=== PATIENT | male | born 1955 | race Caucasian/White ===

== ENCOUNTER 2020-04-17 13:13 | Inpatient (IN) | payer BC, OTHER ==
[~2020-04-17 13:13] MED LIST: CLOPIDOGREL 75 MG TABLET ONE; FENTANYL CITR 100 MCG/2 ML ONE; HEPARIN 5000 UNIT/ML 1 ML VIAL ONE; HEPARIN/D5W 25,000 UNIT/500 ML BAG IV ONE; MORPHINE 4 MG/ML SYR ONE; NA CHLORIDE 0.9% 1,000 ML ONE; ONDANSETRON 4 MG/2 ML VIAL ONE; TENECTEPLASE 50 MG/10 ML VIAL IV ONE
[2020-04-17 13:31] LABS: Absolute Lymphocytes (CBC) 1.6 K/uL (0.7-4.9); Lymphocytes % 27.7 % (15.3-44.8); MPV 9.4 fL (7.6-11.3)
[2020-04-17 13:32] LABS: Protime INR 0.97
--- OUTSIDE RECORDS SUMMARY | 2020-04-17 13:38 | XMS REPORT ---
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 Assessment Essential hypertension I10 Activ e Problem Essential hypertension I10 Activ e Problem Grieving F43.21 Active Problem Arthritis M19.90 Active Problem Right wrist pain M25.531 Active Problem 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 Problem ED (erectile dysfunction) N52.9 Ac tive Medications Medication Code Code Instructions Start End Status Dosage System Date Date Meloxicam [facility] [address]-62 15 MG Orally Active as directed Novolin R [facility] 21573695252 100 UNIT/ML Active 4 unit s Injection BID Diclofenac [facility] 85981225898 75 MG Orally Active 1 ta blet Sodium Twice a day with food or milk Lisinopril ND 50207180548 10 MG Orally October Active 1 ta blet Once a day 2019 Novolin N [facility] 39000764009 100 UNIT/ML Active 16 uni ts Subcutaneous BID Results Name Result Date Reference Range Unit Abnormali ty Flag HEMOGLOBIN A1C ----A1C 8.1 [id number] Summary Purpose eClinicalWorks Submission
--- OUTSIDE RECORDS SUMMARY | 2020-04-17 13:39 | XMS REPORT | Continuity of Care Document ---
:1955 Author Organization [facility] t Address [address] [place] [address] Care Team Providers Name Role Phone Unavailable Unavailable Unavailable Problems Condition Condition Condition Status Onset Resolution Last Treating Co mments Source Name Details Category Date Date Treatment Clinician Date ED ED Problem Active [facility]erectile Luke [facility] - dysfunctio dysfunctio Me moria n) n[facility] Diabetic Diabetic Problem [facility]urop polyneurop [facility] - athy athy Memoria associated associated l with type with type Outp ati 1 diabetes 1 diabetes en t mellitus mellitus Clinic s Grieving Grieving Problem [facility] Essential Essential Problem Active [facility] hypertensi hypertensi [facility] - on on [facility] Right Right Problem Active [facility] wrist pain wrist pain [facility] Arthritis Arthritis Problem Active [facility] Allergies, Adverse Reactions, Alerts Allergy Allergy Status Severity Reaction(s) Onset Inactive Treating Comm ents Source Name Type Date Date Clinician codeine Adverse Active rash [facility] Reaction [facility] Medications Ordered Filled Start Stop Current Ordering Indication Dosage Frequency Signature Comments Components Source Medication Medication Date Date Medication? Clinician (SIG) Name Name Lisinopril Lisinopril Yes Catie [address] [facility]17 [place] [facility] Novolin R Novolin R Yes Catie [address] [place] [facility]ics Novolin N Novolin N Yes Catie [address] [facility] [place] [facility] Meloxicam Meloxicam Yes Catie as [facility] [place] [facility] Diclofenac Diclofenac Yes Catie [address] [facility] Sodium Sodium [place] with food [facility] - or milk [facility] ent [facility] Immunizations Ordered Filled Immunization Date Status Comments Sour e Immunization Name Name Flucelvax - single Flucelvax - single 2019-09-[address] [facility] - dose syringe dose syringe 00:00:00 [facility] Flucelvax - Flucelvax - 2018-08-[address] [facility] - multidose vial multidose vial 00:00:00 [facility] Procedures This patient has no known procedures. Encounters Start End Encounter Admission Attending Care Care Encounter Source Date/Time Date/Time Type Type Clinicians Facility Department ID 2020-03-02 2020-03-02 [facility] [id number] [facility] 08[facility]00[facility]00 08:00:00 [facility] 2019-12-06 2019-12-06 Outpatient [facility] [id number] 16:09:00 16:09:00 [facility] 2019-11-25 2019-11-25 [facility] [id number] 09:40:00 09:40:00 [facility] Clinics 2019-10-21 2019-10-21 [facility] [id number] 08:40:00 08:40:00 [facility] 2019-09-02 2019-09-02 [facility] [id number] [address] 09:20:00 09:20:00 [facility] 2019-07-21 2019-07-21 [facility] [id number] 16:40:00 16:40:00 [facility] Clinics 2019-07-18 2019-07-18 [facility] [id number] 15:18:00 15:18:00 [facility] Medicine Outpati ent Clinics 2019-06-17 2019-06-17 [facility] [id number] 12:09[facility]00 12:09:[facility] Outpati ent Clinics 2019-06-08 2019-06-08 [facility] [id number] [address] 10:00[facility]00 10:00:00 [facility] Outpati ent Clinics 2018-09-03 2018-09-03 [facility] [id number] [address] 12:10[facility]00 12:10:00 [facility] Outpati ent Clinics 2018-08-18 2018-08-18 [facility] [id number] 15:30[facility] 15:[facility]00 [facility] Results This patient has no known results.
[2020-04-17 13:45] LABS: ALT/SGPT 31 U/L (12-78); AST/SGOT 28 U/L (15-37); Albumin 4.2 g/dL (3.4-5.0); Alkaline Phosphatase 89 U/L (45-117); BUN Blood Urea Nitrogen 24 mg/dL (7-18); Bicarbonate 29 mmol/L (21-32); Bilirubin Direct 0.2 mg/dL (0-0.2); Bilirubin Total 0.7 mg/dL (0.2-1.0); Glucose Level 104 mg/dL (74-106); Magnesium 2.2 mg/dL (1.8-2.4); NT PRO-BNP 178 pg/mL (<125); Potassium 3.9 mmol/L (3.5-5.1); Protein, Total 7.1 g/dL (6.4-8.2); Sodium Level 136 mmol/L (136-145); Troponin (Emerg Dept Use Only) < 0.02 ng/mL (0.0-0.045)
--- NOTE | 2020-04-17 14:05 | RAD REPORT ---
EXAM DESCRIPTION: CT - Angio Aorta For Dissection - 04/17/2020 1:46 pm CLINICAL HISTORY: CHEST PAIN COMPARISON: None. TECHNIQUE: Dynamically enhanced 3 mm thick images of the chest, abdomen, and upper pelvis were obtai ana during administration of approximately 150mL Isovue 370 IV contrast. Sagittal and coronal reconst ruction images were generated using MIP and reviewed. Exam utilizes a protocol to evaluate entire cou rse of the aorta. All CT scans are performed using dose optimization technique as appropriate and may include automated exposure control or mA/KV adjustment according to patient size. FINDINGS: Aorta is normal in diameter with no dissection or other acute aortic findings. Reconstruct ion images show no significant findings. Patient has minimal aortoiliac atherosclerotic calcification s without luminal narrowing. Great vessel origins from the arch are unremarkable. Left vertebral hilda ry arises from the arch has a normal variant. Normal pulmonary artery enhancement. No emboli. No cardiomegaly, pericardial thickening or pericardia l effusion. No mass or infiltrate in the lung parenchyma. No pleural thickening, pleural effusion or pneumothorax . No abnormal mediastinal or hilar mass or lymphadenopathy seen. No chest wall mass or abnormal axillar y lymphadenopathy. Celiac, SMA and renal arteries show no suspicious findings. The liver, spleen and pancreas show no cuellar spicious findings. No gallbladder or biliary tree abnormality. No hydronephrosis or renal obstructive finding. No pyelonephritis or acute renal parenchymal process seen. A prompt, symmetric renal enhanc ement pattern is seen. Partially filled urinary bladder shows no suspicious finding. No mass or bulky lymphadenopathy in the peritoneal or retroperitoneal spaces. No free air, free fluid or inflammatory stranding. No gastric wall thickening or mass. No small bowel abnormality. Moderate stool volume throughout the colon. There is thickening along the left lateral distal rectal wall. CT evaluation is limited but fo llow-up is warranted to exclude mass. Disc and bony degenerative changes are present throughout the lumbar spine. Patient has borderline sp inal stenosis at L4-5 from disc bulge facet degenerative change and ligamentous thickening. Disc bulg e is evident at multiple lumbar levels. Central canal detail is limited. IMPRESSION: Negative CT scan of the aorta for acute finding. Patient has mild for age aortoiliac ath erosclerotic calcifications. No pulmonary artery abnormality or lung parenchymal abnormality seen. No hydronephrosis, obstructing calculus or acute finding. Questionable thickening along the left lateral rectal wall warranting follow-up. Lumbar degenerative disc disease with borderline spinal stenosis at L4-5.
[2020-04-17] MEDS ORDERED: PROMETHAZINE INJ 25 MG/ML AMP ONE (14:45)
--- NOTE | 2020-04-17 14:45 | RAD REPORT ---
EXAM DESCRIPTION: RAD - Chest Single View - 04/17/2020 2:15 pm CLINICAL HISTORY: CHEST PAIN COMPARISON: None TECHNIQUE: AP portable chest image was obtained 04/17/2020 2:15 pm . FINDINGS: No peripheral mass or consolidation. No significant failure or volume overload seen. Inter stitial markings are prominent suspected to be baseline fibrotic change. Trachea is midline. Heart an d vasculature are normal. No measurable pleural effusion and no pneumothorax. No acute bony abnormali ty seen. No acute aortic findings suspected. IMPRESSION: No peripheral mass or consolidation. Prominent interstitial markings suspected to be baseline fibrotic change.
--- NOTE | 2020-04-17 14:48 | ER ---
Nurse's Notes [facility] Name: Meir Scanlon Jr Age: 64 yrs Sex: Male : 1955 Arrival Date: 04/17/2020 Time: 13:14 Bed 8 Private MD: Diagnosis: ST elevation (STEMI) myocardial infarction of unspecified site Presentation: 04/17 13:14 Chief complaint: Patient states: right flank pain X 2 days, was working in heat, in iw slicker suit, pain increased, EKG was done by EMS reported possible ST elevation in V3 V4 V5, pt has hx of kidney stones, pain feels similar. Coronavirus screen: At this time, the client does not indicate any symptoms associated with coronavirus-19. Ebola Screen: Patient negative for fever greater than or equal to 101.5 degrees Fahrenheit, and additional compatible Ebola Virus Disease symptoms Patient denies exposure to infectious person. Patient denies travel to an Ebola-affected area in the 21 days before illness onset. No symptoms or risks identified at this time. Initial Sepsis Screen: Does the patient meet any 2 criteria? No. Patient's initial sepsis screen is negative. Does the patient have a suspected source of infection? No. Patient's initial sepsis screen is negative. Risk Assessment: Do you want to hurt yourself or someone else? Patient reports no desire to harm self or others. Onset of symptoms was April 15, 2020. 13:14 Method Of Arrival: EMS: [facility] iw 13:14 Acuity: REJI 2 iw 13:18 Care prior to arrival: Medication(s) given: ASA, 81 mg, x 4, Nitroglycerin, x 1, iw fentanyl 50 mcg IVP IV initiated. 20 GA, in the right antecubital area. Historical: - Allergies: 13:23 Codeine; iw - Home Meds: 13:23 lisinopril 10 mg Oral tab 1 tab once daily [Active]; diclofenac sodium 75 mg oral TbEC iw 1 tab 2 times per day [Active]; - PMHx: 13:23 Arthritis; Hypertension; Kidney stones; iw 15:00 Diabetes - IDDM; aa5 - PSHx: 13:23 None; iw - Immunization history:: Adult Immunizations up to date. - Social history:: Smoking status: Patient uses. - Family history:: not pertinent. - Hospitalizations: : No recent hospitalization is reported. Screenin:15 Abuse screen: Denies threats or abuse. Nutritional screening: No deficits noted. aa5 Tuberculosis screening: No symptoms or risk factors identified. Fall Risk None identified. Assessment: 13:15 General: Appears comfortable, Behavior is calm, cooperative. Pain: Complains of pain in aa5 right flank Pain does not radiate. Pain currently is 3 out of 10 on a pain scale. Quality of pain is described as sharp, Pain began 2-3 days ago. Is intermittent. Neuro: Level of Consciousness is awake, alert, obeys commands, Oriented to person, place, time, situation. Cardiovascular: Heart tones S1 S2 present Rhythm is regular. Respiratory: Airway is patent Respiratory effort is even, unlabored, Respiratory pattern is regular, symmetrical, Denies shortness of breath. GI: Abdomen is round non-distended, Bowel sounds present X 4 quads. Abd is soft and non tender X 4 quads. Patient currently denies nausea, vomiting. : No signs and/or symptoms were reported regarding the genitourinary system. EENT: No signs and/or symptoms were reported regarding the EENT system. Derm: Skin is moist, Skin is normal, Skin temperature is cool. Musculoskeletal: Range of motion: intact in all extremities. 13:30 Reassessment: Patient is alert, oriented x 3, equal unlabored respirations, skin aa5 warm/dry/pink. Patient denies pain at this time. Patient states feeling better. 14:00 Reassessment: Patient is alert, oriented x 3, equal unlabored respirations, skin aa5 warm/dry/pink. Patient denies pain at this time. 14:35 Reassessment: Repeat EKG completed. ST elevation noted, MD was notified. Pt c/o right aa5 flank pain, rates pain 10/10 on a pain scale. Pt appears uncomfortable. Reports nausea. . 14:35 Derm: Skin is moist, Skin is normal, Skin temperature is cool. aa5 14:45 Neuro: Level of Consciousness is awake, alert, obeys commands, Oriented to person, aa5 place, time, situation. Respiratory: Airway is patent Respiratory effort is even, unlabored, Respiratory pattern is regular, symmetrical. Derm: Skin is moist, Skin is normal, Skin temperature is cool. 14:45 General: Appears uncomfortable. Pain: Pain currently is 10 out of 10 on a pain scale. aa5 14:50 Reassessment: industrial laborer nurse, Delilah, at bedside . aa5 14:50 Reassessment: Patient is alert, oriented x 3, equal unlabored respirations, skin aa5 warm/dry/pink. Patient states feeling better. Pain: Pain currently is 0 out of 10 on a pain scale. Vital Signs: 13:14 BP 140 / 67; Pulse 80; Resp 18 S; Pulse Ox 100% on R/A; iw 13:24 Temp 97.5(O); iw 14:00 BP 140 / 65; Pulse 82; Resp 18 S; Pulse Ox 98% on R/A; aa5 14:35 Weight 73.03 kg (M); aa5 14:45 BP 123 / 61; Pulse 83; Resp 16 S; Pulse Ox 100% on 2 lpm NC; aa5 15:00 BP 128 / 68; Pulse 86; Resp 16 S; Pulse Ox 100% on 2 lpm NC; aa5 ED Course: 13:00 Inserted Maintain EMS IV. Dressing intact. Good blood return noted. Site clean \T\ dry. iw Gauge \T\ site: 20 RAC. 13:14 Patient arrived in ED. iw 13:16 Triage completed. iw 13:17 Quique Suresh MD is Attending Physician. rn 13:19 Meli Krishnamurthy RN is Primary Nurse. aa5 13:19 Arm band placed on. iw 13:20 Patient has correct armband on for positive identification. Placed in gown. Bed in low aa5 position. Call light in reach. Side rails up X2. front end specialist on. Pulse ox on. NIBP on. 13:47 CT Aorta for Dissection In Process Unspecified. EDMS 14:15 XRAY Chest (1 view) In Process Unspecified. EDMS 14:47 Baljinder Suresh MD is Hospitalizing Provider. rn 14:51 Inserted saline lock: 20 gauge in left antecubital area, using aseptic technique. IV iw inserted by MARILOU Castano. 15:00 No provider procedures requiring assistance completed. Patient admitted, IV remains in aa5 place. Administered Medications: 14:41 CANCELLED (Dr. Palak doran dno plavix): PlaVIX 300 mg PO once rn 14:45 Drug: Phenergan 12.5 mg Route: IVP; Site: right antecubital; aa5 14:45 Drug: Demerol 25 mg Route: IVP; Site: right antecubital; aa5 14:50 Drug: Heparin ([place]-Bolus No thrombolytic) - HEParin 60 units/kg {Co-Signature: aa5 iw (Meli Krishnamurthy RN).} {Note: 4000 units administered per MD.} Route: IVP; Site: right antecubital; 14:51 Drug: Heparin ([place] Drip) 12 units/kg/hr - (HEParin 23063 units, D5W 500 ml) iw {Co-Signature: aa5 (Meli Krishnamurthy RN).} Route: IV; Rate: calculated rate; Site: right antecubital; Outcome: 14:47 Decision to Hospitalize by Provider. rn 15:00 Admitted to [employer] accompanied by nurse, accompanied by tech, via stretcher, with aa5 oxygen, on monitor, with chart. 15:00 Condition: stable 15:00 Instructed on the need for admit, Demonstrated understanding of instructions. 15:09 Patient left the ED. aa5 Signatures: Dispatcher [employer] Shelley Barriga, RN RN iw Quique Suresh MD MD rn Calderon, Audri, RN RN [email or web address] Meli Krishnamurthy RN aa5 Corrections: (The following items were deleted from the chart) 17:05 14:35 Reassessment: Repeat EKG completed. aa5 aa5 17:11 14:35 Reassessment: Repeat EKG completed. ST elevation noted, was notified. Pt c/o aa5 right flank pain, rates pain 10/10 on a pain scale. Pt appears uncomfortable. . aa5
--- NOTE | 2020-04-17 14:48 | EDPHYS ---
Physician Documentation [facility] Name: Meir Scanlon Jr Age: 64 yrs Sex: Male : 1955 Arrival Date: 04/17/2020 Time: 13:14 Bed 8 Private MD: ED Physician Quique Suresh HPI: 04/17 14:32 This 64 yrs old Male presents to ER via EMS with complaints of Flank Pain. rn 14:32 The patient complains of pain in the mid back area. The pain does not radiate. Onset: rn The symptoms/episode began/occurred just prior to arrival. Modifying factors: The symptoms are alleviated by nothing. the symptoms are aggravated by nothing. Severity of pain: At its worst the pain was moderate in the emergency department the pain has improved. The patient has not experienced similar symptoms in the past. Reports at work, + right flank/side pain, non-radiating, was diaphoretic and nauseated at work, EMS called, ECG showed ST elevation V3-V5, given aspirin/nitro/fentanyl with improvement of symptoms, pain nearly resolved by time he got here. No trauma. . Historical: - Allergies: 13:23 Codeine; iw - Home Meds: 13:23 lisinopril 10 mg Oral tab 1 tab once daily [Active]; diclofenac sodium 75 mg oral TbEC iw 1 tab 2 times per day [Active]; - PMHx: 13:23 Arthritis; Hypertension; Kidney stones; iw 15:00 Diabetes - IDDM; aa5 - PSHx: 13:23 None; iw - Immunization history:: Adult Immunizations up to date. - Social history:: Smoking status: Patient uses. - Family history:: not pertinent. - Hospitalizations: : No recent hospitalization is reported. ROS: 14:32 Constitutional: Negative for fever, chills, and weight loss, Eyes: Negative for injury, rn pain, redness, and discharge, Neck: Negative for injury, pain, and swelling, Cardiovascular: Negative for chest pain, palpitations, and edema, Respiratory: Negative for shortness of breath, cough, wheezing, and pleuritic chest pain, Abdomen/GI: + nausea Back: + right flank pain MS/Extremity: Negative for injury and deformity, Skin: Negative for injury, rash, and discoloration, Neuro: Negative for headache, weakness, numbness, tingling, and seizure. Exam: 14:32 Constitutional: This is a well developed, well nourished patient who is awake, alert, rn and in no acute distress. Head/Face: Normocephalic, atraumatic. Neck: Trachea midline, no masses palpated, and no cervical lymphadenopathy. Supple, full range of motion without nuchal rigidity, or vertebral point tenderness. No Meningismus. Cardiovascular: Regular rate and rhythm. No pulse deficits. Respiratory: No increased work of breathing, no retractions or nasal flaring. Abdomen/GI: soft, non-tender MS/ Extremity: Pulses equal, no cyanosis. Neurovascular intact. Full, normal range of motion. Equal circumference. Neuro: Awake and alert, GCS 15, oriented to person, place, time, and situation. Cranial nerves II-XII grossly intact. Motor strength 5/5 in all extremities. Sensory grossly intact. 14:39 ECG was reviewed by the Attending Physician. rn Vital Signs: 13:14 BP 140 / 67; Pulse 80; Resp 18 S; Pulse Ox 100% on R/A; iw 13:24 Temp 97.5(O); iw 14:00 BP 140 / 65; Pulse 82; Resp 18 S; Pulse Ox 98% on R/A; aa5 14:35 Weight 73.03 kg (M); aa5 14:45 BP 123 / 61; Pulse 83; Resp 16 S; Pulse Ox 100% on 2 lpm NC; aa5 15:00 BP 128 / 68; Pulse 86; Resp 16 S; Pulse Ox 100% on 2 lpm NC; aa5 MDM: 13:17 Patient medically screened. rn 14:32 Differential diagnosis: nephrolithiasis, appendicitis, kidney stone, dissection, [place]. rn Data reviewed: vital signs, nurses notes, lab test result(s), EKG, radiologic studies, CT scan, and as a result, I will admit patient. Counseling: I had a detailed discussion with the patient and/or guardian regarding: the historical points, exam findings, and any diagnostic results supporting the discharge/admit diagnosis, lab results, radiology results, the need for further work-up and treatment in the hospital. 14:38 ED course: Pt called nurse, having increased pain again, repeat ECG ordered, and now rn shows ST elevation once again, anterior/lateral leads. Cardiology paged, Initial troponin neg. Given aspirin/nitro by EMS, will add heparin and plavix. . 14:46 ED course: Consulted with Dr. 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 . 04/17 13:16 Order name: Basic Metabolic Panel; Complete Time: 13:53 mt 04/17 13:16 Order name: CBC with Diff; Complete Time: 13:53 mt 04/17 13:16 Order name: LFT's; Complete Time: 13:53 mt 04/17 13:16 Order name: Magnesium; Complete Time: 13:53 mt 04/17 13:16 Order name: NT PRO-BNP; Complete Time: 13:53 mt 04/17 13:16 Order name: PT-INR; Complete Time: 13:53 mt 04/17 13:16 Order name: Troponin (emerg Dept Use Only); Complete Time: 13:53 mt 04/17 13:16 Order name: XRAY Chest (1 view) mt 04/17 13:18 Order name: CT Aorta for Dissection; Complete Time: 14:12 rn 04/17 14:31 Order name: CREATININE WHOLE BLOOD EDAK 04/17 13:16 Order name: EKG; Complete Time: 13:17 mt 04/17 13:16 Order name: Cardiac monitoring; Complete Time: 13:17 mt 04/17 13:16 Order name: EKG - Nurse/Tech; Complete Time: 13:17 mt 04/17 13:16 Order name: IV Saline Lock; Complete Time: 13:17 mt 04/17 13:16 Order name: Labs collected and sent; Complete Time: 13:19 mt 04/17 13:16 Order name: O2 Per Protocol; Complete Time: 13:17 mt 04/17 13:16 Order name: O2 Sat Monitoring; Complete Time: 13:17 mt 04/17 14:13 Order name: EKG; Complete Time: 14:14 rn 04/17 14:13 Order name: EKG - Nurse/Tech; Complete Time: 14:56 rn EC:45 Rate is 67 beats/min. Rhythm is regular. QRS [place] is Normal. WI interval is normal. QRS rn interval is normal. QT interval is normal. No Q waves. T waves are Normal. ST Segment is elevated in leads V3, V4, V5, V6. Clinical impression: Lateral [place] - acute. Interpreted by me. Reviewed by me. Administered Medications: 14:41 CANCELLED (Dr. Palak doran dno plavix): PlaVIX 300 mg PO once rn 14:45 Drug: Phenergan 12.5 mg Route: IVP; Site: right antecubital; aa5 14:45 Drug: Demerol 25 mg Route: IVP; Site: right antecubital; aa5 14:50 Drug: Heparin ([place]-Bolus No thrombolytic) - HEParin 60 units/kg {Co-Signature: aaJuventino iw (Meli Krishnamurthy RN).} {Note: 4000 units administered per MD.} Route: IVP; Site: right antecubital; 14:51 Drug: Heparin ([place] Drip) 12 units/kg/hr - (HEParin 70253 units, D5W 500 ml) iw {Co-Signature: aaJuventino (Meli Krishnamurthy RN).} Route: IV; Rate: calculated rate; Site: right antecubital; Disposition: 04/17/20 14:47 Hospitalization ordered by Baljinder Suresh for Inpatient Admission. Preliminary diagnosis is ST elevation (STEMI) myocardial infarction of unspecified site. - Bed requested for Intensive Care Unit. - Status is Inpatient Admission. aa5 - Condition is Stable. - Problem is new. - Symptoms have improved. Critical care time excluding procedures: 14:46 Critical care time: Bedside Care: 25 minutes, Consultation: 5 minutes. Total time: 30 rn minutes Signatures: Dispatcher [employer] Shelley Barriga RN RN iw Nieto, Roman, MD MD rn Calderon, Audri, RN RN aa5 Becky Moncada il Meli [email or web address] Corrections: (The following items were deleted from the chart) 14:41 14:38 PlaVIX 300 mg PO once ordered. rn rn 14:46 14:39 ECG was reviewed by the Attending Physician. rn rn 15:09 14:47 Hospitalization Ordered by Baljinder Suresh MD for Inpatient Admission. Preliminary aa5 diagnosis is ST elevation (STEMI) myocardial infarction of unspecified site. Bed requested for Intensive Care Unit. Status is Inpatient Admission. Condition is Stable. Problem is new. Symptoms have improved. rn
[2020-04-17] MEDS ORDERED: HEPARIN/D5W 25,000 UNIT/500 ML BAG IV ONE (14:55)
[2020-04-17] MEDS ORDERED: MEPERIDINE HCL 50 MG/ML ONE (14:55)
[2020-04-17] MEDS ORDERED: ATROPINE SULF 1 MG/10 ML SYR IV ONE (15:16)
[2020-04-17] MEDS ORDERED: FENTANYL CITR 100 MCG/2 ML ONE ×2 (15:16→16:10)
[2020-04-17] MEDS ORDERED: MIDAZOLAM HCL 2 MG/2 ML INJ ONE ×2 (15:16→15:48)
[2020-04-17] MEDS ORDERED: NITROGLYCERIN 100 MCG/ML SYR (for cath lab use only) IV ONE (15:16)
[2020-04-17] MEDS ORDERED: LIDOCAINE 1% 20 ML MDV ONE (15:16)
[2020-04-17] MEDS ORDERED: HEPA 1000U/500MLS 1,000 UNIT/500 ML BAG IV ONE (15:16)
[2020-04-17] MEDS ORDERED: NA CHLORIDE 0.9% 50 ML ONE (15:17)
[2020-04-17] MEDS ORDERED: NA CHLORIDE 0.9% 1,000 ML ONE ×2 (15:18→20:22)
[2020-04-17 16:04] VITALS: O2SAT 100
--- NOTE | 2020-04-17 16:08 | P.HP ---
Certification for Inpatient Patient admitted to: Inpatient With expected LOS: >2 Midnights Practitioner: I am a practitioner with admitting privileges, knowledge of patient current condition, hospital course, and medical plan of care. Services: Services provided to patient in accordance with Admission requirements found in Title 42 Section 412.3 of the Code of Federal Regulations Patient History Date of Service: 04/17/20 Primary Care Provider: Mahesh Reason for admission: STEMI History of Present Illness: 64yo male, PMH: HTN, DM2 insulin dependent, kidney stones, who presented to ED due to sudden onset R flank pain at work today. Patient states he was otherwise in his usual state of health. no radiation. not alleviated or aggravated by anything. Moderate pain, associated with nausea and diaphoresis at work. EMS was called and repoted ECG showing ST elevation V3-V5, given aspirin, nitro, fentanyl with improvement in symptoms. Initital vitals were WNL and stable. repeat ECG on arrival with resolution of ST changes, then patient had recurrence of patient and repeat ECG with ST elevations again. Initial troponin negative. Cardiology was consulted and patient will go for cardiac catheterization. - Past Medical/Surgical History -: HTN -: Insulin dependent DM2 -: kidney stones Past Surgical History: Unable to obtain - Family History Father -: Heart disease ([place] in early 60s) - Social History Smoking Status: Current every day smoker (cigars) Alcohol use: Yes Place of Residence: Home Review of Systems 10-point ROS is otherwise unremarkable Physical Examination - Physical Exam General: Alert, In no apparent distress, Oriented x3 HEENT: EOMI, Sclerae nonicteric Neck: No LAD Respiratory: Clear to auscultation bilaterally, Normal air movement Cardiovascular: No edema, Regular rate/rhythm, Normal S1 S2 Gastrointestinal: Soft and benign, Non-distended, No tenderness Musculoskeletal: No erythema Integumentary: No rashes Neurological: Normal speech, Normal affect - Studies Laboratory Data (last 24 hrs) 04/17/20 13:15: PT 11.4, INR 0.97 04/17/20 13:15: WBC 5.9, Hgb 14.5, Hct 42.0, Plt Count 216 04/17/20 13:15: Sodium 136, Potassium 3.9, BUN 24 H, Creatinine 1.04, Glucose 104, Magnesium 2.2, Total Bilirubin 0.7, AST 28, ALT 31, Alkaline Phosphatase 89 Assessment and Plan - Advance Directives Does patient have a Living Will: No Does patient have a Durable POA for Healthcare: No Physician Review Additional Text: STEMI R Flank pain HTN DM2 Tobacco use -cardiology consulted in ED, pt taken to quality lab technician during my exam -I will f/u with cardiology after cath -CT dissection protocol negative for aorta pathology, no obstructing kidney stone -R flank pain - atypical presentation of ACS, but pt is diabetic -will confirm and restart home meds as appropriate -for now, glc accucheks, sliding scale insulin -admits to drinking EtOH daily, but last drink was ~5 days ago, no h/o withdrawal Dispo: pending cath results Time Spent Managing Pts Care (In Minutes): 55
[2020-04-17] MEDS ORDERED: PRASUGREL (EFFIENT) 10 MG TAB PO ONE (17:00)
[2020-04-17] MEDS ORDERED: ACETYLCYST 20% 800 MG/4 ML VIAL PO ONE (18:00)
[2020-04-17] MEDS: INSULIN -REGULAR HUMAN 50 UNIT/0.5 ML ML SQ SCH ×2 (18:00→20:10)
[2020-04-17] MEDS ORDERED: INFLUENZA VACCINE (for 3y+) 0.5 ML DOSE IMVAC ONE (19:00)
[2020-04-17] MEDS ORDERED: PRASUGREL (EFFIENT) 10 MG TAB ONE (19:02)
[2020-04-17] MEDS ORDERED: ACETAMINOPHEN 325 MG TABLET PO PRN (19:22)
[2020-04-17 19:38] VITALS: BMI 23.6
[2020-04-17] MEDS: NA CHLORIDE 0.9% 1,000 ML IV SCH (20:10)
[2020-04-17] MEDS ORDERED: DIAZEPAM 5 MG TABLET PO PRN (21:31)
[2020-04-17] MEDS ORDERED: MORPHINE 4 MG/ML SYR IV PRN (21:31)
[2020-04-17] MEDS ORDERED: NITROGLYCERIN 0.4 MG/TAB SL PRN (21:36)
[2020-04-17] MEDS ORDERED: MORPHINE 4 MG/ML SYR ONE (21:56)
[2020-04-18] MEDS: NA CHLORIDE 0.9% 1,000 ML IV SCH (02:29)
[2020-04-18 05:20] LABS: Absolute Lymphocytes (CBC) 1.8 K/uL (0.7-4.9); Basophils % 0.6 % (0-1.3); Hematocrit 41.1 % (39.6-49.0); Lymphocytes % 27.3 % (15.3-44.8); MPV 9.3 fL (7.6-11.3); RBC Red Blood Cell Count 4.51 M/uL (4.33-5.43)
[2020-04-18 05:34] LABS: Albumin 3.2 g/dL (3.4-5.0); Bilirubin Total 0.8 mg/dL (0.2-1.0); Magnesium 1.9 mg/dL (1.8-2.4); Potassium 4.5 mmol/L (3.5-5.1); Protein, Total 6.1 g/dL (6.4-8.2)
[2020-04-18 07:29] VITALS: TEMP 98.7
[2020-04-18] MEDS: INSULIN -REGULAR HUMAN 50 UNIT/0.5 ML ML SQ SCH (07:30)
[2020-04-18] MEDS ORDERED: GLUCAGON 1 MG/VIAL IM PRN (08:10)
[2020-04-18] MEDS ORDERED: D50W 25 GM/50 ML SYRINGE/VIAL IV PRN (08:10)
[2020-04-18] MEDS ORDERED: INSULIN -REGULAR HUMAN 50 UNIT/0.5 ML ML ONE (08:40)
--- NOTE | 2020-04-18 09:15 | P.DS ---
Admission Date: 04/17/20 Discharge Date: 04/18/20 Primary Care Provider: Mahesh Disposition: ROUTINE DISCHARGE Discharge Condition: GOOD Reason for Admission: STEMI Consultations: Cardiology - Dr. Cid Procedures: CXR (04/17): No peripheral mass or consolidation. Prominent interstitial markings suspect to be baseline fibrotic change. CT angio dissection protocol (04/17): Negative CT scan of the aorta for acute finding. The patient has mild her HGB aortic iliac atherosclerotic calcifications. No pulmonary artery abnormality or lung parenchymal abno rmalities seen. No Hydronephrosis, obstructing calculus or acute finding. Questionable thickening along the left lateral rectal wall warranting followup. Lumbar degenerative disk disease with borderline spinal stenosis at L4-L5 Renal ultrasound (04/18) no hydronephrosis or suspicious renal mass. No other significant findings Cardiac Catheterization (04/17): Final report unavailable at time of discharge, the patient underwent stenting of the RCA due to 90% stenosis Problem List: STEMI R Flank pain HTN Type 1 Diabetes Tobacco use Brief History of Present Illness: 64yo male, PMH: HTN, DM2 insulin dependent, kidney stones, who presented to ED due to sudden onset R flank pain at work today. Patient states he was otherwise in his usual state of health. no radiation. not alleviated or aggravated by anything. Moderate pain, associated with nausea and diaphoresis at work. EMS was called and reported ECG showing ST elevation V3-V5, given aspirin, nitro, fentanyl with improvement in symptoms. Initital vitals were WNL and stable. repeat ECG on arrival with resolution of ST changes, then patient had recurrence of patient and repeat ECG with ST elevations again. Initial troponin negative. Cardiology was consulted and patient will go for cardiac catheterization. Hospital Course: Patient was taken to the cardiac shift lab technician, and underwent stenting of the distal RCA due to 90% stenosis. On the following day, patient was feeling well, tolerating diet, with stable vital signs and he was discharged home. On day of discharge she still continued to report some right flank/hip pain. This was reproducible on exam and aggravated with movement. CT was reviewed and did not show any intra-abdominal abnormality. The pain is likely musculoskeletal and patient was discharged with Flexeril and to follow up with PCP. His discharge prescriptions for aspirin, Lipitor, and Plavix. He is to follow up with Cardiology. Vital Signs/Physical Exam: Temp Pulse Resp BP Pulse Ox 98.7 F 62 12 111/51 L 99 04/18/20 07:00 04/18/20 06:00 04/18/20 06:00 04/18/20 06:00 04/18/20 06:00 General: Alert, In no apparent distress, Oriented x3 HEENT: Mucous membr. moist/pink Neck: No LAD Respiratory: Clear to auscultation bilaterally, Normal air movement Cardiovascular: No edema, Regular rate/rhythm, Normal S1 S2 Gastrointestinal: Soft and benign, Non-distended, No tenderness Musculoskeletal: Other (mild tenderness to palpation at R flank / just posterior to iliac crest. no tenderness down spine or of paraspinal muscles) Integumentary: No rashes, No breakdown Neurological: Normal speech, Normal affect Laboratory Data at Discharge: WBC 6.6 K/uL (4.3-10.9) 04/18/20 05:00 Hgb 14.3 g/dL (13.6-17.9) 04/18/20 05:00 Hct 41.1 % (39.6-49.0) 04/18/20 05:00 Plt Count 188 K/uL (152-406) 04/18/20 05:00 PT 11.4 SECONDS (9.5-12.5) 04/17/20 13:15 INR 0.97 04/17/20 13:15 Sodium 138 mmol/L (136-145) 04/18/20 05:00 Potassium 4.5 mmol/L (3.5-5.1) 04/18/20 05:00 BUN 16 mg/dL (7-18) 04/18/20 05:00 Creatinine 0.87 mg/dL (0.55-1.3) 04/18/20 05:00 Glucose 279 mg/dL (74-106) H 04/18/20 05:00 Magnesium 1.9 mg/dL (1.8-2.4) 04/18/20 05:00 Total Bilirubin 0.8 mg/dL (0.2-1.0) 04/18/20 05:00 AST 19 U/L (15-37) 04/18/20 05:00 ALT 25 U/L (12-78) 04/18/20 05:00 Alkaline Phosphatase 66 U/L (45-117) 04/18/20 05:00 Triglycerides 60 mg/dL (<150) 04/18/20 05:00 Cholesterol 155 mg/dL (<200) 04/18/20 05:00 HDL Cholesterol 55 mg/dL (40-60) 04/18/20 05:00 Cholesterol/HDL Ratio 2.82 04/18/20 05:00 Home Medications: Diclofenac Na [Voltaren D.r*] 75 mg PO DAILY 04/17/20 Insulin NPH Human Isophane [Novolin N] 16 units SQ BIDWM 04/17/20 Insulin Regular, Human [Novolin R] 4 units SQ BIDWM 04/17/20 Lisinopril [Zestril] 10 mg PO DAILY 04/17/20 Aspirin [Aspirin EC 81 MG] 81 mg PO DAILY 30 Days #30 tablet. 04/18/20 Atorvastatin Calcium [Lipitor] 1 tab PO BEDTIME 30 Days #30 tab 04/18/20 Clopidogrel Bisulfate [Plavix*] 1 tab PO DAILY 30 Days #30 tablet 04/18/20 Cyclobenzaprine HCl [Flexeril] 5 mg PO Q8HR PRN 4 Days #12 tablet 04/18/20 New Medications: Cyclobenzaprine HCl [Flexeril] 5 mg PO Q8HR PRN 4 Days #12 tablet PRN Reason: Muscle Spasms Aspirin [Aspirin EC 81 MG] 81 mg PO DAILY 30 Days #30 tablet. Atorvastatin Calcium [Lipitor] 1 tab PO BEDTIME 30 Days #30 tab Clopidogrel Bisulfate [Plavix*] 1 tab PO DAILY 30 Days #30 tablet Patient Discharge Instructions: Follow up with PCP within 1 week. Follow up with Cardiology within 2-3 weeks. New Medications: Aspirin 81mg daily. Clopidrogrel 75mg (Plavix) daily. Atorvastatin 80mg (Lipitor) - once a day at bedtime Diet: ADA Activity: Ad ann Time spent managing pt's care (in minutes): 35
--- NOTE | 2020-04-18 09:19 | RAD REPORT ---
EXAM DESCRIPTION: US - Renal Ultrasound-Complete - 04/18/2020 8:58 am CLINICAL HISTORY: R flank pain, h/o nephrolithiasis COMPARISON: Angio Aorta For Dissection dated 04/17/2020 FINDINGS: The right kidney measures 10.8 x 4.7 x 5.7 cm. The left kidney measures 11.1 x 5.6 x 5.2 cm. Renal cortical thickness and echogenicity are normal. No hydronephrosis or suspicious renal mass. No bladder wall thickening or mass. No intraluminal stone or mass. IMPRESSION: No hydronephrosis or suspicious renal mass. No other significant findings.
[2020-04-18] MEDS: NPH (HUMAN) 100 UNITS/ML INSULIN SQ SCH ×2 (09:28→09:31)
[2020-04-18] MEDS: CLOPIDOGREL 75 MG TABLET PO SCH (09:29)
[2020-04-18] MEDS: ASPIRIN EC 81 MG TAB PO SCH (09:29)
[2020-04-18] MEDS ORDERED: ASPIRIN EC 81 MG TAB PO ONE (09:35)
[2020-04-18] MEDS ORDERED: CLOPIDOGREL 75 MG TABLET ONE (09:35)
[2020-04-18 09:36] VITALS: BP 132/53
[2020-04-18] MEDS ORDERED: NPH (HUMAN) 100 UNITS/ML INSULIN SQ ONE (09:40)
[2020-04-18] MEDS ORDERED: NA CHLORIDE 0.9% 1,000 ML ONE (12:15)
[2020-04-18] MEDS ORDERED: ATORVASTATIN 80 MG TAB PO SCH (21:00)
--- NOTE | 2020-04-19 07:08 | EKG ---
Test Date: 2020-04-17 Test Time: 13:10:45 Information Clerk Cashier: GEOFFREY MEASUREMENT RESULTS: Intervals: Rate: 83 RI: 198 QRSD: 86 QT: 390 QTc: 458 [place]: P: 72 RI: 198 QRS: 28 T: 83 INTERPRETIVE STATEMENTS: Normal sinus rhythm Biatrial enlargement Abnormal ECG No previous ECG available for comparison Electronically Signed On 04-19-20 07:04:16 CDT by Duke Cid
--- NOTE | 2020-04-19 07:08 | EKG ---
Test Date: 2020-04-17 Test Time: 14:35:56 Police Crime Scene Technician: GEOFFREY MEASUREMENT RESULTS: Intervals: Rate: 67 IL: 196 QRSD: 90 QT: 414 QTc: 437 [place]: P: 49 IL: 196 QRS: 69 T: 84 INTERPRETIVE STATEMENTS: Normal sinus rhythm ST elevation, consider anterolateral injury or acute infarct ACUTE [place] Abnormal ECG Compared to ECG 04/17/2020 13:10:45 ST (T wave) deviation now present Myocardial infarct finding now present Atrial abnormality no longer present Electronically Signed On 04-19-20 07:04:15 CDT by Duke Cid
--- NOTE | 2020-04-19 12:35 | CON ---
Reason For Admission And Consultation: Acute inferior DE. History Of Present Illness: The patient is a 64-year-old who has a past medical history of nephrolit hiasis, hypertension, and diabetes, came in with chest pain radiating to the back. No nausea, vomiti ng, diaphoresis. He was short of breath. Denied PND, orthopnea, pedal edema, palpitations, or synco pe. EKG showed ST elevation in V3, V5. The patient has already received heparin and continued to maravilla ve pain. There was a plan to take him to the emergency room acutely for an emergency heart catheteri zation with possible intervention. Past Medical History: As stated above. Allergies: HE IS ALLERGIC TO CODEINE. Review of Systems: Negative. Social History: Positive for tobacco. Family History: Positive for heart disease. Past Surgical History: Negative. Physical Examination: Vital Signs: When I saw him, his pressure was 140/67, pulse is 80, respiratory rate is 18, pulse ox is 100% O2 saturation on room air. HEENT: Negative. Neck: Supple with no bruit. Chest: Clear to auscultation and percussion. Cardiac: Revealed regular rhythm and rate. No murmurs, gallops, or rubs. Abdomen: Benign. Extremities: Revealed no clubbing, cyanosis, or edema. EKG showed acute anterior DE. Chest x-ray w as negative CT dissection was negative. Impression And Plan: 1.Acute what looks like anterior myocardial infarction. 2.Hypertension. 3.Diabetes. 4.Tobacco use. The patient will be taken to the tin can laborer emergently today for a catheterization and possible interve ntion. Heparin will be stopped linux consultant to the tin can laborer. Aspirin had been given. The patient is hem odynamically stable. Normal blood pressure, normal heart rate. He understand the risk and the benef its of the procedure. He agrees to proceed. SOCORRO/JALEN Voice ID: [id number] Report ID: [id number]
--- NOTE | 2020-04-19 12:53 | OP ---
Surgeon: Duke Cid MD Kick Plate Installer: Samantha Echols. The patient received aspirin, Angiomax and Plavix during the procedure. His heparin was stopped befo re the procedure. He will rest overnight. We will send him home tomorrow. He will he will be going home on aspirin, Plavix, Lipitor, and beta pam. Indications: Mr. Scanlon is a 64-year-old white male who was brought from emergency room emergently fo r an acute inferior LA. The patient is a 64-year-old, has had a history of hypertension, dyslipidemi a. No previous history of coronary artery disease. Has had some nephrolithiasis. [facility] into [facility] room with chest pain. EKG changes consistent with acute inferior LA. He was bolused with hep karissa and aspirin and was brought to the labview programmer emergently. Description Of Procedure: In the labview programmer, he was prepped and draped in the routine sterile fashion. He was still having chest pain with some ST elevation. He received Versed and fentanyl for sedatio n. A 6-Cuban sheath was introduced in the right common femoral artery successfully. 10 cc of xyloc sami was used to numb the right groin. Seldinger technique was used. A JR4 catheter and JL4 cathete r were used to respectively inject the left main and the right main. His RCA showed a mid to distal 99% stenosis with ESTELLA 2 flow. His LAD, left main were normal. Circumflex was normal. A myocardial bridge with minimal plaquing was noted in the mid to distal LAD. Intervention was decided upon. A JR4 6-Cuban guide with side hole was used to cannulate the right main. A [place] wire was used to cr oss the lesion successfully. A 2.5 x 16 Synergy stent was placed in the RCA distally with excellent result, 0% residual and ESTELLA-3 flow. No acute closure and no thrombus. The patient tolerated the pr ocedure very well. Blood Loss: 5 cc 5 mL. Anesthesia: Total conscious sedation was 60 minutes. NB/MODL Voice ID: [id number] Report ID: [id number]
--- NOTE | 2020-04-19 13:35 | PN ---
Date of Progress Note: 04/18/2020 Subjective: Mr. Scanlon was admitted with an acute anterior ID by EKG, but when the catheterization wa s done yesterday, he had a very large wraparound RCA with a 90% stenosis in the distal RCA. He under went a primary stent emergently of the RCA. He had initially a ESTELLA-2 flow. This improved to a ESTELLA -3 flow with 0% residual. No complication. No thrombus. No acute closure. The patient tolerated t he procedure well. He was observed overnight. Overnight, he has no more chest pain. He has normal telemetry with sinus rhythm. Physical Examination: Vital Signs: Stable. He was afebrile. His right groin site was intact. Chest: Clear. Cardiac: Normal. Extremities: Revealed good distal pulses. Impression And Plan: This is a patient with history of hypertension, diabetes, status post acute arleth cardial infarction secondary to stenosis of the right coronary artery status post primary stent of th e right coronary artery with excellent results. The patient should go home today on his home medicat ions plus Lipitor 80 mg daily and Plavix 75 mg daily. I will see him in the office in the next 2 jonna QUINTANILLA/JALEN Voice ID: [id number] Report ID: [id number]
== END 2020-04-18 11:35 | disposition home or self-care (01) | DRG 247 ==
LOC: ER 13:13 → ERHOLD 15:17
PROVIDERS: ADMIT Hospitalist; ATTEND Hospitalist
PROC: 027034Z Dilation of Coronary Artery, One Artery with Drug-eluting Intraluminal Device, Percutaneous Approach (ICD-10-PCS; principal; 2020-04-17)
PROC: 4A023N7 Measurement of Cardiac Sampling and Pressure, Left Heart, Percutaneous Approach (ICD-10-PCS; 2020-04-17)
PROC: B2111ZZ Fluoroscopy of Multiple Coronary Arteries using Low Osmolar Contrast (ICD-10-PCS; 2020-04-17)
DX: I21.09 ST elevation (STEMI) myocardial infarction involving other coronary artery of anterior wall (principal); E10.9 Type 1 diabetes mellitus without complications; I10 Essential (primary) hypertension; F17.210 Nicotine dependence, cigarettes, uncomplicated; Z88.5 Allergy status to narcotic agent; Z79.899 Other long term (current) drug therapy; Z79.82 Long term (current) use of aspirin; Z79.02 Long term (current) use of antithrombotics/antiplatelets; Z79.4 Long term (current) use of insulin; Z20.828 Contact with and (suspected) exposure to other viral communicable diseases
CPT/HCPCS: 36415; 71045; 71275; 74175; 76770; 80048; 80053; 80061; 80076; 82565; 82947; 83036; 83735; 83880; 84484; 85025; 85347; 85610; 92928; 93005; 93454; 96374; 96375; 99285; C1725; C1760; C1893; J0583; J1644; J1815; J2175; J2250; J2405; J2550; J3010; J3101; J7030; Q9967; U0002

== ENCOUNTER 2021-07-17 18:02 | Emergency (ER) | payer BC ==
--- OUTSIDE RECORDS SUMMARY | 2021-07-17 18:05 | XMS REPORT | Continuity of Care Document ---
:1955 Author Organization [facility] t Address [address] [place] [address] Care Team Providers Name Role Phone Unavailable Unavailable Unavailable Problems This patient has no known problems. Allergies, Adverse Reactions, Alerts Allergy Allergy Status Severity Reaction(s) Onset Inactive Treating Comm ents Source Name Type Date Date Clinician codeine Adverse Active rash [facility] Medications Ordered Filled Start Stop Current Ordering Indication Dosage Frequency Signature Comments Components Source Medication Medication Date Date Medication? Clinician (SIG) Name Name Lisinopril Lisinopril Yes Catie [address] [facility] [place] [facility] ent Clinics Novolin R Novolin R Yes Catie [address] [place] [facility]ics Novolin N Novolin N Yes Catie [address] [facility] [place] [facility] Meloxicam Meloxicam Yes Catie as [facility] [place] [facility] Diclofenac Diclofenac Yes Catie [address] [facility] Sodium Sodium [place] with food [facility] Immunizations Ordered Filled Immunization Date Status Comments Sourc e Immunization Name Name Flucelvax - single Flucelvax - single 2019-09-[address] [facility] - dose syringe dose syringe 00:00:00 [facility] Flucelvax - Flucelvax - 2018-08-[address] [facility] - multidose vial multidose vial 00:00:00 [facility]patient [facility] Procedures This patient has no known procedures. Encounters Start End Encounter Admission Attending Care Care Encounter Source Date/Time Date/Time Type Type Clinicians Facility Department ID 2021-05-24 2021-05-24 ambulatory [facility] [id number] [facility] 2021-05-23 2021-05-23 ambulatory [facility] [id number] [facility] 2021-03-08 2021-03-08 Out[facility] [id number] [facility] 2021-03-03 2021-03-03 Out[facility] [id number] [facility] 2021-03-01 2021[facility]03-01 Outpatient [facility] [id number] [facility] 2020-11-07 2020-11-07 Outpatient [facility] [id number] [facility] 2020-11-05 2020-11-05 Outpatient [facility] [id number] [facility] 2020-11-02 2020-11-02 Outpatient [facility] [id number] [facility] 2020-07-20 2020-07-20 Outpatient [facility] [id number] [facility] 2020-07-11 2020-07-11 Outpatient [facility] [id number] [facility] 2020-07-11 2020-07-11 Out[facility] [id number] [facility] 2020-05-17 2020-05-17 [facility] [id number] [facility] 2020-05-10 2020-05-10 [facility] [id number] [facility] 2020-05-03 2020-05-03 [facility] [id number] [facility] 2020-04-19 2020-04-19 [facility] [id number] [facility] 2020-04-18 2020-04-18 [facility] [id number] [facility] 2020-03-02 2020-03-02 [facility] [id number] [facility] 08[facility]00 08[facility]00:00 [facility] 2019-12-06 2019-12-06 [facility] [id number] [facility] 16[facility]09[facility]00 16:09[facility]00 [facility] 2019-11-25 2019-11-25 [facility] [id number] [address] 09:40[facility]00 09:40:00 t [facility] 2019-10-21 2019-10-21 [facility] [id number] 08:40:00 08:40:00 t [facility] 2019-09-02 2019-09-02 [facility] [id number] 09:20:00 09:20:00 t [facility] 2019-07-21 2019-07-21 [facility] [id number] 16:40:00 16:40:00 [facility] Medicine Outpati ent Clinics 2019-07-18 2019-07-18 [facility] [id number] 15:18:00 15:18:00 [facility] Medicine Outpati ent Clinics 2019-06-17 2019-06-17 [facility] [id number] 12:09:00 12:09:00 [facility] Medicine Outpati ent Clinics 2019-06-08 2019-06-08 [facility] [id number] 10:00:00 10:00:00 [facility] Medicine Outpati ent Clinics 2018-09-03 2018-09-03 [facility] [id number] [facility] 12[facility]10:00 12:10:00 [facility] Medicine Outpati ent Clinics 2018-08-18 2018-08-18 [facility] [id number] [facility] 15:30:00 15:30:00 [facility] Medicine Outpati ent Clinics Results This patient has no known results.
[2021-07-17 21:33] LABS: Protime INR 0.89
[2021-07-17 21:39] LABS: Absolute Lymphocytes (CBC) 2.3 K/uL (0.7-4.9); Hematocrit 46.1 % (39.6-49.0); Lymphocytes % 39.5 % (15.3-44.8)
[2021-07-17 21:48] LABS: ALT/SGPT 34 U/L (12-78); AST/SGOT 23 U/L (15-37); Albumin 3.8 g/dL (3.4-5.0); Alkaline Phosphatase 102 U/L (45-117); BUN Blood Urea Nitrogen 10 mg/dL (7-18); Bicarbonate 29 mmol/L (21-32); Bilirubin Direct 0.2 mg/dL (0-0.2); Bilirubin Total 0.5 mg/dL (0.2-1.0); Glucose Level 59 mg/dL (74-106); Lipase 56 U/L (73-393); Potassium 3.6 mmol/L (3.5-5.1); Sodium Level 141 mmol/L (136-145)
--- NOTE | 2021-07-17 22:01 | EDPHYS ---
Physician Documentation [facility] Name: Meir Scanlon Jr Age: 65 yrs Sex: Male : 1955 Arrival Date: 07/17/2021 Time: 18:12 Bed 23 Private MD: Catie Sheikh ED Physician Garfield Bernal HPI: 07/17 21:02 This 65 yrs old Male presents to ER via Ambulatory with complaints of Bloody Stools. sp3 21:02 65-year-old male with a history of diabetes, hypertension, kidney stones, myocardial sp3 infarction presents to the ED for chief complaint blood around his stools in the toilet with bowel movements x2 today. Patient initially activated EMS and after EMS got there told him that his vital signs were normal and the blood was minimal and he may drive himself therefore he drove himself here today. Patient denies any nausea, vomiting, diarrhea, abdominal pain, headache, neck pain, back pain, bleeding in other places including gums during brushing, nose, urine, or any easy bruising. Patient not on any blood thinners. Patient denies history of hemorrhoids or prior GI bleeds.. Historical: - Allergies: 18:45 Codeine; jl7 - Home Meds: 18:45 diclofenac sodium 75 mg Oral TbEC 1 tab 2 times per day [Active]; lisinopril 10 mg Oral jl7 tab 1 tab once daily [Active]; atorvastatin oral [Active]; clopidogrel 75 mg oral tab [Active]; Insulin: Novolin R 4 units Sub-Q [Active]; Insulin: Novolin N Sub-Q 16 unit [Active]; - PMHx: 18:45 Arthritis; Diabetes - IDDM; Hypertension; Kidney stones; Myocardial infarction; jl7 - Immunization history:: Client reports receiving the 2nd dose of the Covid vaccine, Moderna. - Social history:: Smoking status: Patient denies any tobacco usage or history of. ROS: 21:03 Constitutional: Negative for fever, chills, and weight loss, Eyes: Negative for injury, sp3 pain, redness, and discharge, ENT: Negative for injury, pain, and discharge, Neck: Negative for injury, pain, and swelling, Cardiovascular: Negative for chest pain, palpitations, and edema, Respiratory: Negative for shortness of breath, cough, wheezing, and pleuritic chest pain, Back: Negative for injury and pain, : Negative for injury, bleeding, discharge, and swelling, MS/Extremity: Negative for injury and deformity, Skin: Negative for injury, rash, and discoloration, Neuro: Negative for headache, weakness, numbness, tingling, and seizure, Psych: Negative for depression, anxiety, suicide ideation, homicidal ideation, and hallucinations, Allergy/Immunology: Negative for hives, rash, and allergies, Endocrine: Negative for neck swelling, polydipsia, polyuria, polyphagia, and marked weight changes. 21:03 All other systems are negative. Exam: 21:04 Constitutional: This is a well developed, well nourished patient who is awake, alert, sp3 and in no acute distress. Head/Face: Normocephalic, atraumatic. Eyes: Pupils equal round and reactive to light, extra-ocular motions intact. Lids and lashes normal. Conjunctiva and sclera are non-icteric and not injected. Cornea within normal limits. Periorbital areas with no swelling, redness, or edema. Neck: Trachea midline, no thyromegaly or masses palpated, and no cervical lymphadenopathy. Supple, full range of motion without nuchal rigidity, or vertebral point tenderness. No Meningismus. Chest/axilla: Normal chest wall appearance and motion. Nontender with no deformity. No lesions are appreciated. Cardiovascular: Regular rate and rhythm with a normal S1 and S2. No gallops, murmurs, or rubs. Normal PMI, no JVD. No pulse deficits. Respiratory: Lungs have equal breath sounds bilaterally, clear to auscultation and percussion. No rales, rhonchi or wheezes noted. No increased work of breathing, no retractions or nasal flaring. Abdomen/GI: Soft, non-tender, with normal bowel sounds. No distension or tympany. No guarding or rebound. No evidence of tenderness throughout. Back: No spinal tenderness. No costovertebral tenderness. Full range of motion. Skin: Warm, dry with normal turgor. Normal color with no rashes, no lesions, and no evidence of cellulitis. 21:04 : Patient has multiple external hemorrhoids several of which are bleeding and none of which are thrombosed. None of which are painful.. Vital Signs: 18:44 BP 146 / 72; Pulse 77; Resp 17; Temp 98.3; Pulse Ox 100% on R/A; Weight 70.76 kg; jl7 Height 5 ft. 9 in. (175.26 cm); Pain 0/10; 20:50 BP 133 / 62 LA Supine (auto/reg); Pulse 55 MON; Resp 16 S; Temp 98.4(O); Pulse Ox 100% tk1 on R/A; 21:50 BP 124 / 64 LA Supine (auto/reg); Pulse 61; Resp 16 S; Pulse Ox 100% on R/A; tk1 18:44 Body Mass Index 23.04 (70.76 kg, 175.26 cm) jl7 Donavan Coma Score: 20:50 Eye Response: spontaneous(4). Verbal Response: oriented(5). Motor Response: obeys tk1 commands(6). Total: 15. MDM: 20:45 Patient medically screened. sp3 21:05 Data reviewed: vital signs, nurses notes. ED course: Given physical exam and normal sp3 vital signs, patient's symptoms are likely from bleeding hemorrhoids and not from an internal GI bleed itself. We will check routine laboratory values and discharge patient home to follow-up with PCP in general surgery to assess for any potential intervention from that standpoint. I have discussed at length with patient proper diet, fiber intake, and stool softeners to help with this. Have also counseled him on points to return to the ED in the event of an actual internal GI bleed occurs. Patient acknowledged understanding of these items and was grateful for the education. Blood work is negative we will discharge patient home as outlined above.. 21:59 Data reviewed: nurses notes. ED course: Laboratory values are completely normal sp3 including PT/INR and CBC. We will discharge patient home at this time. 07/17 20:35 Order name: Basic Metabolic Panel; Complete Time: 21:59 sp3 07/17 20:35 Order name: CBC with Diff; Complete Time: 21:59 sp3 07/17 20:35 Order name: Hepatic Function; Complete Time: 21:59 sp3 07/17 20:35 Order name: Lipase; Complete Time: 21:59 sp3 07/17 20:35 Order name: IV Saline Lock; Complete Time: 22:03 sp3 07/17 20:35 Order name: PT-INR; Complete Time: 21:59 sp3 07/17 20:35 Order name: Labs collected and sent; Complete Time: 22:03 sp3 Administered Medications: No medications were administered Disposition Summary: 07/17/21 22:00 Discharge Ordered Location: Home sp3 Condition: Stable sp3 Diagnosis - Other hemorrhoids sp3 Followup: sp3 - With: Private Physician - When: Upon discharge from the Emergency Department - Reason: Continuance of care Discharge Instructions: - Discharge Summary Sheet sp3 - High-Fiber Diet sp3 - Hemorrhoids sp3 Forms: - Medication Reconciliation Form sp3 - Thank You Letter sp3 - Antibiotic Education sp3 - Prescription Opioid Use sp3 Signatures: Dispatcher [employer] Paul Bowens RN RN jl7 Garfield Bernal MD MD sp3
--- NOTE | 2021-07-17 22:01 | ER ---
Nurse's Notes [facility] Name: Meir Scanlon Jr Age: 65 yrs Sex: Male : 1955 Arrival Date: 07/17/2021 Time: 18:12 Bed 23 Private MD: Catie Sheikh Diagnosis: Other hemorrhoids Presentation: 07/17 18:44 Chief complaint: Patient states: Bright red blood in stool twice today, denies pain, jl7 denies N/V/D. Coronavirus screen: At this time, the client does not indicate any symptoms associated with coronavirus-19. Ebola Screen: No symptoms or risks identified at this time. Initial Sepsis Screen: Does the patient meet any 2 criteria? No. Patient's initial sepsis screen is negative. Does the patient have a suspected source of infection? No. Patient's initial sepsis screen is negative. Risk Assessment: Do you want to hurt yourself or someone else? Patient reports no desire to harm self or others. Onset of symptoms was July 17, 2021. 18:44 Method Of Arrival: Ambulatory 7 18:44 Acuity: REJI 3 jl7 Triage Assessment: 18:45 General: Appears in no apparent distress. uncomfortable, Behavior is calm, cooperative, jl7 appropriate for age. Pain: Denies pain. GI: Reports bloody stool. Historical: - Allergies: 18:45 Codeine; jl7 - Home Meds: 18:45 diclofenac sodium 75 mg Oral TbEC 1 tab 2 times per day [Active]; lisinopril 10 mg Oral jl7 tab 1 tab once daily [Active]; atorvastatin oral [Active]; clopidogrel 75 mg oral tab [Active]; Insulin: Novolin R 4 units Sub-Q [Active]; Insulin: Novolin N Sub-Q 16 unit [Active]; - PMHx: 18:45 Arthritis; Diabetes - IDDM; Hypertension; Kidney stones; Myocardial infarction; jl7 - Immunization history:: Client reports receiving the 2nd dose of the Covid vaccine, Moderna. - Social history:: Smoking status: Patient denies any tobacco usage or history of. Screenin:26 Abuse screen:. Nutritional screening: No deficits noted. Tuberculosis screening: No tk1 symptoms or risk factors identified. Never had TB. Possible symptoms: None Risk factors: None Intervention for positive screen:. Fall Risk None identified. No fall in past 12 months (0 pts). No secondary diagnosis (0 pts). IV access (20 points). Ambulatory Aid- None/Bed Rest/Nurse Assist (0 pts). Gait- Normal/Bed Rest/Wheelchair (0 pts) Mental Status- Oriented to own ability (0 pts). Total Vang Fall Scale indicates No Risk (0-24 pts). Assessment: 20:50 General: Appears in no apparent distress. comfortable, unkempt, well nourished. GI: tk1 Abdomen is flat, non-distended, Pt is actively vomiting Rectal exam: Deferred to physician Stools are reported to be normal. Last BM was July 17, 2021. Last meal was July 17, 2021. at 17:00. 20:50 Pain: Denies pain. tk1 21:51 Reassessment: No changes from previously documented assessment. Patient and/or family tk1 updated on plan of care and expected duration. Pain level reassessed. Cardiovascular: No deficits noted. Respiratory: No deficits noted. Vital Signs: 18:44 BP 146 / 72; Pulse 77; Resp 17; Temp 98.3; Pulse Ox 100% on R/A; Weight 70.76 kg; jl7 Height 5 ft. 9 in. (175.26 cm); Pain 0/10; 20:50 BP 133 / 62 LA Supine (auto/reg); Pulse 55 MON; Resp 16 S; Temp 98.4(O); Pulse Ox 100% tk1 on R/A; 21:50 BP 124 / 64 LA Supine (auto/reg); Pulse 61; Resp 16 S; Pulse Ox 100% on R/A; tk1 18:44 Body Mass Index 23.04 (70.76 kg, 175.26 cm) jl7 Donavan Coma Score: 20:50 Eye Response: spontaneous(4). Verbal Response: oriented(5). Motor Response: obeys tk1 commands(6). Total: 15. ED Course: 18:12 Patient arrived in ED. am2 18:13 Catie Sheikh FNP-C is Private Physician. am2 18:45 Triage completed. jl7 18:45 Arm band placed on right wrist. Patient placed in waiting room, Patient notified of jl7 wait time. 20:00 Pulse ox on. NIBP on. tk1 20:35 Garfield Bernal MD is Attending Physician. sp3 20:55 Gertrudis Feliz is Primary Nurse. tk1 21:10 Inserted saline lock: 20 gauge in right forearm, using aseptic technique. tk1 21:12 Basic Metabolic Panel Sent. tk1 21:12 CBC with Diff Sent. tk1 21:12 Hepatic Function Sent. tk1 21:12 Lipase Sent. tk1 21:21 No provider procedures requiring assistance completed. tk1 22:09 IV discontinued, intact, bleeding controlled, No redness/swelling at site. Pressure tk1 dressing applied. Administered Medications: No medications were administered Outcome: 22:00 Discharge ordered by . sp3 22:07 Discharged to home ambulatory. tk1 22:07 Condition: stable 22:07 Discharge instructions given to patient, family, Instructed on discharge instructions, follow up and referral plans. Demonstrated understanding of instructions, follow-up care. 22:10 Patient left the ED. tk1 Signatures: Paul Jim RN RN jl7 Donna Mack 2 Garfield Bernal MD MD sp3 Gertrudis Feliz tk1
[2021-07-17 22:54] VITALS: O2SAT 100
[2021-07-17 22:55] VITALS: TEMP 98.4
[2021-07-17 22:57] VITALS: BP 124/64
== END 2021-07-17 22:10 | disposition home or self-care (01) ==
LOC: ER 18:02
DX: K64.8 Other hemorrhoids (principal); I10 Essential (primary) hypertension; E11.9 Type 2 diabetes mellitus without complications; I25.2 Old myocardial infarction; Z79.4 Long term (current) use of insulin; Z88.5 Allergy status to narcotic agent
CPT/HCPCS: 36415; 80048; 80076; 83690; 85025; 85610; 99283

== ENCOUNTER 2023-10-05 10:52 | Day surgery (SDC) | payer OTHER ==
[2023-10-02 12:28] LABS: Absolute Basophils 0.1 K/uL (0-0.5); Absolute Eosinophils 0.3 K/uL (0-0.5); Absolute Lymphocytes (CBC) 1.4 K/uL (0.7-4.9); Absolute Monocytes 0.4 K/uL (0.1-1.3); Absolute Neutrophil 3.5 K/uL (1.8-8.0); Basophils % 1.2 % (0-1.3); Eosinophils % 4.5 % (0-4.4); Hematocrit 41.9 % (39.6-49.0); Hemoglobin 14.4 g/dL (13.6-17.9); MCH 31.5 pg (27.0-35.0); MCHC 34.2 g/dL (32.0-36.0); MCV 92.1 fL (80-100); MPV 9.4 fL (7.6-11.3); Monocytes % 7.2 % (3.3-12.3); Neutrophils % 62.1 % (41.7-73.7); Platelets 185 thou/uL (152-406); RBC Red Blood Cell Count 4.55 M/uL (4.33-5.43); Red Cell Distribution Width 13.1 % (12.1-15.2)
[2023-10-02 12:35] LABS: PT Prothrombin Time 11.9 SECONDS (9.5-12.5); PTT, Activated Partial Thromb 32.2 SECONDS (24.3-36.9); Protime INR 1.08
[2023-10-02 12:37] LABS: Anion Gap 7.3 mEq/L (5.0-15.0); Potassium 4.3 mEq/L (3.5-5.1)
[2023-10-05] MEDS: NA CHLORIDE 0.9% 1,000 ML ONE ×2 (11:20→14:00)
[2023-10-05] MEDS ORDERED: LIDOCAINE 1% MPF 5 ML VIAL ONE (11:23)
[2023-10-05] MEDS ORDERED: propofoL 200 MG/20 ML VIAL IV ONE ×4 (11:23→14:09)
[2023-10-05] MEDS: INSULIN REGULAR (HUMAN) 100 UNIT/ML ONE (11:36)
[2023-10-05] MEDS ORDERED: LIDOCAINE 1% MPF 30 ML VIAL ONE (13:31)
[2023-10-05 15:54] LABS: Absolute Eosinophils 0.2 K/uL (0-0.5); Absolute Lymphocytes (CBC) 0.9 K/uL (0.7-4.9); Absolute Monocytes 0.3 K/uL (0.1-1.3); Absolute Neutrophil 2.8 K/uL (1.8-8.0); Eosinophils % 4.2 % (0-4.4); Hematocrit 39.1 % (39.6-49.0); Hemoglobin 13.3 g/dL (13.6-17.9); MCH 31.5 pg (27.0-35.0); MCHC 34.1 g/dL (32.0-36.0); MCV 92.4 fL (80-100); MPV 9.3 fL (7.6-11.3); Monocytes % 6.5 % (3.3-12.3); Neutrophils % 67.3 % (41.7-73.7); Nucleated Red Blood Cells % 0.1 % (0-0); Platelets 156 thou/uL (152-406); RBC Red Blood Cell Count 4.23 M/uL (4.33-5.43); Red Cell Distribution Width 12.9 % (12.1-15.2)
[2023-10-05 15:59] VITALS: BP 112/50; TEMP 97.2; O2SAT 97
[2023-10-05 16:03] LABS: Albumin 3.2 g/dL (3.4-5.0); Albumin/Globulin Ratio 1.3 (1.1-1.8); Anion Gap 6.7 mEq/L (5.0-15.0); Bilirubin Total 0.6 mg/dL (0.2-1.0); Globulin 2.4 g/dL (2.3-3.5); Potassium 4.7 mEq/L (3.5-5.1); Protein, Total 5.6 g/dL (6.4-8.2)
== END 2023-10-05 15:34 | disposition home or self-care (01) ==
LOC: OR 10:52
PROVIDERS: ATTEND Surgery
PROC: 0DBL8ZX Excision of Transverse Colon, Via Natural or Artificial Opening Endoscopic, Diagnostic (ICD-10-PCS; 2023-10-05)
PROC: 0DBN8ZX Excision of Sigmoid Colon, Via Natural or Artificial Opening Endoscopic, Diagnostic (ICD-10-PCS; 2023-10-05)
PROC: 0DBP8ZX Excision of Rectum, Via Natural or Artificial Opening Endoscopic, Diagnostic (ICD-10-PCS; 2023-10-05)
PROC: 0DBM8ZX Excision of Descending Colon, Via Natural or Artificial Opening Endoscopic, Diagnostic (ICD-10-PCS; 2023-10-05)
PROC: 0DBH8ZX Excision of Cecum, Via Natural or Artificial Opening Endoscopic, Diagnostic (ICD-10-PCS; principal; 2023-10-05 12:30)
DX: Z12.11 Encounter for screening for malignant neoplasm of colon (principal); C20 Malignant neoplasm of rectum; K64.8 Other hemorrhoids; D12.7 Benign neoplasm of rectosigmoid junction; D12.0 Benign neoplasm of cecum; D12.4 Benign neoplasm of descending colon; D12.5 Benign neoplasm of sigmoid colon; D12.3 Benign neoplasm of transverse colon; M54.40 Lumbago with sciatica, unspecified side
CPT/HCPCS: 45385; 45380; 85025 ×2; 80048; 36415 ×2; 85610; 82947 ×2; 88305; 85730; 82378; 80053; 82105; J1815; J2704 ×2; J2001; J7030 ×2

== ENCOUNTER 2025-02-12 16:52 | Inpatient (IN) | payer OTHER ==
[2025-02-12] MEDS ORDERED: NA CHLORIDE 0.9% 1,000 ML ONE ×3 (17:54→22:21)
[2025-02-12] MEDS ORDERED: METOCLOPRAMIDE 10 MG/2mL INJ ONE (17:54)
[2025-02-12 18:01] LABS: Absolute Lymphocytes (CBC) 0.9 K/uL (0.7-4.9); Hematocrit 37.1 % (39.6-49.0); Hemoglobin 12.0 g/dL (13.6-17.9); MCH 31.8 pg (27.0-35.0); MCHC 32.3 g/dL (32.0-36.0); MCV 98.4 fL (80-100); MPV 9.7 fL (7.6-11.3); Nucleated RBC Absolute Count 0.0 (0-0); Nucleated Red Blood Cells % 0.0 % (0-0); RBC Red Blood Cell Count 3.77 M/uL (4.33-5.43); White Blood Count 10.80 thou/uL (4.3-10.9)
[2025-02-12 18:16] LABS: PH, Venous Blood Gas 7.22 (7.32-7.42)
[2025-02-12 18:17] LABS: PCO2, Venous Blood Gas 26 mmHg (41-51); PO2, Venous Blood Gas 159 mmHg (25-40)
[2025-02-12 18:18] LABS: Base Excess, VBG -17.1 mmol/L (-2.0-3.0); O2 Saturation, VBG 99.1 % (40.0-70.0)
[2025-02-12 18:20] LABS: HCO3, Venous Blood Gas 10.6 mmol/L (21.0-29.0)
[2025-02-12 18:27] LABS: ALT/SGPT 67.0 U/L (16-61); AST/SGOT 127.0 U/L (15-37); Albumin 3.6 g/dL (3.4-5.0); Albumin/Globulin Ratio 1.4 (1.1-1.8); Alkaline Phosphatase 139.0 U/L (45-117); Anion Gap 31.9 mEq/L (5.0-15.0); BUN Blood Urea Nitrogen 48.0 mg/dL (7-18); Globulin 2.6 g/dL (2.3-3.5); Lipase 18.0 U/L (13-75); Magnesium 2.0 mg/dL (1.6-2.4); Potassium 5.9 mEq/L (3.5-5.1)
[2025-02-12 18:35] LABS: Glucose Level 989.0 mg/dL (74-106)
[2025-02-12 18:36] LABS: Troponin High Sensitivity 7349.3 pg/mL (<58.9)
[2025-02-12] MEDS ORDERED: INSULIN REGULAR (HUMAN) 100 UNIT/ML ONE ×2 (18:56→18:58)
[2025-02-12] MEDS ORDERED: NA CHLORIDE 0.9% 100 ML ONE ×2 (18:58→22:21)
[2025-02-12] MEDS ORDERED: ASPIRIN 325 MG TAB ONE (18:59)
--- NOTE | 2025-02-12 19:12 | EDPHYS ---
Physician Documentation [facility] Name: Meir Scanlon Jr Age: 69 yrs Sex: Male : 1955 Arrival Date: 02/12/2025 Time: 16:52 Bed 13 Private MD: ED Physician Mouna Contreras HPI: 02/12 17:37 This 69 yrs old Male presents to ER via EMS with complaints of Shortness Of sw6 Breath. 17:37 The patient has experienced a previous episode, 2 to 3 weeks ago. The patient presents sw6 from home with EMS for evaluation for high blood sugar. He does have history of type 1 diabetes and is prescribed insulin. His son found him this evening with a change in his mentation. His blood sugar was checked and was noted to be greater than 600. Therefore he was given IV fluids and brought to the ER for evaluation. He also has a history of colon cancer with the resection of a portion of his colon in November of this year. He also has right-sided chest wall port for chemotherapy but is unable to state when he last had chemotherapy. No reports of fever. He does complain of nausea and was given Zofran en route by EMS and reports it has improved. No vomiting noted. No diarrhea. No sick contacts. No cough or URI symptoms. Here for evaluation.. Historical: - Allergies: 17:36 Codeine; me1 - PMHx: 17:36 Arthritis; Diabetes - IDDM; Hypertension; Kidney stones; Myocardial infarction; LARS me1 syndrome (Unknown); - Immunization history:: Adult Immunizations unknown. - Infectious Disease History:: Denies. - Social history:: Smoking status: unknown. - History obtained from: EMS. ROS: 17:37 Constitutional: Negative for fever, chills, and weight loss, Cardiovascular: Negative sw6 for chest pain, palpitations, and edema, Respiratory: Negative for shortness of breath, cough, wheezing, and pleuritic chest pain, 17:37 Abdomen/GI: Positive for nausea, Negative for vomiting, 17:37 All other systems are negative, Exam: 17:37 Cardiovascular: Regular rate and rhythm with a normal S1 and S2. No gallops, murmurs, sw6 or rubs. Normal PMI, no JVD. No pulse deficits. Respiratory: Lungs have equal breath sounds bilaterally, clear to auscultation and percussion. No rales, rhonchi or wheezes noted. No increased work of breathing, no retractions or nasal flaring. 17:37 Head/Face: Normocephalic, atraumatic. Neck: Trachea midline, no thyromegaly or masses palpated, and no cervical lymphadenopathy. Supple, full range of motion without nuchal rigidity, or vertebral point tenderness. No Meningismus. Back: No spinal tenderness. No costovertebral tenderness. Full range of motion. 17:37 Constitutional: The patient appears alert, awake, comfortable, non-diaphoretic, non-toxic, 17:37 ENT: Mouth: Dry mucous membranes, 17:37 Chest/axilla: Right upper chest wall port site is clean, dry and intact.. 17:37 Abdomen/GI: Inspection: abdomen appears normal, Bowel sounds: normal, in all quadrants, Palpation: soft, mild abdominal tenderness, in the right upper quadrant and left upper quadrant, rebound tenderness, is not appreciated, voluntary guarding, is not appreciated, 17:37 Neuro: Orientation: The patient is orientated to person and sometimes place., 17:53 ECG was reviewed by the Attending Physician. Vital Signs: 17:31 BP 113 / 46; Pulse 81; Resp 18; Temp 98.3; Pulse Ox 98% ; Weight 71 kg; Height 5 ft. 9 me1 in. ; 19:48 BP 112 / 54; Pulse 84; Resp 17; Temp 97.5; Pulse Ox 98% on R/A; Pain 0/10; kj2 20:00 BP 120 / 52; Pulse 85; Resp 16; Pulse Ox 99% ; me1 17:31 Body Mass Index 23.11 (71.00 kg, 175.26 cm) me1 19:48 Pain Scale: Adult kj2 Donavan Coma Score: 19:48 Eye Response: spontaneous(4). Motor Response: obeys commands(6). Verbal Response: kj2 confused(4). Total: 14. MDM: 17:30 Medical Screening Exam initiated 17:37 Differential diagnosis: Hyperglycemia, DKA, HONC, bowel obstruction, adhesions, sw6 intra-abdominal infection. Data reviewed: vital signs, nurses notes, EMS record. 18:47 Data reviewed: lab test result(s), cardiac enzymes, electrolytes, hepatic panel, VBG, sw EKG. ED course: The patient is doing well in the ER. His EKG shows a normal sinus rhythm with a rate of 76. His laboratory studies show the patient is in DKA with a blood sugar that is elevated at 989 as well as a pH of 7.22 and a bicarb of 10.6. He also has an elevated troponin of 7349.3 as well as an PIERCE with a creatinine of 1.85. The patient was given oral aspirin here in the ER. He was also given an IV dose of insulin followed by an insulin drip. He does require admission to the ICU for continued management.. 02/12 17:32 Order name: CBC with Diff [facility] 02/12 18:20 Interpretation: Within normal limits. [facility] 02/12 17:32 Order name: CMP; Complete Time: 18:43 [facility] 02/12 18:45 Interpretation: Abnormal: GLUC 989; CO2 12; CRE 1.85; BILIT 1.3; Pierce, sw6 HYPERBILIRUBINEMIA, Hyperglycemia, DKA. 02/12 17:32 Order name: Lipase; Complete Time: 18:43 [facility] 02/12 17:32 Order name: Magnesium; Complete Time: 18:43 [facility] 02/12 17:32 Order name: Troponin High Sensitivity; Complete Time: 18:43 [facility] 02/12 18:45 Interpretation: Abnormal: Troponin HS 7349.3; Elevated troponin. [facility] 02/12 17:32 Order name: VBG; Complete Time: 18:43 [facility] 02/12 18:45 Interpretation: Abnormal: PH, VBG 7.22; HCO3, VBG 10.6. [facility] 02/12 17:32 Order name: UA W/ Microscopic [facility] 02/12 19:28 Order name: CBC Smear Scan [facility] 02/12 20:15 Order name: Glucose 2 02/12 20:25 Order name: Glucose, Ancillary Testing [facility] 02/12 21:14 Order name: Hemoglobin A1c [facility] 02/12 21:14 Order name: Liver (Hepatic) Function [facility] 02/12 21:14 Order name: Thyroid Stimulating Hormone [facility] 02/12 21:14 Order name: CBC with Automated Diff [facility] 02/12 21:14 Order name: CBC with Automated Diff [facility] 02/12 21:14 Order name: Comprehensive Metabolic Panel [facility] 02/12 21:14 Order name: Comprehensive Metabolic Panel [facility] 02/12 21:14 Order name: Lipid Profile [facility] 02/12 21:14 Order name: Lipid Profile [facility] 02/12 21:14 Order name: Troponin High Sensitivity [facility] 02/12 21:14 Order name: Troponin High Sensitivity [facility] 02/12 21:14 Order name: Troponin High Sensitivity [facility] 02/12 21:14 Order name: Troponin High Sensitivity [facility] 02/12 21:23 Order name: Glucose kd4 02/12 21:32 Order name: Glucose, Ancillary Testing [facility] 02/13 01:29 Order name: Basic Metabolic Panel [facility] 02/13 01:33 Order name: Protime (+INR) [facility] 02/13 01:42 Order name: PTT, Activated Partial Thromb [facility] 02/13 02:03 Order name: Glucose, Ancillary Testing [facility] 02/13 03:15 Order name: Glucose, Ancillary Testing [facility] 02/13 04:11 Order name: Glucose, Ancillary Testing [facility] 02/13 05:28 Order name: Glucose, Ancillary Testing [facility] 02/13 06:36 Order name: Ptt, Activated vc1 02/13 06:43 Order name: Glucose, Ancillary Testing [facility] 02/13 07:28 Order name: Glucose, Ancillary Testing [facility] 02/13 07:39 Order name: PTT, Activated Partial Thromb [facility] 02/13 08:40 Order name: Glucose, Ancillary Testing [facility] 02/12 18:47 Order name: Abdomen [facility] 02/12 21:14 Order name: Echo with Doppler [facility] 02/12 17:32 Order name: EKG; Complete Time: 17:33 sw6 02/12 21:14 Order name: CONS Physician Consult [facility] 02/12 21:14 Order name: CONS Physician Consult [facility] 02/12 17:32 Order name: IV Saline Lock; Complete Time: 17:53 sw6 02/12 17:32 Order name: Labs collected and sent; Complete Time: 17:53 sw6 EC:53 Rate is 76 beats/min. Rhythm is regular. QRS [place] is Normal. VA interval is normal. QRS sw6 interval is normal. QT interval is normal. No Q waves. T waves are Normal. No ST changes noted. Clinical impression: 1st degree heart block. Administered Medications: 17:58 Drug: NS 0.9% IV 1000 ml IV at 1 bolus Per protocol; to be given as a bolus over 60 me1 minutes Route: IV; Rate: 1 bolus; Site: left forearm; 20:09 Follow up: IV Status: Completed infusion kj2 17:58 Drug: metoCLOPramide IVP 10 mg IVP once; over 1 to 2 minutes Route: IVP; Site: left me1 forearm; 20:08 Follow up: Response: No adverse reaction kj2 19:16 Drug: Insulin Drip - (Insulin Regular Human IVP 100 units, NS 0.9% IV 100 ml) IV at cf3 calculated rate continuous; Standard concentration 1unit/ml; Dose for DKA is 0.1 units/kg/hr {Co-Signature: kj2 (Alma Vides RN).} Route: IV; Rate: calculated rate; Site: left forearm; 20:50 Follow up: Rate change 7.1 bolus kd4 20:53 Follow up: Rate change 14.2 calculated rate kd4 19:17 Drug: Insulin Regular Human IVP 10 units IVP once {Co-Signature: kj2 (Alma Vides 3 RN).} Route: IVP; Site: left forearm; 20:08 Follow up: Response: No adverse reaction kj2 19:17 Drug: Aspirin PO 325 mg PO once Route: PO; cf3 20:08 Follow up: Response: No adverse reaction kj2 19:48 Drug: NS 0.9% IV 1000 ml IV at 1000 ml once; to be given as a bolus over 60 minutes kj2 Route: IV; Rate: 1000 ml; Site: right forearm; Disposition Summary: 02/12/25 19:11 Hospitalization Ordered Notes: Hospitalization Status: Inpatient Admission 6 Provider: Eddi Shetty [facility] Condition: Guarded [facility] Problem: new sw6 Symptoms: are unchanged sw6 Bed/Room Type: Standard [facility] Location: Intensive Care Unit(02/13/25 07:22) bd Room Assignment: 2-(02/13/25 07:22) bd Diagnosis - Subsequent non-ST elevation (NSTEMI) myocardial infarction sw6 - Acute kidney failure, unspecified sw6 - Type 1 diabetes mellitus with ketoacidosis sw6 Forms: - Medication Reconciliation Form sw6 - SBAR form sw6 - Leadership Thank You Letter [facility] Signatures: Dispatcher [employer] Marissa Steele Cindy, RN Nadja Gonzalez RN RN me1 Mouna Contreras MD MD sw6 Alma Vides, ERICK RN kj2 Sid Maza RN RN cf3 Sharona Hawthorne RN kd4 Alma Vides RN kj2 Corrections: (The following items were deleted from the chart) 18:45 18:44 GLUC 989; CO2 12; CRE 1.85; BILIT 1.3; Pierce, HYPERBILIRUBINEMIA, Hyperglycemia, sw6 DKA. sw6 18:47 17:32 Abdomen Pelvis W Con+CT.RAD.BRZ ordered. EDMS EDMS 18:52 18:47 ED course: The patient is doing well in the ER. His EKG shows a normal sinus sw6 rhythm with a rate of 76. His laboratory studies show the patient is in DKA with a blood sugar that is elevated as well as a pH of 7.22 and a bicarb of 10.6. He also has an elevated troponin of seven 349.3. The patient was given oral aspirin here in the ER. He was also given an IV dose of insulin followed by an insulin drip. He does require admission to the ICU for continued management.. sw6 20:25 19:11 Intensive Care Unit sw6 cg 20:25 19:11 [facility] cg 02/13 07:22 02/12 20:25 [facility] ER HOLD cg bd 02/13 07:22 02/12 20:25 ERHOLD- cg bd
--- NOTE | 2025-02-12 19:12 | ER ---
Nurse's Notes [facility] Name: Meir Scanlon Jr Age: 69 yrs Sex: Male : 1955 Arrival Date: 02/12/2025 Time: 16:52 Bed 13 Private MD: Diagnosis: Subsequent non-ST elevation (NSTEMI) myocardial infarction;Acute kidney failure, unspecified;Type 1 diabetes mellitus with ketoacidosis Presentation: 02/12 17:31 Chief complaint: EMS states: toned out for altered mental status. Son found patient me1 altered this evening. BGL >600. 20g LFA EMS administered NS 700ml, Zofran 4 mg. A\T\O x2-3. Coronavirus screen: Vaccine status: Patient reports receiving the 2nd dose of the covid vaccine. Ebola Screen: No symptoms or risks identified at this time. Initial Sepsis Screen: Does the patient meet any 2 criteria? No. Patient's initial sepsis screen is negative. Does the patient have a suspected source of infection? No. Patient's initial sepsis screen is negative. Risk Assessment: Do you want to hurt yourself or someone else? Patient reports no desire to harm self or others. Onset of symptoms was February 12, 2025 at 16:00. 17:31 Method Of Arrival: EMS[place] [facility] [place] Acuity: REJI 3 me1 Triage Assessment: 17:36 General: Appears in no apparent distress. Behavior is calm, cooperative, appropriate me1 for age, drowsy. Pain: Denies pain. EENT: No signs and/or symptoms were reported regarding the EENT system. Neuro: Level of Consciousness is awake, alert, obeys commands, confused, lethargic, Oriented to person. Neuro: Oriented to situation. Cardiovascular: Patient's skin is warm and dry. Respiratory: Airway is patent Respiratory effort is even, unlabored, Respiratory pattern is regular, symmetrical. GI: No signs and/or symptoms were reported involving the gastrointestinal system. : No signs and/or symptoms were reported regarding the genitourinary system. Derm: Skin is intact, is healthy with good turgor, Skin is pink, warm \T\ dry. Musculoskeletal: Circulation, motion, and sensation intact. Range of motion: intact in all extremities. Historical: - Allergies: 17:36 Codeine; me1 - PMHx: 17:36 Arthritis; Diabetes - IDDM; Hypertension; Kidney stones; Myocardial infarction; LARS me1 syndrome (Unknown); - Immunization history:: Adult Immunizations unknown. - Infectious Disease History:: Denies. - Social history:: Smoking status: unknown. - History obtained from: EMS. Screenin:38 [facility] ED Fall Risk Assessment (Adult) History of falling in the last 3 months, me1 including since admission No falls in past 3 months (0 pts) Confusion or Disorientation Yes (5 pts) Intoxicated or Sedated No (0 pts) Impaired Gait No (0 pts) Mobility Assist Device Used No (0 pt) Altered Elimination No (0 pt) Score/Fall Risk Level 0 - 2 = Low Risk Maintained a safe environment, Provided non-skid footwear, Hourly rounding (assess needs \T\ fall precautionary measures) done. Abuse screen: Denies threats or abuse. Nutritional screening: No deficits noted. Tuberculosis screening: No symptoms or risk factors identified. Assessment: 17:38 General: See triage assessment. me1 Vital Signs: 17:31 BP 113 / 46; Pulse 81; Resp 18; Temp 98.3; Pulse Ox 98% ; Weight 71 kg; Height 5 ft. 9 me1 in. ; 19:48 BP 112 / 54; Pulse 84; Resp 17; Temp 97.5; Pulse Ox 98% on R/A; Pain 0/10; kj2 20:00 BP 120 / 52; Pulse 85; Resp 16; Pulse Ox 99% ; me1 17:31 Body Mass Index 23.11 (71.00 kg, 175.26 cm) me1 19:48 Pain Scale: Adult kj2 [place] Coma Score: 19:48 Eye Response: spontaneous(4). Motor Response: obeys commands(6). Verbal Response: kj2 confused(4). Total: 14. ED Course: 17:25 Patient arrived in ED. jl7 17:30 Mouna Contreras MD is Attending Physician. sw6 17:36 Triage completed. me1 17:36 Arm band placed on Patient placed in an exam room. me1 17:38 Patient has correct armband on for positive identification. Bed in low position. Call me1 light in reach. Side rails up X2. Provided Education on: POC. Verbalized understanding.. Client placed on continuous cardiac and pulse oximetry monitoring. NIBP monitoring applied. night monitor on. Pulse ox on. NIBP on. 17:38 No provider procedures requiring assistance completed. Maintain EMS IV. Dressing me1 intact. Good blood return noted. Site clean \T\ dry. Gauge \T\ site: 20f LFA. Flushed with 10 mL NS. 17:53 Nadja Cleary, RN is Primary Nurse. me1 17:53 CBC with Diff Sent. me1 17:53 CMP Sent. me1 17:53 Lipase Sent. me1 17:54 Magnesium Sent. me1 17:54 Troponin High Sensitivity Sent. me1 17:54 VBG Sent. me1 18:56 Abdomen In Process Unspecified. EDMS 19:09 Eddi Shetty MD is Hospitalizing Provider. sw6 20:02 Inserted saline lock: 20 gauge in right forearm, using aseptic technique. kj2 20:03 Urine collected: straight cath specimen, clear. kj2 20:03 Jimenes cath inserted, using sterile technique, 16 Fr., by mi, balloon inflated, to kj2 gravity drainage, urine specimen collected. Patient tolerated well. Administered Medications: 17:58 Drug: NS 0.9% IV 1000 ml IV at 1 bolus Per protocol; to be given as a bolus over 60 me1 minutes Route: IV; Rate: 1 bolus; Site: left forearm; 20:09 Follow up: IV Status: Completed infusion kj2 17:58 Drug: metoCLOPramide IVP 10 mg IVP once; over 1 to 2 minutes Route: IVP; Site: left me1 forearm; 20:08 Follow up: Response: No adverse reaction kj2 19:16 Drug: Insulin Drip - (Insulin Regular Human IVP 100 units, NS 0.9% IV 100 ml) IV at cf3 calculated rate continuous; Standard concentration 1unit/ml; Dose for DKA is 0.1 units/kg/hr {Co-Signature: kj2 (Alma Vides RN).} Route: IV; Rate: calculated rate; Site: left forearm; 20:50 Follow up: Rate change 7.1 bolus kd4 20:53 Follow up: Rate change 14.2 calculated rate kd4 19:17 Drug: Insulin Regular Human IVP 10 units IVP once {Co-Signature: kj2 (Alma Vides 3 RN).} Route: IVP; Site: left forearm; 20:08 Follow up: Response: No adverse reaction kj2 19:17 Drug: Aspirin PO 325 mg PO once Route: PO; cf3 20:08 Follow up: Response: No adverse reaction kj2 19:48 Drug: NS 0.9% IV 1000 ml IV at 1000 ml once; to be given as a bolus over 60 minutes kj2 Route: IV; Rate: 1000 ml; Site: right forearm; Medication: 17:38 VIS not applicable for this client. me1 Output: 20:05 Urine: 750ml (Jimenes); Total: 750ml. kj2 Outcome: 19:11 Decision to Hospitalize by Provider. sw6 02/13 08:55 Patient left the ED. ll1 Signatures: Dispatcher [employer] Paul Bowens RN RN jl7 Eli Varela RN RN ll1 Nadja Cleary RN RN me1 Sharona Hawthorne RN RN kd4 Mouna Contreras MD MD sw6 Alma Vides, ERICK RN kj2 Sid Maza RN RN cf3 Alma Vides RN kj2
--- NOTE | 2025-02-12 19:26 | RAD REPORT ---
EXAMINATION: Abdomen Pelvis Wo Contrast CLINICAL INDICATION: Male, 69 years old.ABD PAIN TECHNIQUE: CT abdomen and pelvis was performed, without IV contrast, as per department protocol. Axia l, sagittal and coronal reconstructions were obtained. One or more of the following dose reduction techniques were used: Automated exposure control, adjustment of the mA and/or kV according to the pat ient size, and/or iterative reconstruction. Unless otherwise specified, incidental findings do not require dedicated imaging follow-up. [id number]. IV CONTRAST: Not administered. COMPARISON: 10/09/2023 FINDINGS: The lack of intravenous contrast limits the sensitivity of this exam for evaluation of solid visceral organs, vascular structures, and retroperitoneum. Motion limited. LOWER CHEST: Bilateral pleural effusions and associated atelectasis.No significant pericardial effusi on. Moderate circumferential thickening of the distal esophagus which could reflect esophagitis. Endoscopy could better evaluate. Aortic valve and mitral annular calcifications. UPPER GI: No significant abnormality. LIVER: Hepatic steatosis, but otherwise unremarkable. GALLBLADDER/BILE DUCTS: Limited evaluation due to motion.? PANCREAS: Atrophy but no acute findings. SPLEEN: Unremarkable. ADRENALS: No adrenal masses. KIDNEYS AND URETERS: No hydronephrosis.Limited evaluation for renal lesions in the absence of IV cont rast. ABDOMINAL AORTA AND OTHER VESSELS: Moderate atherosclerotic changes without aortic aneurysm. PERITONEUM: Nonspecific free fluid. LYMPH NODES: No pathologic lymphadenopathy. ABDOMINAL WALL: Unremarkable SMALL BOWEL/COLON: Colorectal anastomosis. Wall thickening at the ascending colon.Gaseous distention of the transverse colon. No definite free air. There is some air closely adherent to the anterior abdominal wall though on coronal, it appears to be within the colon as there are haustral. URINARY BLADDER: Distended bladder. REPRODUCTIVE ORGANS: No pathologic process. MUSCULOSKELETAL: Multilevel degenerative changes in the spine. No acute fracture. ADDITIONAL FINDINGS: None. IMPRESSION: Motion limited. Question wall thickening at the cecum which could reflect colitis. Though the configuration of some of the gas within the anterior peritoneum has an appearance sometime s seen with pneumoperitoneum, haustra can be seen associated with the air suggesting colonic gas and not perforation. The degree of motion does limit evaluation, however. Other findings including moderately thickened distal esophagus that could indicate esophagitis, prono unced hepatic steatosis, and nonspecific fluid near the colorectal anastomosis. Depending on index of suspicion for an acute process, could consider repeat CT with IV contrast.
[2025-02-12 19:28] LABS: Blood Morphology Comment NOT SEEN (NOT SEEN); White Blood Cell Scan OK (OK)
[2025-02-12 19:51] LABS: Sqamous Epithelial <5 /HPF (None Seen); Urine Micro Reflex YN NO BILL MICROSCOPIC
--- NOTE | 2025-02-12 21:01 | P.HP ---
Certification for Inpatient With expected LOS: >2 Midnights Practitioner: I am a practitioner with admitting privileges, knowledge of patient current condition, hospital course, and medical plan of care. Services: Services provided to patient in accordance with Admission requirements found in Title 42 Section 412.3 of the Code of Federal Regulations Patient History Date of Service: 02/12/25 Reason for admission: Confusion and weakness History of Present Illness: 69-year-old male with past medical history of HTN, DM type II, CAD status post GA in 2019 [address] Cid, reportedly had another stent placed 1 year ago although he states it was done yet but no records, history of colorectal cancer status post colon resection and chemo radiation therapy, completed chemo [address] Monk, states he takes his regular insulin NPH and fast acting twice daily but unsure of the dose, states he has been compliant with his medication. He denies any nausea vomiting or diarrhea. He denies any recent constipation or abdominal pain. He was brought in by the son today after he was noted to be lethargic and confused. On arrival in the ED blood pressure was borderline at 106/46 afebrile nontachycardic. Laboratory workup showed glucose of 989 with anion gap of 20. CBC was unremarkable, LFT shows mildly evaded bilirubin, BMP shows serum sodium of 129, potassium 5.9, bicarb of 11 with creatinine of 1.85. He was also noted to have elevated troponin of 7325, EKG shows normal sinus rhythm with first-degree AV block. No ST segment changes. He was started on IV fluid, insulin boluses as well as insulin drip. He has also been started on heparin drip. His mentation is improving now. He denies any chest pain or palpitation. Patient denies any similar episode in the past. He is adamant in wanting to have his radiologist called regarding his admission. He is unable to provide the number of his radiologist and oncologist now. Allergies codeine Adverse Reaction (Verified 10/02/23 12:24) Nausea/Vomiting Home Medications: Insulin NPH Human Isophane [Novolin N] 16 units SQ BIDWM 04/17/20 Insulin Regular, Human [Novolin R] 4 units SQ BIDWM 04/17/20 lisinopriL [Zestril] 10 mg PO DAILY 04/17/20 Aspirin [Aspirin EC 81 MG] 81 mg PO DAILY 30 Days #30 tablet. 04/18/20 Atorvastatin Calcium [Lipitor] 1 tab PO BEDTIME 30 Days #30 tab 04/18/20 Clopidogrel Bisulfate [Plavix*] 1 tab PO DAILY 30 Days #30 tablet 04/18/20 - Past Medical/Surgical History Diabetic: Yes -: HTN -: Insulin dependent DM Type 1 -: kidney stones -: colonoscopy -: CAD/GA -: Colon cancer status post chemoradiation -: Colon resection - Family History Family History: Reviewed- Non-Contributory - Family History Father -: Heart disease Mother -: Cancer Notes: breast cancer Sister -: Cancer Notes: breast cancer - Social History Smoking Status: Never smoker Smoking therapy provided: No Patient receptive to therapy: No Alcohol use: Yes CD- Drugs: No Caffeine use: Yes Place of Residence: Home Review of Systems General: Weakness, Malaise Respiratory: Unremarkable Cardiovascular: Unremarkable Gastrointestinal: Nausea Genitourinary: Unremarkable Neurological: Confusion Physical Examination - Physical Exam General: Alert, Oriented x3, Other (Mildly drowsy but conversant and intermittently anxious) HEENT: Atraumatic, Normocephalic Neck: Supple, 2+ carotid pulse no bruit, JVD not distended Respiratory: Clear to auscultation bilaterally, Normal air movement (Chemo-Port over right chest wall) Cardiovascular: Normal pulses, Regular rate/rhythm, Normal S1 S2 Gastrointestinal: Normal bowel sounds, Soft and benign, Non-distended, Tenderness (Mild periumbilical and suprapubic area tenderness but no rebound or guarding) Musculoskeletal: No clubbing, No swelling Integumentary: No rashes, No breakdown Neurological: Normal speech, Normal strength at 5/5 x4 extr, Sensation intact, Cranial nerves 3-12 intact - Studies Laboratory Data (last 24 hrs) 02/12/25 02/12/25 02/12/25 20:15 17:47 17:47 WBC 10.80 Hgb 12.0 L Hct 37.1 L Plt Count 146 L Sodium 123 L Potassium 5.9 H BUN 48 H Creatinine 1.85 H Glucose 895 H* 989 H* Magnesium 2.0 Total Bilirubin 1.3 H AST 127 H ALT 67 H Alkaline Phosphatase 139 H Lipase 18 Assessment and Plan - Problems (Diagnosis) (1) DKA (diabetic ketoacidosis) Current Visit: Yes Status: Acute (2) Acute kidney injury Current Visit: Yes Status: Acute (3) Non-STEMI (non-ST elevated myocardial infarction) Current Visit: Yes Status: Acute (4) Hyperkalemia Current Visit: Yes Status: Acute - Plan Impression Acute DKA Cecal colitis Non-STEMI Acute kidney injury Hyperkalemia Pseudohyponatremia History of hypertension History of colon cancer s/p resection and chemoradiation Plan 1acute DKAcontinue insulin drip protocol Admit to ICU Gentle IV fluid with NS for now Keep n.p.o. until anion gap closes BMP every 4 Obtain hemoglobin A1c Cecal colitisCT noted Start empiric antibiotics with cefepime/Levaquin Follow abdominal pain/tenderness Keep n.p.o. for now Non-STEMImild elevated troponin of greater than 7300 Cardiology consult Start heparin drip Monitor PTT acute per protocol Add aspirin and Plavix Follow troponin trend Acute kidney injuryfollow with glucose control Follow potassium and sodium response to glucose control Continue gentle IV fluid Avoid nephrotoxin Renally dose all meds Nephrology consult in a.m. DVT prophylaxison heparin drip Advance directivefull code Total time spent in discussion with patient on evaluation greater than 75 minutes. - Advance Directives Does patient have a Living Will: No Does patient have a Durable POA for Healthcare: No
[2025-02-12] MEDS ORDERED: MORPHINE 2 MG/ML SYR IV PRN (21:05)
[2025-02-12] MEDS ORDERED: ALBUTEROL 2.5 MG/3 ML NEB SOL NEB PRN (21:05)
[2025-02-12] MEDS: CLOPIDOGREL 75 MG TABLET PO SCH (21:08)
[2025-02-12] MEDS ORDERED: HYDRALAZINE HCL 20 MG/ML VIAL IV PRN (21:08)
[2025-02-12] MEDS: NITROGLYCERIN 0.2 MG/HR (5 MG) PATCH TD SCH (21:09)
[2025-02-12] MEDS: CEFEPIME 1 GM in NA CHLORIDE 0.9% 100 ML IV SCH (21:09)
[2025-02-12] MEDS ORDERED: D50W 25 GM/50 ML SYRINGE IV PRN (21:11)
[2025-02-12] MEDS ORDERED: GLUCAGON 1 MG/VIAL IM PRN (21:11)
[2025-02-12] MEDS: NA CHLORIDE 0.9% 1,000 ML IV SCH (22:00)
[2025-02-12] MEDS: Levofloxacin500mg IV 500 MG/100 ML BAG IV SCH (22:00)
[2025-02-12 22:08] LABS: Thyroid Stimulating Hormone 2.95 uIU/mL (0.358-3.740); Troponin High Sensitivity 12102.2 pg/mL (<58.9)
[2025-02-12 22:17] LABS: Glucose Level 853.0 mg/dL (74-106)
[2025-02-12] MEDS ORDERED: CLOPIDOGREL 75 MG TABLET ONE (22:20)
[2025-02-12] MEDS ORDERED: CEFEPIME 1 GM/VIAL ONE (22:21)
[2025-02-12] MEDS ORDERED: HEPARIN/D5W 25,000 UNIT/500 ML BAG IV ONE (22:48)
[2025-02-12] MEDS ORDERED: Levofloxacin500mg IV 500 MG/100 ML BAG IV ONE (22:48)
[2025-02-13] MEDS ORDERED: HEPARIN 5000 UNIT/ML 1 ML VIAL ONE ×2 (00:50→09:09)
[2025-02-13] MEDS ORDERED: INSULIN REGULAR (HUMAN) 100 UNIT/ML ONE (01:06)
[2025-02-13] MEDS ORDERED: NA CHLORIDE 0.9% 100 ML ONE (01:07)
[2025-02-13 01:17] LABS: Anion Gap 18.0 mEq/L (5.0-15.0); BUN Blood Urea Nitrogen 46.0 mg/dL (7-18)
[2025-02-13 01:28] LABS: Glucose Level 577.0 mg/dL (74-106); Potassium 4.0 mEq/L (3.5-5.1)
[2025-02-13 01:33] LABS: PT Prothrombin Time 13.7 SECONDS (10-13.0); PTT, Activated Partial Thromb 25.1 SECONDS (27.2-37.4); Protime INR 1.22
[2025-02-13] MEDS: HEPARIN 5000 UNIT/ML 1 ML VIAL IV SCH (01:56)
[2025-02-13] MEDS: HEPARIN/D5W 25,000 UNIT/500 ML BAG IV SCH (01:57)
[2025-02-13] MEDS: INSULIN REGULAR, HUMAN 100 UNIT in NA CHLORIDE 0.9% 100 ML IV SCH (03:00)
[2025-02-13 03:22] VITALS: BMI 23.1
[2025-02-13] MEDS ORDERED: CLOPIDOGREL 75 MG TABLET ONE ×2 (06:25→09:14)
[2025-02-13] MEDS ORDERED: ASPIRIN 81 MG CHEWABLE TABLET ONE (06:26)
[2025-02-13 06:32] LABS: Absolute Lymphocytes (CBC) 0.7 K/uL (0.7-4.9); Hematocrit 28.6 % (39.6-49.0); Hemoglobin 10.2 g/dL (13.6-17.9); MCH 32.4 pg (27.0-35.0); MCHC 35.6 g/dL (32.0-36.0); MCV 91.1 fL (80-100); MPV 8.4 fL (7.6-11.3); Nucleated RBC Absolute Count 0.0 (0-0); Nucleated Red Blood Cells % 0.0 % (0-0); RBC Red Blood Cell Count 3.14 M/uL (4.33-5.43); White Blood Count 8.00 thou/uL (4.3-10.9)
[2025-02-13] MEDS: ASPIRIN EC 81 MG TAB PO SCH (06:46)
[2025-02-13 06:52] LABS: ALT/SGPT 68.0 U/L (16-61); AST/SGOT 140.0 U/L (15-37); Albumin 2.9 g/dL (3.4-5.0); Albumin/Globulin Ratio 1.3 (1.1-1.8); Alkaline Phosphatase 101.0 U/L (45-117); Anion Gap 8.4 mEq/L (5.0-15.0); BUN Blood Urea Nitrogen 41.0 mg/dL (7-18); Bilirubin Indirect, Calculated 0.2 mg/dL (0.2-0.8); Globulin 2.2 g/dL (2.3-3.5); Glucose Level 179.0 mg/dL (74-106); HDL Cholesterol 51.0 mg/dL (40-60); LDL Cholesterol, Calculated 37.0 mg/dL (<130); LDL Cholesterol,Calc NonReport 37.0; Potassium 3.4 mEq/L (3.5-5.1)
[2025-02-13 06:56] LABS: Troponin High Sensitivity 21062.9 pg/mL (<58.9)
[2025-02-13] MEDS ORDERED: HEPA 1000U/500MLS 2,000 UNIT/1,000 ML BAG IV ONE (09:08)
[2025-02-13] MEDS ORDERED: HEPARIN 10,000 UNIT/10 ML VIAL IV ONE (09:08)
[2025-02-13] MEDS ORDERED: LIDOCAINE 1% 20 ML MDV ONE ×2 (09:09→10:21)
[2025-02-13] MEDS ORDERED: ATROPINE SULF 1 MG/10 ML SYR IV ONE (09:13)
[2025-02-13] MEDS ORDERED: ASPIRIN 325 MG TAB ONE (09:14)
[2025-02-13] MEDS ORDERED: TICAGRELOR 90 MG TABLET PO ONE (09:14)
[2025-02-13] MEDS: ONDANSETRON 4 MG/2 ML VIAL IV PRN (09:33)
--- NOTE | 2025-02-13 09:40 | P.CNS ---
Date of Consult: 02/13/25 Chief Complaint: Confusion and weakness History of Present Illness: Patient with PMH of DM, HTN, CAD s/p PCI in 2019, presented with 4 days constipation, not feeling well, denies chest pain, but report abdominal pain, no palpitations, no syncope, no breathing problems. Allergies codeine Adverse Reaction (Verified 10/02/23 12:24) Nausea/Vomiting Home medications list reviewed: Yes Home Medications: Insulin NPH Human Isophane [Novolin N] 16 units SQ BIDWM 04/17/20 Insulin Regular, Human [Novolin R] 4 units SQ BIDWM 04/17/20 lisinopriL [Zestril] 10 mg PO DAILY 04/17/20 Aspirin [Aspirin EC 81 MG] 81 mg PO DAILY 30 Days #30 tablet. 04/18/20 Atorvastatin Calcium [Lipitor] 1 tab PO BEDTIME 30 Days #30 tab 04/18/20 Clopidogrel Bisulfate [Plavix*] 1 tab PO DAILY 30 Days #30 tablet 04/18/20 - Past Medical/Surgical History Diabetic: Yes -: HTN -: Insulin dependent DM Type 1 -: kidney stones -: colonoscopy -: CAD/[place] -: Colon cancer status post chemoradiation -: Colon resection - Family History Father Medical History: Heart disease Mother Medical History: Cancer Notes: breast cancer Sister Medical History: Cancer Notes: breast cancer - Social History Smoking Status: Unknown if ever smoked Alcohol use: Yes CD- Drugs: No Caffeine use: Yes Place of Residence: Home Review of Systems 10-point ROS is otherwise unremarkable Physical Examination Temp Pulse Resp BP Pulse Ox 97.5 F 85 16 120/52 L 99 02/13/25 09:01 02/13/25 09:02 02/13/25 09:02 02/13/25 09:02 02/13/25 09:00 General: Alert, In no apparent distress HEENT: Atraumatic, PERRLA, Mucous membr. moist/pink, EOMI, Sclerae nonicteric Neck: Supple, 2+ carotid pulse no bruit, No LAD, Without JVD or thyroid abnormality Respiratory: Clear to auscultation bilaterally, Normal air movement Cardiovascular: Regular rate/rhythm, Normal S1 S2 Gastrointestinal: Normal bowel sounds, No tenderness Musculoskeletal: No tenderness Integumentary: No rashes Neurological: Normal gait, Normal speech, Normal tone, Normal affect Lymphatics: No axilla or inguinal lymphadenopathy Laboratory Data (last 24 hrs) 02/12/25 02/12/25 02/12/25 20:15 17:47 17:47 WBC 10.80 Hgb 12.0 L Hct 37.1 L Plt Count 146 L Sodium 123 L Potassium 5.9 H BUN 48 H Creatinine 1.85 H Glucose 895 H* 989 H* Magnesium 2.0 Total Bilirubin 1.3 H AST 127 H ALT 67 H Alkaline Phosphatase 139 H Lipase 18 - Problems (1) HTN (hypertension) Current Visit: Yes Status: Acute Plan: BP is soft for now, continue to monitor (2) DKA (diabetic ketoacidosis) Current Visit: Yes Status: Acute Plan: insulin drip per primary team, hydration. (3) Non-STEMI (non-ST elevated myocardial infarction) Current Visit: Yes Status: Acute Plan: although patient denies chest pain but troponin is significantly elevated. NPO for coronary angiogram ASA 81 mg daily Heparin drip ACS protocol. get echo
[2025-02-13] MEDS: MIDAZOLAM HCL 2 MG/2 ML INJ ONE (09:48)
[2025-02-13] MEDS: NA CHLORIDE 0.9% 0 ML ONE (09:48)
[2025-02-13] MEDS: FENTANYL CITR 100 MCG/2 ML ONE (09:48)
[2025-02-13] MEDS ORDERED: Phenylephrine HCl 10 MG/ML 1 ML VIAL ONE (10:26)
[2025-02-13] MEDS ORDERED: ONDANSETRON 4 MG/2 ML VIAL ONE (10:45)
--- NOTE | 2025-02-13 12:19 | OP ---
Date of Procedure: 02/13/2025 Surgeon: Michele Casillas Procedure Performed: Selective coronary angiogram. Indication For Procedure: The patient presented with constipation, weakness, fatigue, DKA, and found to have [id number] NM. Complications: None. Estimated Blood Loss: Less than 50 cc. Access: Right radial, closed by TR band. Sedation Time: 20 minutes. Sedation given is Description Of Procedure: After risks and benefits and alternatives were explained to the patient, p james agreed to proceed with procedure and signed informed consent. The patient was brought back to the cath lab radiology technician, prepped and draped in sterile fashion. Time-out was performed. Sedation was administ ered. Next, right radial access was obtained using ultrasound-guided micropuncture technique. [place] 4.0 catheter was advanced over a J-wire to the aortic root. Selective angiogram was done using the same catheter. At the end of procedure, catheter was removed over a J-wire. Sheath was removed. TR band was applied. Hemostasis was achieved. The patient was moved back to recovery in stable condit ion. Findings: 1. Left main normal. 2. LAD; proximal mild luminal irregularities with mid 40% disease, then mild luminal irregularities. 3. Left circ; mild luminal irregularities. 4. RCA; proximal to mid mild luminal irregularities, then distal stent patent, then mild luminal irre gularities. 5. RPDA/RPLB mild luminal irregularities. Assessment And Plan: 1. Mild to moderate mid LAD disease. 2. Patent RCA stent. Plan is to continue aspirin and Plavix and treat for non-STEMI. ROSANNA/JALEN Voice ID: [id number] Report ID: [id number]
[2025-02-13] MEDS: POTASSIUM CL SA 10 MEQ TAB PO ONE (12:53)
[2025-02-13 13:48] LABS: Anion Gap 10.2 mEq/L (5.0-15.0); BUN Blood Urea Nitrogen 41.0 mg/dL (7-18); Glucose Level 241.0 mg/dL (74-106); Potassium 5.2 mEq/L (3.5-5.1)
[2025-02-13 13:49] LABS: Troponin High Sensitivity 16769.6 pg/mL (<58.9)
[2025-02-13] MEDS: INSULIN GLARGINE 100 UNIT/ML SQ ONE (14:00)
[2025-02-13] MEDS: PROMETHAZINE INJ 25 MG/ML AMP IM ONE (15:47)
--- NOTE | 2025-02-13 16:13 | P.PN ---
Date of Service: 02/13/25 Subjective: In heart cath this a.m. Review of Systems General: Weakness, Malaise Respiratory: Unremarkable Cardiovascular: Unremarkable Gastrointestinal: Nausea Genitourinary: Unremarkable Neurological: Confusion Physical Examination - Physical Exam General: Alert, Oriented x3, Other (Mildly drowsy but conversant and intermittently anxious) HEENT: Atraumatic, Normocephalic Neck: Supple, 2+ carotid pulse no bruit, JVD not distended Respiratory: Clear to auscultation bilaterally, Normal air movement (Chemo-Port over right chest wall) Cardiovascular: Normal pulses, Regular rate/rhythm, Normal S1 S2 Gastrointestinal: Normal bowel sounds, Soft and benign, Non-distended, Tenderness (Mild periumbilical and suprapubic area tenderness but no rebound or guarding) Musculoskeletal: No clubbing, No swelling Integumentary: No rashes, No breakdown Neurological: Normal speech, Normal strength at 5/5 x4 extr, Sensation intact, Cranial nerves 3-12 intact - Studies Laboratory Data (last 24 hrs) 02/12/25 02/12/25 02/12/25 20:15 17:47 17:47 WBC 10.80 Hgb 12.0 L Hct 37.1 L Plt Count 146 L Sodium 123 L Potassium 5.9 H BUN 48 H Creatinine 1.85 H Glucose 895 H* 989 H* Magnesium 2.0 Total Bilirubin 1.3 H AST 127 H ALT 67 H Alkaline Phosphatase 139 H Lipase 18 Assessment and Plan - Problems (Diagnosis) (1) DKA (diabetic ketoacidosis) Current Visit: Yes Status: Acute (2) Acute kidney injury Current Visit: Yes Status: Acute (3) Non-STEMI (non-ST elevated myocardial infarction) Current Visit: Yes Status: Acute (4) Hyperkalemia Current Visit: Yes Status: Acute - Plan Impression Acute DKA Cecal colitis Non-STEMI Acute kidney injury Hyperkalemia Pseudohyponatremia History of hypertension History of colon cancer s/p resection and chemoradiation DKA continue insulin drip protocol Admit to ICU Gentle IV fluid with NS for now Keep n.p.o. until anion gap closes BMP every 4 A1c at 10.[address] noted Start empiric antibiotics with cefepime/Levaquin Follow abdominal pain/tenderness Keep n.p.o. for now Non-STEMI Cardiology consulted This morning with left main normal Mild to moderate mid LAD disease with patent RCA stent Stop heparin drip Continue aspirin and Plavix per recommendation Acute kidney injury Hyperkalemia follow with glucose control Follow potassium and sodium response to glucose control Continue gentle IV fluid Avoid nephrotoxin Renally dose all meds Nephrology following DVT prophylaxison heparin drip Advance directivefull code Total time spent in discussion with patient on evaluation greater than 75 minutes. - Advance Directives Does patient have a Living Will: No Does patient have a Durable POA for Healthcare: No
[2025-02-13 20:08] LABS: Anion Gap 11.7 mEq/L (5.0-15.0); BUN Blood Urea Nitrogen 42.0 mg/dL (7-18); Glucose Level 367.0 mg/dL (74-106); Potassium 4.7 mEq/L (3.5-5.1)
[2025-02-13] MEDS ORDERED: GLUCAGON 1 MG/VIAL IM PRN (20:25)
[2025-02-13] MEDS ORDERED: D10W 125 ML IV PRN (20:25)
[2025-02-13] MEDS: INSULIN GLARGINE 100 UNIT/ML SQ SCH (21:00)
[2025-02-13] MEDS: INSULIN REGULAR (HUMAN) 100 UNIT/ML SQ SCH (21:38)
[2025-02-13] MEDS: Levofloxacin 250mg IV 250 MG/50 ML BAG IV SCH (21:39)
[2025-02-13] MEDS: ATORVASTATIN 80 MG TAB PO SCH (21:39)
[2025-02-13] MEDS: GUAIFENESIN 600 MG SA TAB PO SCH (21:39)
--- NOTE | 2025-02-14 02:09 | CON ---
Date of Consultation: 02/13/2025 Chief Complaint: Acute kidney injury. History Of Present Illness: The patient is a 69-year-old man with past medical history of hypertensi on, diabetes mellitus type 2, coronary artery disease, history of myocardial infarction in 2019, rece ived 1 stent and had PTCA done in 2019. He has history of colorectal cancer, status post colon resec tion and had chemo and radiation therapy, completed chemo 3 months ago. He is insulin-dependent and has diabetes mellitus and states he has been compliant with his medication. He denies nausea, vomiti ng, diarrhea. He was brought to the hospital because he was lethargic and confused on arrival to [facility] room. He had borderline hypotension. Blood pressure was 106/46. He was afebrile and did not have tachycardia. Lab work showed glucose of 989, anion gap was 20. CBC was unremarkable. Liver f unction tests, mildly elevated bilirubin. BMP showed sodium of 129, potassium 5.9, bicarbonate 11, c reatinine 1.85. He also had elevated troponin of 7325. EKG showed normal sinus rhythm and third-deg ree AV block. No ST-segment changes. He was started on IV fluids and treatment for DKA with insulin drip. Nephrology consultation is requested today. The patient is to have IV contrast exposure arjun use he is to have cardiac catheterization. Home Medications: Include insulin, lisinopril, aspirin, atorvastatin, and Plavix. Past Medical History: Hypertension, diabetes mellitus, coronary artery disease status post stent, ki dney stones, colon cancer, status post chemo and radiation, colon resection. Family History: Father, heart disease. Mother with breast cancer. Sister with breast cancer. Social History: Never smoker. Denies smoking, although he drinks alcohol. Denies caffeine. Review of Systems: General: Complains of generalized weakness. Respiratory: Denies cough, hemoptysis. Cardiovascular: Denies chest pain, palpitations, syncope. GI: Denies nausea, vomiting. : Denies dysuria, hematuria. Physical Examination: General: The patient is alert, oriented x3. HEENT: Atraumatic, normocephalic. Neck: Supple. Respiratory: Clear to auscultation bilaterally. Cardiovascular: S1, S2. No pericardial friction rub. Abdomen: Soft, benign, nontender. Extremities: No edema. No clubbing. No cyanosis. Neurological: Moving extremities. Cranial nerves intact. Laboratory Data: On arrival to the hospital, sodium was 123, potassium 5.9, BUN 48, creatinine 1.85, glucose 989, magnesium 2.0, total bilirubin 1.3, lipase 18, AP 139, AST 127, ALT 67. Hemoglobin 12, WBC 10.8, platelet count 146,000. Impression And Plan: 1. Acute kidney injury due to prerenal azotemia and nonoliguric ATN. The patient has uncontrolled di abetes presented with DKA. Troponin is elevated, likely patient has cardiorenal syndrome with acute myocardial infarction. The patient has hyperkalemia due to DKA and uncontrolled hyperglycemia. Cont inue insulin for diabetic control with [id number] myocardial infarction. The patient is to hav e cardiac catheterization when blood glucose is controlled. Continue IV fluids for the exposure to I V contrast and continue Mucomyst. Patient is scheduled to have cardiac catheterization. Avoid nephr otoxic medication, avoid nonsteroidal anti-inflammatory medication. CT scan shows fecal colitis and the patient was started on empiric antibiotics. 2. Hyperkalemia. Avoid nephrotoxic medication. Monitor electrolytes closely and continue insulin fo r DKA. 3. Metabolic acidosis due to DKA. Monitor lab work when patient is on insulin drip. EB/MODL Voice ID: [id number] Report ID: [id number]
[2025-02-14 07:54] LABS: Anion Gap 7.1 mEq/L (5.0-15.0); BUN Blood Urea Nitrogen 30.0 mg/dL (7-18); Glucose Level 173.0 mg/dL (74-106); Potassium 4.1 mEq/L (3.5-5.1)
[2025-02-14 08:14] LABS: Absolute Lymphocytes (CBC) 0.9 K/uL (0.7-4.9); Hematocrit 31.8 % (39.6-49.0); Hemoglobin 11.2 g/dL (13.6-17.9); MCH 31.8 pg (27.0-35.0); MCHC 35.3 g/dL (32.0-36.0); MCV 90.1 fL (80-100); MPV 9.1 fL (7.6-11.3); Nucleated RBC Absolute Count 0.0 (0-0); Nucleated Red Blood Cells % 0.0 % (0-0); RBC Red Blood Cell Count 3.53 M/uL (4.33-5.43); White Blood Count 7.10 thou/uL (4.3-10.9)
[2025-02-14 08:21] LABS: Uric Acid 4.1 mg/dL (3.5-7.2)
--- NOTE | 2025-02-14 08:51 | ECHO ---
HEIGHT: 5 ft 9 in WEIGHT: 156 lb 8 oz DATE OF STUDY: 02/13/[address]: Eddi Shetty MD 2-DIMENSIONAL: YES M.MODE: YES DOPPLER: YES COLOR FLOW: YES TDS: PORTABLE: YES DEFINITY: BUBBLE STUDY: DIAGNOSIS: CEREBRAL VASCULAR ACCIDENT, RULE OUT VEGETATION CARDIAC HISTORY: CATHERIZATION: YES SURGERY: NO PROSTHETIC VALVE: NO PACEMAKER: NO MEASUREMENTS (cm) DIASTOLIC (NORMALS) SYSTOLIC (NORMALS) IVSd 1.4 (0.6-1.2) LA Diam 3.0 (1.9-4.0) LVEF 60-65% LVIDd 3.0 (3.5-5.7) LVIDs 1.8 (2.0-3.5) %FS 39% LVPWd 1.1 (0.6-1.2) Ao Diam 2.9 (2.0-3.7) 2 DIMENSIONAL ASSESSMENT: RIGHT ATRIUM: NORMAL LEFT ATRIUM: MILDLY DILATED RIGHT VENTRICLE: NORMAL LEFT VENTRICLE: MODERATE LEFT VENTRICULAR HYPERTROPHY TRICUSPID VALVE: MILD TRICUSPID REGURGITATION MITRAL VALVE: CALCIFIED, POSTERIOR LEAFLET PULMONIC VALVE: NORMAL AORTIC VALVE: NORMAL PERICARDIAL EFFUSION: NONE AORTIC ROOT: NORMAL LEFT VENTRICULAR WALL MOTION: NORMAL DOPPLER/COLOR FLOW: NORMAL COMMENTS: 1. NORMAL LEFT VENTRICULAR SYSTOLIC FUNCTION, EJECTION FRACTION 60-65%, NORMAL WALL MOTION 2. NORMAL DIASTOLIC FUNCTION 3. CALCFIED, POSTERIOR MITRAL VALVE LEAFLET WITH TRACE MITRAL REGURGITATION 4. MILD PULMONARY HYPERTENSION (RIGHT VENTRICULAR SYSTOLIC PRESSURE 40-50 mmHg) 5. ELEVATED FILLING PRESSURE (RIGHT ATRIAL PRESSURE 15-20 mmHg) TECHNOLOGIST: [facility]
--- NOTE | 2025-02-14 10:58 | P.PN ---
Subjective Date of Service: 02/14/25 Chief Complaint: Confusion and weakness Subjective: No new changes, No C/O voiced, Tolerating diet, Ambulating, Improving Review of Systems 10-point ROS is otherwise unremarkable Physical Examination - Vital Signs Temperature: 99.1 F Blood Pressure: 101/59 Pulse: 58 Respirations: 14 Pulse Ox (%): 97 - Physical Exam General: Alert, In no apparent distress HEENT: Atraumatic, PERRLA, EOMI Neck: Supple, JVD not distended Respiratory: Clear to auscultation bilaterally, Normal air movement Cardiovascular: Regular rate/rhythm, Normal S1 S2 Gastrointestinal: Normal bowel sounds, No tenderness Musculoskeletal: No tenderness Integumentary: No rashes Neurological: Normal speech, Normal tone, Normal affect Lymphatics: No axilla or inguinal lymphadenopathy - Studies Medications List Reviewed: Yes Assessment And Plan - Current Problems (Diagnosis) (1) HTN (hypertension) Current Visit: Yes Status: Acute Plan: BP is soft for now, continue to monitor (2) DKA (diabetic ketoacidosis) Current Visit: Yes Status: Acute Plan: insulin drip per primary team, hydration. (3) Non-STEMI (non-ST elevated myocardial infarction) Current Visit: Yes Status: Acute Plan: although patient denies chest pain but troponin is significantly elevated. coronary angiogram done and shown patent RCA stent with mild to moderate mid LAD disease Echo shows normal LV function and normal toussaint motion ASA 81 mg daily Plavix 75 mg daily Lower Lipitor to 40 mg daily Patient to follow up with cardiology as outpatient. Cardiology will sign off, please call with any questions.
--- NOTE | 2025-02-14 11:50 | CON ---
Date of Consultation: 02/14/2025 Reason For Consultation: Elevated BUN and creatinine, fluid management. History Of Present Illness: This is a pleasant 69-year-old gentleman with significant past medical h istory of diabetes for more than 50 years, complicated with neuropathy, no retinopathy; hypertension; hyperlipidemia; CAD, status post [id number] [place]. The patient came to the hospital with DKA, no p-WX-[id number] [place]. The patient was started on aggressive hydration with insulin drip. Upon arrival to the hospital, patient's kidney function was declined with creatinine of 1.8. After hydration, kid sergey function improved down to 1.2. The patient had cardiac cath yesterday. Today, creatinine 0.8. The patient admits that he had been taking ibuprofen on occasional basis. The patient denied taking any other of medication. The patient has been on lisinopril as an outpatient. The patient denied a [place] fever, any chills, any rash. Past Medical History: Includes: 1. Diabetes since 1974. 2. Hypertension. 3. Hyperlipidemia. 4. CAD. Allergies: CODEINE. Home Medications: Include insulin, lisinopril, aspirin, atorvastatin, and Plavix. Past Surgical History: Include cardiac cath, colon cancer, colon resection. Family History: Positive for hypertension and CAD with cancer. Social History: Denied smoking. Denied drinking. Denied drugs abuse. Review of Systems: Head and Neck: No red eye. No ear pain. GI: No nausea, no vomiting. : No polyuria, no dysuria, no hematuria. CUSTOMER SERVICE OPERATOR: Not applicable. Respiratory: No shortness of breath. Cardiovascular: No chest pain. Endocrine: No polydipsia. Skin: No rash. Neuro: Has neuropathy. Musculoskeletal: Generalized fatigue. Physical Examination: Vital Signs: When I saw the patient, blood pressure 112/65, pulse of 58, afebrile. Chest: Clear to auscultation. Heart: S1, S2 regular. Abdomen: Soft, nontender. Extremities: No edema. Neuro: Alert. No focality. Laboratory Data: Upon arrival to the hospital, sodium 123, potassium 5.9, bicarb 12, BUN 48, creatin ine 1.8. GFR of 39. Calcium 8.4. Albumin 3.6. WBC 10.8, hemoglobin 12. ABG: The pH 7.22, CO2 of 26, O2 of 159. Today, lab data: Sodium 140, potassium 4.1, bicarb 28, BUN 30, creatinine 0.8, calc ium 8.2. CT abdomen and pelvis showing no hydronephrosis, normal-sized kidney. Assessment And Plan: 1. Acute kidney injury secondary to prerenal, secondary to glucose diuresis, recovered, resolved. Ex posed to contrast yesterday. We will monitor lab by tomorrow. Obstructive uropathy has been ruled o ut. We will send for PC ratio and we will follow up. I agree with holding ROHIT inhibitor for the mauro e being and we will follow up. 2. Hypertension with the presence of acute kidney injury and hyperkalemia. I agree with holding ROHIT inhibitor. 3. Hyperkalemia secondary to renal failure, resolved. Keep holding ROHIT inhibitor. We will send for TSH. 4. Acidosis secondary to renal failure and diabetic ketoacidosis, status post treatment recovered, re solved. 5. Non-elevation myocardial infarction as by Cardiology. 6. Hyponatremia secondary to pseudohyponatremia and depletional has been corrected, resolved. Thank you Dr. Shetty for allowing us to participate in the care of your patient. Time spent examin ing the patient [id number]; reviewing data, lab, and radiology; placing order; discussing the case with the patient; discussing the case with the steam press operator including hospitalist and nursing staff mo re than 75 minutes. HCELY Voice ID: [id number] Report ID: [id number]
--- NOTE | 2025-02-14 17:05 | P.PN ---
Date of Service: 02/14/25 Subjective: Resting comfortably. Discussed downgrading the floor. Denies chest pain, shortness of breath, fevers, chills. Review of Systems General: Weakness, Malaise Respiratory: Unremarkable Cardiovascular: Unremarkable Gastrointestinal: Nausea Genitourinary: Unremarkable Neurological: Confusion Physical Examination - Physical Exam General: Alert, Oriented x3, Other (Mildly drowsy but conversant and intermittently anxious) HEENT: Atraumatic, Normocephalic Neck: Supple, 2+ carotid pulse no bruit, JVD not distended Respiratory: Clear to auscultation bilaterally, Normal air movement (Chemo-Port over right chest wall) Cardiovascular: Normal pulses, Regular rate/rhythm, Normal S1 S2 Gastrointestinal: Normal bowel sounds, Soft and benign, Non-distended, Tenderness (Mild periumbilical and suprapubic area tenderness but no rebound or guarding) Musculoskeletal: No clubbing, No swelling Integumentary: No rashes, No breakdown Neurological: Normal speech, Normal strength at 5/5 x4 extr, Sensation intact, Cranial nerves 3-12 intact - Studies Laboratory Data (last 24 hrs) 02/12/25 02/12/25 02/12/25 20:15 17:47 17:47 WBC 10.80 Hgb 12.0 L Hct 37.1 L Plt Count 146 L Sodium 123 L Potassium 5.9 H BUN 48 H Creatinine 1.85 H Glucose 895 H* 989 H* Magnesium 2.0 Total Bilirubin 1.3 H AST 127 H ALT 67 H Alkaline Phosphatase 139 H Lipase 18 Assessment and Plan - Problems (Diagnosis) (1) DKA (diabetic ketoacidosis) Current Visit: Yes Status: Acute (2) Acute kidney injury Current Visit: Yes Status: Acute (3) Non-STEMI (non-ST elevated myocardial infarction) Current Visit: Yes Status: Acute (4) Hyperkalemia Current Visit: Yes Status: Acute - Plan Impression Acute DKA Cecal colitis Non-STEMI Acute kidney injury Hyperkalemia Pseudohyponatremia History of hypertension History of colon cancer s/p resection and chemoradiation DKA DKA resolved Start sliding scale insulin Downgrade to floor Electrolyte abnormalities correct and anion gap closed Keep n.p.o. until anion gap closes Daily BMP A1c at 10.7, diabetic education offered Cecal colitis CT noted Stop antibiotics and monitor Follow abdominal pain/tenderness Keep n.p.o. for now Non-STEMI s/p heart cath with patent RCA stent and mild to moderate mid LAD disease Echo with normal LV function and wall motion Cardiology consulted and appreciate recommendation This morning with left main normal Mild to moderate mid LAD disease with patent RCA stent Stop heparin drip Continue aspirin and Plavix per recommendation Acute kidney injury Hyperkalemia follow with glucose control Follow potassium and sodium response to glucose control Continue gentle IV fluid Avoid nephrotoxin Renally dose all meds Nephrology following DVT prophylaxison heparin drip Advance directivefull code Total time spent in discussion with patient on evaluation greater than 75 minutes. - Advance Directives Does patient have a Living Will: No Does patient have a Durable POA for Healthcare: No
[2025-02-14 22:09] VITALS: O2SAT 96
[2025-02-15 08:27] LABS: ALT/SGPT 105.0 U/L (16-61); AST/SGOT 173.0 U/L (15-37); Albumin 2.6 g/dL (3.4-5.0); Albumin/Globulin Ratio 1.1 (1.1-1.8); Alkaline Phosphatase 173.0 U/L (45-117); Anion Gap 5.0 mEq/L (5.0-15.0); BUN Blood Urea Nitrogen 15.0 mg/dL (7-18); Globulin 2.3 g/dL (2.3-3.5); Glucose Level 127.0 mg/dL (74-106); Potassium 4.0 mEq/L (3.5-5.1)
--- NOTE | 2025-02-15 11:40 | P.PN ---
Date of Service: 02/15/25 t 69-year-old gentleman with significant past medical history of diabetes for more than 50 years, complicated with neuropathy, no retinopathy; hypertension; hyperlipidemia; CAD, status post [id number] [place]. The patient came to the hospital with DKA, nonST-elevation [place]. The patient was started on aggressive hydration with insulin drip. Upon arrival to the hospital, patient's kidney function was declined with creatinine of 1.8. After hydration, kidney function improved down to 1.2. The patient had cardiac cath yesterday. Today, creatinine 0.8. The patient admits that he had been taking ibuprofen on occasional basis. The patient denied taking any other of medication. The patient has been on lisinopril as an outpatient. The patient denied any fever, any chills, any rash. Physical Examination: Temp Pulse Resp BP Pulse Ox 99.1 F 62 12 110/57 L 97 02/15/25 08:00 02/15/25 09:10 02/15/25 08:00 02/15/25 09:10 02/15/25 08:00 Chest: Clear to auscultation. Heart: S1, S2 regular. Abdomen: Soft, nontender. Extremities: No edema. Neuro: Alert. No focality. Laboratory Last Values WBC 10.80 thou/uL (4.3-10.9) 02/12/25 17:47 RBC 3.77 M/uL (4.33-5.43) L 02/12/25 17:47 Hgb 12.0 g/dL (13.6-17.9) L 02/12/25 17:47 Hct 37.1 % (39.6-49.0) L 02/12/25 17:47 MCV 98.4 fL (80-100) 02/12/25 17:47 MCH 31.8 pg (27.0-35.0) 02/12/25 17:47 MCHC 32.3 g/dL (32.0-36.0) 02/12/25 17:47 RDW 15.0 % (12.1-15.2) 02/12/25 17:47 Plt Count 146 thou/uL (152-406) L 02/12/25 17:47 MPV 9.7 fL (7.6-11.3) 02/12/25 17:47 Neutrophils % 88.6 % (41.7-73.7) H 02/12/25 17:47 Lymphocytes % 8.4 % (15.3-44.8) L 02/12/25 17:47 Monocytes % 2.7 % (3.3-12.3) L 02/12/25 17:47 Eosinophils % 0.1 % (0-4.4) 02/12/25 17: Basophils % 0.2 % (0-1.3) 02/12/25 17:47 Absolute Neutrophils 9.6 K/uL (1.8-8.0) H 02/12/25 17:47 Absolute Lymphocytes 0.9 K/uL (0.7-4.9) 02/12/25 17:47 Absolute Monocytes 0.3 K/uL (0.1-1.3) 02/12/25 17: Absolute Eosinophils 0.0 K/uL (0-0.5) 02/12/25 17: Absolute Basophils 0.0 K/uL (0-0.5) 02/12/25 17:47 Platelet Estimate Adeq 02/12/25 17:47 Morphology Comment Not seen (NOT SEEN) 02/12/25 17:47 VBG pH 7.22 (7.32-7.42) L 02/12/25 17:47 VBG pCO2 26 mmHg (41-51) L 02/12/25 17:47 VBG pO2 159 mmHg (25-40) H 02/12/25 17:47 VBG HCO3 10.6 mmol/L (21.0-29.0) L* 02/12/25 17:47 VBG O2 Saturation 99.1 % (40.0-70.0) H 02/12/25 17:47 VBG Base Excess -17.1 mmol/L (-2.0-3.0) L 02/12/25 17:47 Sodium 123 mEq/L (136-145) L 02/12/25 17:47 Potassium 5.9 mEq/L (3.5-5.1) H 02/12/25 17:47 Chloride 85 mEq/L (98-107) L 02/12/25 17:47 Carbon Dioxide 12 mEq/L (21-32) L 02/12/25 17:47 Anion Gap 31.9 mEq/L (5.0-15.0) H 02/12/25 17:47 BUN 48 mg/dL (7-18) H 02/12/25 17:47 Creatinine 1.85 mg/dL (0.70-1.30) H 02/12/25 17:47 Est GFR (CKD-EPI) 39 ml/min (=/>90) L 02/12/25 17:47 Glucose 895 mg/dL (74-106) H* 02/12/25 20:15 POC Glucose > 500 mg/dL (65-120) H* 02/12/25 20:11 Calcium 8.4 mg/dL (8.5-10.1) L 02/12/25 17:47 Magnesium 2.0 mg/dL (1.6-2.4) 02/12/25 17:47 Total Bilirubin 1.3 mg/dL (0.2-1.0) H 02/12/25 17:47 AST 127 U/L (15-37) H 02/12/25 17:47 ALT 67 U/L (16-61) H 02/12/25 17:47 Alkaline Phosphatase 139 U/L (45-117) H 02/12/25 17:47 Troponin I High Sens 7349.3 pg/mL (<58.9) H* 02/12/25 17:47 Serum Total Protein 6.2 g/dL (6.4-8.2) L 02/12/25 17:47 Albumin 3.6 g/dL (3.4-5.0) 02/12/25 17:47 Globulin 2.6 g/dL (2.3-3.5) 02/12/25 17:47 Albumin/Globulin Ratio 1.4 (1.1-1.8) 02/12/25 17:47 Lipase 18 U/L (13-75) 02/12/25 17:47 Urine Color Colorless (Yellow) 02/12/25 19:15 Urine Clarity Clear (Clear) 02/12/25 19:15 Urine pH 5.0 (5.0-7.0) 02/12/25 19:15 Ur Specific [place] 1.020 (1.005-1.030) 02/12/25 19:15 Glucose (UA)(Auto) 4+ (over) (Negative) H 02/12/25 19:15 Urine Ketones 1+ (Negative) H 02/12/25 19:15 Urine Blood Negative (Negative) 02/12/25 19:15 Urine Nitrite Negative (Negative) 02/12/25 19:15 Urine Bilirubin Negative (Negative) 02/12/25 19:15 Urine Urobilinogen Normal (Normal) 02/12/25 19:15 Ur Leukocyte Esterase Negative [place]/uL (Negative) 02/12/25 19:15 Urine RBC <5 /HPF (None Seen) 02/12/25 19:15 Urine WBC <5 /HPF (<5) 02/12/25 19:15 Ur Squamous Epith Cells <5 /HPF (None Seen) 02/12/25 19:15 U Non-Squamous Epi Cells <5 /HPF (None Seen) 02/12/25 19:15 Urine Bacteria None seen /HPF (<20) 02/12/25 19:15 Urine Total Protein Negative (Negative) 02/12/25 19:15 Smear Scan Ok (OK) 02/12/25 17:47 Albuterol Sulfate (Albuterol 2.5 Mg/3 Ml Neb Emily) 2.5 mg NEB TID PRN PRN Reason: SHORTNESS OF BREATH Aspirin (Aspirin Ec 81 Mg Tab) 81 mg PO DAILY [facility] Last Admin: 02/15/25 09:10 Dose: 81 mg Atorvastatin Calcium (Atorvastatin 80 Mg Tab) 80 mg PO BEDTIME [facility] Last Admin: 02/14/25 20:47 Dose: 80 mg Clopidogrel Bisulfate (Clopidogrel 75 Mg Tablet) 75 mg PO DAILY [facility] Last Admin: 02/15/25 09:10 Dose: 75 mg Glucagon (Glucagon 1 Mg/Vial) 1 mg IM 1X PRN PRN Reason: HYPOGLYCEMIA Guaifenesin (Guaifenesin 600 Mg Sa Tab) 1,200 mg PO BID [facility] Last Admin: 02/15/25 09:10 Dose: 1,200 mg Hydralazine HCl (Hydralazine Hcl 20 Mg/Ml Vial) 10 mg IV Q6HP PRN PRN Reason: FOR SBP>160 OR DBP>100 MMHG Sodium Chloride (Ns 1000 Ml Ivbag) 1,000 mls @ 100 mls/hr IV .Q10H [facility] Last Admin: 02/15/25 05:07 Dose: 1,000 mls Dextrose (Dextrose 10% Water Iv Soln.) 125 mls @ 0 mls/hr IV PRN PRN; Protocol PRN Reason: HYPOGLYCEMIA Insulin Glargine (Insulin Glargine 100 Unit/Ml) 10 unit SQ BID [facility] Last Admin: 02/15/25 09:00 Dose: 10 unit Insulin Human Regular (Insulin Regular (Human) 100 Unit/Ml) 0 unit SQ ACHS [facility]; Protocol Last Admin: 02/15/25 09:15 Dose: 10 unit Morphine Sulfate (Morphine 2 Mg/Ml Syr) 2 mg IV Q4H PRN PRN Reason: Pain scale 5-7 (Moderate) Nitroglycerin (Nitroglycerin 0.2 Mg/Hr (5 Mg) Patch) 5 mg TD DAILY [facility] Last Admin: 02/15/25 09:10 Dose: 5 mg Ondansetron HCl (Ondansetron 4 Mg/2 Ml Vial) 4 mg IV Q8H PRN PRN Reason: NAUSEA / VOMITING Last Admin: 02/14/25 19:32 Dose: 4 mg Senna/Docusate Sodium (Docusate Na/Senna Conc 1 Tab) 2 tab PO BID [facility] Assessment And Plan: 1. Acute kidney injury normal-sized kidney minimal proteinuria secondary to prerenal, secondary to glucose diuresis, recovered, resolved. Exposed to contrast February 13 DC IV fluid Patient clear from the renal standpoint for DC planning 2. Hypertension with the presence of acute kidney injury and hyperkalemia. Continue holding ROHIT inhibitor. 3. Hyperkalemia secondary to renal failure, resolved. Keep holding ROHIT inhibitor. We will send for TSH. 4. Acidosis secondary to renal failure and diabetic ketoacidosis, GI loss secondary to colostomy status post treatment recovered, resolved. 5. Non-ST elevation myocardial infarction as by Cardiology. 6. Hyponatremia secondary to pseudohyponatremia and depletional has been corrected, resolved. Thank you Dr. Shetty for allowing us to participate in the care of your patient. Time spent examining the patient [id number]; reviewing data, lab, and radiology; placing order; discussing the case with the patient; discussing the case with the sales team leader including hospitalist and nursing staff more than 55 minutes.
[2025-02-15] MEDS ORDERED: DOCUSATE NA/SENNA CONC 1 TAB PO PRN (12:29)
[2025-02-15] MEDS: DOCUSATE NA/SENNA CONC 1 TAB PO SCH (13:10)
--- NOTE | 2025-02-15 16:26 | P.PN ---
Date of Service: 02/15/25 Subjective: Doing much better overall. He still has not had much to eat. He endorses weakness when getting out of bed. He is not able to have a bowel movement because he has not been eating much. He denies fevers and Review of Systems General: Weakness, Malaise Respiratory: Unremarkable Cardiovascular: Unremarkable Gastrointestinal: Nausea Genitourinary: Unremarkable Neurological: Confusion Physical Examination - Physical Exam General: Alert, Oriented x3, Other (Mildly drowsy but conversant and intermittently anxious) HEENT: Atraumatic, Normocephalic Neck: Supple, 2+ carotid pulse no bruit, JVD not distended Respiratory: Clear to auscultation bilaterally, Normal air movement (Chemo-Port over right chest wall) Cardiovascular: Normal pulses, Regular rate/rhythm, Normal S1 S2 Gastrointestinal: Normal bowel sounds, Soft and benign, Non-distended, Tenderness (Mild periumbilical and suprapubic area tenderness but no rebound or guarding) Musculoskeletal: No clubbing, No swelling Integumentary: No rashes, No breakdown Neurological: Normal speech, Normal strength at 5/5 x4 extr, Sensation intact, Cranial nerves 3-12 intact - Studies Laboratory Data (last 24 hrs) 02/12/25 02/12/25 02/12/25 20:15 17:47 17:47 WBC 10.80 Hgb 12.0 L Hct 37.1 L Plt Count 146 L Sodium 123 L Potassium 5.9 H BUN 48 H Creatinine 1.85 H Glucose 895 H* 989 H* Magnesium 2.0 Total Bilirubin 1.3 H AST 127 H ALT 67 H Alkaline Phosphatase 139 H Lipase 18 Assessment and Plan - Problems (Diagnosis) (1) DKA (diabetic ketoacidosis) Current Visit: Yes Status: Acute (2) Acute kidney injury Current Visit: Yes Status: Acute (3) Non-STEMI (non-ST elevated myocardial infarction) Current Visit: Yes Status: Acute (4) Hyperkalemia Current Visit: Yes Status: Acute - Plan Impression Acute DKA Cecal colitis Non-STEMI Acute kidney injury Hyperkalemia Pseudohyponatremia History of hypertension History of colon cancer s/p resection and chemoradiation DKA DKA resolved Continue sliding scale insulin Diabetic diet A1c at 10.7, diabetic education offered Cecal colitis Improved CT noted Stop antibiotics and monitor Follow abdominal pain/tenderness Diabetic diet Non-STEMI s/p heart cath with patent RCA stent and mild to moderate mid LAD disease Echo with normal LV function and wall motion Cardiology consulted and appreciate recommendation This morning with left main normal Mild to moderate mid LAD disease with patent RCA stent Stop heparin drip Continue aspirin and Plavix per recommendation Acute kidney injury Hyperkalemia Resolved follow with glucose control Follow potassium and sodium response to glucose control Continue gentle IV fluid Avoid nephrotoxin Renally dose all meds Nephrology following DVT prophylaxisSCDs Advance directivefull code Disposition: Home with home health or care home - Advance Directives Does patient have a Living Will: No Does patient have a Durable POA for Healthcare: No
--- NOTE | 2025-02-16 10:11 | P.DS ---
Admission Date: 02/12/25 Discharge Date: 02/16/25 Disposition: ROUTINE DISCHARGE Discharge Condition: GOOD Reason for Admission: Confusion and weakness Brief History of Present Illness: 69-year-old male with past medical history of HTN, DM type II, CAD status post CT in 2019 receiving [address] Cid, reportedly had another stent placed 1 year ago although he states it was done yet but no records, history of colorectal cancer status post colon resection and chemo radiation therapy, completed chemo [address] Monk, states he takes his regular insulin NPH and fast acting twice daily but unsure of the dose, states he has been compliant with his medication. He denies any nausea vomiting or diarrhea. He denies any recent constipation or abdominal pain. He was brought in by the son today after he was noted to be lethargic and confused. On arrival in the ED blood pressure was borderline at 106/46 afebrile nontachycardic. Laboratory workup showed glucose of 989 with anion gap of 20. CBC was unremarkable, LFT shows mildly evaded bilirubin, BMP shows serum sodium of 129, potassium 5.9, bicarb of 11 with creatinine of 1.85. He was also noted to have elevated troponin of 7325, EKG shows normal sinus rhythm with first-degree AV block. No ST segment changes. He was started on IV fluid, insulin boluses as well as insulin drip. He has also been started on heparin drip. His mentation is improving now. He denies any chest pain or palpitation. Patient denies any similar episode in the past. He is adamant in wanting to have his radiologist called regarding his admission. He is unable to provide the number of his radiologist and oncologist now. On admission he was admitted to the ICU. He was placed on DKA protocol. His clinical condition improved over the course of his stay. Cardiology was consulted and he was taken for cardiac cath. Cardiac cath revealed patent RCA stent with mild to moderate mid LAD disease. Echocardiogram was within normal limits. He will continue aspirin and Plavix. In addition his acute kidney injury and hyperkalemia resolved with IV fluid hydration. Furthermore imaging revealed possible cecal colitis. This improved as well over the course of his stay with antibiotics. He will be discharged home to follow-up with his primary care physician. Remainder of his medical problems are chronic and stable. He is medically optimized for discharge Hospital Course: Physical Examination - Physical Exam General: Alert, Oriented x3, Other (Mildly drowsy but conversant and inter mittently anxious) HEENT: Atraumatic, Normocephalic Neck: Supple, 2+ carotid pulse no bruit, JVD not distended Respiratory: Clear to auscultation bilaterally, Normal air movement (Chemo-Port over right chest wall) Cardiovascular: Normal pulses, Regular rate/rhythm, Normal S1 S2 Gastrointestinal: Normal bowel sounds, Soft and benign, Non-distended, Tenderness (Mild periumbilical and suprapubic area tenderness but no rebound or guarding) Musculoskeletal: No clubbing, No swelling Integumentary: No rashes, No breakdown Neurological: Normal speech, Normal strength at 5/5 x4 extr, Sensation intact, Cranial nerves 3-12 intact - Studies Laboratory Data (last 24 hrs) 02/12/25 02/12/25 02/12/25 20:15 17:47 17:47 WBC 10.80 Hgb 12.0 L Hct 37.1 L Plt Count 146 L Sodium 123 L Potassium 5.9 H BUN 48 H Creatinine 1.85 H Glucose 895 H* 989 H* Magnesium 2.0 Total Bilirubin 1.3 H AST 127 H ALT 67 H Alkaline Phosphatase 139 H Lipase 18 Assessment and Plan - Problems (Diagnosis) (1) DKA (diabetic ketoacidosis) Current Visit: Yes Status: Acute (2) Acute kidney injury Current Visit: Yes Status: Acute (3) Non-STEMI (non-ST elevated myocardial infarction) Current Visit: Yes Status: Acute (4) Hyperkalemia Current Visit: Yes Status: Acute - Plan Impression Acute DKA Cecal colitis Non-STEMI Acute kidney injury Hyperkalemia Pseudohyponatremia History of hypertension History of colon cancer s/p resection and chemoradiation DKA DKA resolved Continue sliding scale insulin Diabetic diet A1c at 10.7, diabetic education offered Cecal colitis Improved CT noted Stop antibiotics and monitor Follow abdominal pain/tenderness Diabetic diet Non-STEMI s/p heart cath with patent RCA stent and mild to moderate mid LAD disease Echo with normal LV function and wall motion Cardiology consulted and appreciate recommendation This morning with left main normal Mild to moderate mid LAD disease with patent RCA stent Stop heparin drip Continue aspirin and Plavix per recommendation Acute kidney injury Hyperkalemia Resolved follow with glucose control Follow potassium and sodium response to glucose control Continue gentle IV fluid Avoid nephrotoxin Renally dose all meds Nephrology following DVT prophylaxisSCDs Advance directivefull code Disposition: Home with home health or care home Vital Signs/Physical Exam: Temp Pulse Resp BP Pulse Ox 98.0 F 61 16 129/64 97 02/16/25 08:00 02/16/25 09:47 02/16/25 08:00 02/16/25 09:47 02/16/25 08:00 Laboratory Data at Discharge: WBC 7.10 thou/uL (4.3-10.9) 02/14/25 07:21 Hgb 11.2 g/dL (13.6-17.9) L D 02/14/25 07:21 Hct 31.8 % (39.6-49.0) L 02/14/25 07:21 Plt Count 114 thou/uL (152-406) L 02/14/25 07:21 PT 13.7 SECONDS (10-13.0) H 02/13/25 01:03 INR 1.22 02/13/25 01:03 APTT 80.4 SECONDS (27.2-37.4) H 02/13/25 06:25 Sodium 140 mEq/L (136-145) 02/15/25 08:01 Potassium 4.0 mEq/L (3.5-5.1) 02/15/25 08:01 BUN 15 mg/dL (7-18) 02/15/25 08:01 Creatinine 0.65 mg/dL (0.70-1.30) L 02/15/25 08:01 Glucose 127 mg/dL (74-106) H 02/15/25 08:01 Uric Acid 4.1 mg/dL (3.5-7.2) 02/14/25 07:21 Magnesium 2.0 mg/dL (1.6-2.4) 02/12/25 17:47 Total Bilirubin 1.0 mg/dL (0.2-1.0) 02/15/25 08:01 AST 173 U/L (15-37) H 02/15/25 08:01 ALT 105 U/L (16-61) H 02/15/25 08:01 Alkaline Phosphatase 173 U/L (45-117) H 02/15/25 08:01 Triglycerides 35 mg/dL (<150) 02/13/25 06:15 Cholesterol 95 mg/dL (<200) 02/13/25 06:15 HDL Cholesterol 51 mg/dL (40-60) 02/13/25 06:15 Cholesterol/HDL Ratio 1.86 02/13/25 06:15 Lipase 18 U/L (13-75) 02/12/25 17:47 Home Medications: Insulin NPH Human Isophane [Novolin N] 16 units SQ BIDWM 04/17/20 Insulin Regular, Human [Novolin R] 4 units SQ BIDWM 04/17/20 Aspirin [Aspirin EC 81 MG] 81 mg PO DAILY 30 Days #30 tablet.dr 04/18/20 Clopidogrel Bisulfate [Plavix*] 1 tab PO DAILY 30 Days #30 tablet 04/18/20 Atorvastatin Calcium [Lipitor] 1 tab PO BEDTIME 30 Days #30 tab 02/16/25 New Medications: Atorvastatin Calcium [Lipitor] 1 tab PO BEDTIME 30 Days #30 tab Physician Discharge Instructions: Home Health referral has been confirmed: [facility] P: [phone] F:[phone] Followup: NONE,NONE [Primary Care Provider] -
[2025-02-16] MEDS: POLYETHYL GLY 3350 17 GM/DOSE PO PRN (11:43)
[2025-02-16] MEDS: MAGNESIUM CITRATE 300 ML BOT PO PRN (11:43)
[2025-02-16] MEDS ORDERED: BISACODYL E.C. 5 MG TAB PO PRN (12:18)
--- NOTE | 2025-02-16 12:18 | P.PN ---
Date of Service: 02/16/25 t 69-year-old gentleman with significant past medical history of diabetes for more than 50 years, complicated with neuropathy, no retinopathy; hypertension; hyperlipidemia; CAD, status post [id number] UT. The patient came to the hospital with DKA, nonST-elevation UT. The patient was started on aggressive hydration with insulin drip. Upon arrival to the hospital, patient's kidney function was declined with creatinine of 1.8. After hydration, kidney function improved down to 1.2. The patient had cardiac cath yesterday. Today, creatinine 0.8. The patient admits that he had been taking ibuprofen on occasional basis. The patient denied taking any other of medication. The patient has been on lisinopril as an outpatient. The patient denied any fever, any chills, any rash. Physical Examination: Temp Pulse Resp BP Pulse Ox 98.0 F 61 16 129/64 97 02/16/25 08:00 02/16/25 09:47 02/16/25 08:00 02/16/25 09:47 02/16/25 08:00 Chest: Clear to auscultation. Heart: S1, S2 regular. Abdomen: Soft, nontender. Extremities: No edema. Neuro: Alert. No focality. Laboratory Last Values WBC 10.80 thou/uL (4.3-10.9) 02/12/25 17:47 RBC 3.77 M/uL (4.33-5.43) L 02/12/25 17:47 Hgb 12.0 g/dL (13.6-17.9) L 02/12/25 17:47 Hct 37.1 % (39.6-49.0) L 02/12/25 17:47 MCV 98.4 fL (80-100) 02/12/25 17:47 MCH 31.8 pg (27.0-35.0) 02/12/25 17:47 MCHC 32.3 g/dL (32.0-36.0) 02/12/25 17:47 RDW 15.0 % (12.1-15.2) 02/12/25 17:47 Plt Count 146 thou/uL (152-406) L 02/12/25 17:47 MPV 9.7 fL (7.6-11.3) 02/12/25 17:47 Neutrophils % 88.6 % (41.7-73.7) H 02/12/25 17:47 Lymphocytes % 8.4 % (15.3-44.8) L 02/12/25 17:47 Monocytes % 2.7 % (3.3-12.3) L 02/12/25 17:47 Eosinophils % 0.1 % (0-4.4) 02/12/25 17: Basophils % 0.2 % (0-1.3) 02/12/25 17:47 Absolute Neutrophils 9.6 K/uL (1.8-8.0) H 02/12/25 17:47 Absolute Lymphocytes 0.9 K/uL (0.7-4.9) 02/12/25 17:47 Absolute Monocytes 0.3 K/uL (0.1-1.3) 02/12/25 17: Absolute Eosinophils 0.0 K/uL (0-0.5) 02/12/25 17: Absolute Basophils 0.0 K/uL (0-0.5) 02/12/25 17:47 Platelet Estimate Adeq 02/12/25 17:47 Morphology Comment Not seen (NOT SEEN) 02/12/25 17:47 VBG pH 7.22 (7.32-7.42) L 02/12/25 17:47 VBG pCO2 26 mmHg (41-51) L 02/12/25 17:47 VBG pO2 159 mmHg (25-40) H 02/12/25 17:47 VBG HCO3 10.6 mmol/L (21.0-29.0) L* 02/12/25 17:47 VBG O2 Saturation 99.1 % (40.0-70.0) H 02/12/25 17:47 VBG Base Excess -17.1 mmol/L (-2.0-3.0) L 02/12/25 17:47 Sodium 123 mEq/L (136-145) L 02/12/25 17:47 Potassium 5.9 mEq/L (3.5-5.1) H 02/12/25 17:47 Chloride 85 mEq/L (98-107) L 02/12/25 17:47 Carbon Dioxide 12 mEq/L (21-32) L 02/12/25 17:47 Anion Gap 31.9 mEq/L (5.0-15.0) H 02/12/25 17:47 BUN 48 mg/dL (7-18) H 02/12/25 17:47 Creatinine 1.85 mg/dL (0.70-1.30) H 02/12/25 17:47 Est GFR (CKD-EPI) 39 ml/min (=/>90) L 02/12/25 17:47 Glucose 895 mg/dL (74-106) H* 02/12/25 20:15 POC Glucose > 500 mg/dL (65-120) H* 02/12/25 20:11 Calcium 8.4 mg/dL (8.5-10.1) L 02/12/25 17:47 Magnesium 2.0 mg/dL (1.6-2.4) 02/12/25 17:47 Total Bilirubin 1.3 mg/dL (0.2-1.0) H 02/12/25 17:47 AST 127 U/L (15-37) H 02/12/25 17:47 ALT 67 U/L (16-61) H 02/12/25 17:47 Alkaline Phosphatase 139 U/L (45-117) H 02/12/25 17:47 Troponin I High Sens 7349.3 pg/mL (<58.9) H* 02/12/25 17:47 Serum Total Protein 6.2 g/dL (6.4-8.2) L 02/12/25 17:47 Albumin 3.6 g/dL (3.4-5.0) 02/12/25 17:47 Globulin 2.6 g/dL (2.3-3.5) 02/12/25 17:47 Albumin/Globulin Ratio 1.4 (1.1-1.8) 02/12/25 17:47 Lipase 18 U/L (13-75) 02/12/25 17:47 Urine Color Colorless (Yellow) 02/12/25 19:15 Urine Clarity Clear (Clear) 02/12/25 19:15 Urine pH 5.0 (5.0-7.0) 02/12/25 19:15 Ur Specific [place] 1.020 (1.005-1.030) 02/12/25 19:15 Glucose (UA)(Auto) 4+ (over) (Negative) H 02/12/25 19:15 Urine Ketones 1+ (Negative) H 02/12/25 19:15 Urine Blood Negative (Negative) 02/12/25 19:15 Urine Nitrite Negative (Negative) 02/12/25 19:15 Urine Bilirubin Negative (Negative) 02/12/25 19:15 Urine Urobilinogen Normal (Normal) 02/12/25 19:15 Ur Leukocyte Esterase Negative [place]/uL (Negative) 02/12/25 19:15 Urine RBC <5 /HPF (None Seen) 02/12/25 19:15 Urine WBC <5 /HPF (<5) 02/12/25 19:15 Ur Squamous Epith Cells <5 /HPF (None Seen) 02/12/25 19:15 U Non-Squamous Epi Cells <5 /HPF (None Seen) 02/12/25 19:15 Urine Bacteria None seen /HPF (<20) 02/12/25 19:15 Urine Total Protein Negative (Negative) 02/12/25 19:15 Smear Scan Ok (OK) 02/12/25 17:47 Albuterol Sulfate (Albuterol 2.5 Mg/3 Ml Neb Emily) 2.5 mg NEB TID PRN PRN Reason: SHORTNESS OF BREATH Aspirin (Aspirin Ec 81 Mg Tab) 81 mg PO DAILY [facility] Last Admin: 02/16/25 09:46 Dose: 81 mg Atorvastatin Calcium (Atorvastatin 80 Mg Tab) 80 mg PO BEDTIME [facility] Last Admin: 02/15/25 20:50 Dose: 80 mg Clopidogrel Bisulfate (Clopidogrel 75 Mg Tablet) 75 mg PO DAILY [facility] Last Admin: 02/16/25 09:47 Dose: 75 mg Glucagon (Glucagon 1 Mg/Vial) 1 mg IM 1X PRN PRN Reason: HYPOGLYCEMIA Guaifenesin (Guaifenesin 600 Mg Sa Tab) 1,200 mg PO BID [facility] Last Admin: 02/16/25 09:46 Dose: 1,200 mg Hydralazine HCl (Hydralazine Hcl 20 Mg/Ml Vial) 10 mg IV Q6HP PRN PRN Reason: FOR SBP>160 OR DBP>100 MMHG Dextrose (Dextrose 10% Water Iv Soln.) 125 mls @ 0 mls/hr IV PRN PRN; Protocol PRN Reason: HYPOGLYCEMIA Insulin Glargine (Insulin Glargine 100 Unit/Ml) 10 unit SQ BID [facility] Last Admin: 02/16/25 09:00 Dose: 10 unit Insulin Human Regular (Insulin Regular (Human) 100 Unit/Ml) 0 unit SQ ACHS [facility]; Protocol Last Admin: 02/16/25 11:30 Dose: Not Given Magnesium Citrate (Magnesium Citrate 300 Ml Bot) 300 ml PO BID PRN PRN Reason: CONSTIPATION Last Admin: 02/16/25 11:43 Dose: 300 ml Morphine Sulfate (Morphine 2 Mg/Ml Syr) 2 mg IV Q4H PRN PRN Reason: Pain scale 5-7 (Moderate) Nitroglycerin (Nitroglycerin 0.2 Mg/Hr (5 Mg) Patch) 5 mg TD DAILY ROSA Last Admin: 02/16/25 09:47 Dose: 5 mg Ondansetron HCl (Ondansetron 4 Mg/2 Ml Vial) 4 mg IV Q8H PRN PRN Reason: NAUSEA / VOMITING Last Admin: 02/15/25 22:36 Dose: 4 mg Polyethylene Glycol (Polyethyl Gly 3350 17 Gm/Dose) 17 gm PO BID PRN PRN Reason: CONSTIPATION Last Admin: 02/16/25 11:43 Dose: 17 gm Senna/Docusate Sodium (Docusate Na/Senna Conc 1 Tab) 2 tab PO BID ROSA Last Admin: 02/16/25 09:46 Dose: 2 tab Assessment And Plan: 1. Acute kidney injury normal-sized kidney minimal proteinuria secondary to prerenal, secondary to glucose diuresis, recovered, resolved. Exposed to contrast February 13 DC IV fluid Patient clear from the renal standpoint for DC planning 2. Hypertension with the presence of acute kidney injury and hyperkalemia. Continue holding ROHIT inhibitor. 3. Hyperkalemia secondary to renal failure, resolved. Keep holding ROHIT inhibitor. We will send for TSH. 4. Acidosis secondary to renal failure and diabetic ketoacidosis, GI loss secondary to colostomy status post treatment recovered, resolved. 5. Non-ST elevation myocardial infarction as by Cardiology. 6. Hyponatremia secondary to pseudohyponatremia and depletional has been corrected, resolved. 7-constipation follow-up with your primary Thank you Dr. Shetty for allowing us to participate in the care of your patient. Time spent examining the patient [id number]; reviewing data, lab, and radiology; placing order; discussing the case with the patient; discussing the case with the steamer gum candy including hospitalist and nursing staff more than 55 minutes.
[2025-02-16 12:49] VITALS: BP 138/73; TEMP 97.8
== END 2025-02-16 14:01 | disposition home or self-care (01) | DRG 637 ==
LOC: ER 16:52 → ERHOLD 21:05 → 3RD-ICU 02-13 07:56 → 2ND 02-14 14:54
PROVIDERS: ADMIT Internal Medicine; ATTEND Family Medicine
PROC: 4A023N7 Measurement of Cardiac Sampling and Pressure, Left Heart, Percutaneous Approach (ICD-10-PCS; principal; 2025-02-13)
PROC: B2111ZZ Fluoroscopy of Multiple Coronary Arteries using Low Osmolar Contrast (ICD-10-PCS; 2025-02-13)
PROC: 0T9B70Z Drainage of Bladder with Drainage Device, Via Natural or Artificial Opening (ICD-10-PCS; 2025-02-15)
DX: E11.10 Type 2 diabetes mellitus with ketoacidosis without coma (principal); I21.4 Non-ST elevation (NSTEMI) myocardial infarction; N17.0 Acute kidney failure with tubular necrosis; C18.9 Malignant neoplasm of colon, unspecified; E87.5 Hyperkalemia; E11.42 Type 2 diabetes mellitus with diabetic polyneuropathy; I10 Essential (primary) hypertension; E78.5 Hyperlipidemia, unspecified; I44.0 Atrioventricular block, first degree; K59.00 Constipation, unspecified; I25.10 Atherosclerotic heart disease of native coronary artery without angina pectoris; I25.2 Old myocardial infarction; Z93.3 Colostomy status; Z88.5 Allergy status to narcotic agent; Z79.4 Long term (current) use of insulin; Z95.5 Presence of coronary angioplasty implant and graft; Z90.49 Acquired absence of other specified parts of digestive tract; Z79.82 Long term (current) use of aspirin; Z79.02 Long term (current) use of antithrombotics/antiplatelets; Z79.899 Other long term (current) drug therapy
CPT/HCPCS: 36415; 51702; 74176; 76937; 80048; 80053; 80061; 81001; 82248; 82550; 82570; 82803; 82947; 83036; 83690; 83735; 84156; 84443; 84484; 84550; 85025; 85610; 85730; 93005; 93306; 93454; 96361; 96374; 96375; 97161; 99285; C1893; J0461; J0692; J1644; J1815; J2003; J2250; J2371; J2405; J2550; J2765; J3010; J7030; J7040; Q9966

== ENCOUNTER 2025-03-27 18:09 | Inpatient (IN) | payer OTHER ==
[2025-03-27 18:38] LABS: Absolute Lymphocytes (CBC) 0.9 K/uL (0.7-4.9); Hematocrit 42.3 % (39.6-49.0); Hemoglobin 14.1 g/dL (13.6-17.9); MCH 30.8 pg (27.0-35.0); MCHC 33.4 g/dL (32.0-36.0); MCV 92.0 fL (80-100); MPV 9.1 fL (7.6-11.3); Nucleated RBC Absolute Count 0.0 (0-0); Nucleated Red Blood Cells % 0.1 % (0-0); RBC Red Blood Cell Count 4.59 M/uL (4.33-5.43); White Blood Count 8.40 thou/uL (4.3-10.9)
[2025-03-27] MEDS ORDERED: ONDANSETRON 4 MG/2 ML VIAL ONE (18:38)
[2025-03-27] MEDS ORDERED: FENTANYL CITR 100 MCG/2 ML ONE (18:38)
[2025-03-27] MEDS ORDERED: NA CHLORIDE 0.9% 1,000 ML ONE ×2 (18:39→19:48)
[2025-03-27 18:59] LABS: ALT/SGPT 28.0 U/L (16-61); AST/SGOT 23.0 U/L (15-37); Albumin 4.0 g/dL (3.4-5.0); Albumin/Globulin Ratio 1.4 (1.1-1.8); Alkaline Phosphatase 106.0 U/L (45-117); Anion Gap 23.7 mEq/L (5.0-15.0); BUN Blood Urea Nitrogen 25.0 mg/dL (7-18); Globulin 2.9 g/dL (2.3-3.5); Lipase 8.0 U/L (13-75); Potassium 4.7 mEq/L (3.5-5.1)
[2025-03-27 19:02] LABS: Glucose Level 597.0 mg/dL (74-106)
[2025-03-27] MEDS ORDERED: INSULIN REGULAR (HUMAN) 100 UNIT/ML ONE (19:47)
[2025-03-27] MEDS ORDERED: NA CHLORIDE 0.9% 100 ML ONE (19:48)
--- NOTE | 2025-03-27 19:59 | EDPHYS ---
Physician Documentation [facility] Name: Meir Scanlon Jr Age: 69 yrs Sex: Male : 1955 Arrival Date: 03/27/2025 Time: 18:09 Bed [id number] Private MD: ED Physician Quique Suresh HPI: 03/27 19:16 This 69 yrs old Male presents to ER via Wheelchair with complaints of Abdominal Pain, kb Vomiting. 19:16 Patient is a 69-year-old male who presents for abdominal pain and vomiting that started kb yesterday. States he had a colostomy reversal a few months ago and has not had normal bowel movements since then. States he is scheduled for colonoscopy today with Dr. Givens but could not have it done due to the vomiting. Denies fever.. Historical: - Allergies: 18:24 Codeine; af3 - PMHx: 18:24 Arthritis; Diabetes - IDDM; Hypertension; Kidney stones; LARS syndrome (Unknown); af3 Myocardial infarction; - Immunization history:: Adult Immunizations unknown. - Infectious Disease History:: Denies. - Social history:: Smoking status: Patient denies any tobacco usage or history of. ROS: 19:09 Constitutional: As per HPI kb Exam: 19:09 Constitutional: This is a well developed, well nourished patient who is awake, alert, kb and in no acute distress. Head/Face: Normocephalic, atraumatic. ENT: Moist Mucous membranes Cardiovascular: Regular rate Respiratory: Respirations even and unlabored. No increased work of breathing. Talking in full sentences Skin: Warm, dry with normal turgor. Normal color. MS/ Extremity: Pulses equal, no cyanosis. Neurovascular intact. Full, normal range of motion. Neuro: Awake and alert, GCS 15, oriented to person, place, time, and situation. 19:09 Abdomen/GI: Inspection: abdomen appears normal, Bowel sounds: normal, Palpation: soft, in all quadrants, mild abdominal tenderness, in all quadrants, Vital Signs: 18:22 BP 139 / 70; Pulse 104; Resp 18; Temp 98.3; Pulse Ox 100% on R/A; Weight 69.4 kg; af3 Height 5 ft. 9 in. ; 18:50 BP 130 / 54; Pulse 103; Resp 18; Pulse Ox 97% on R/A; af3 19:50 BP 134 / 56; Pulse 99; Resp 17; Pulse Ox 100% on R/A; Weight 69.4 kg; Height 5 ft. 9 tb4 in. ; Pain 3/10; 21:00 BP 106 / 46; Pulse 89; Resp 16; Pulse Ox 98% on R/A; tb4 22:00 BP 134 / 77; Pulse 67; Resp 17; Pulse Ox 99% on R/A; Pain 0/10; tb4 19:50 Body Mass Index 22.59 (69.40 kg, 175.26 cm) tb4 19:50 Pain Scale: Adult tb4 22:00 Pain Scale: Adult tb4 MDM: 18:13 Medical Screening Exam initiated kb 19:15 Data reviewed: vital signs, nurses notes. kb 19:16 Differential diagnosis: non-specific abd pain, Small bowel obstruction, dehydration, kb abnormal electrolytes, DKA. Historians other than the Patient: Family Member: Family. 19:56 Consideration of Admission/Observation Patient was admitted/placed on observation. kb Escalation of care including admission/observation considered. Management of patient was discussed with the following: Hospitalist: Dr Soliz accepts pt for admission. Care significantly affected by the following chronic conditions: Diabetes, Hypertension. Counseling: I had a detailed discussion with the patient and/or guardian regarding the historical points, exam findings, and any diagnostic results supporting the discharge/admit diagnosis, lab results, radiology results, the need for further work-up and treatment in the hospital. 03/27 18:13 Order name: CBC with Diff; Complete Time: 18:57 kb 03/27 18:13 Order name: CMP; Complete Time: 19:08 kb 03/27 18:13 Order name: Lipase; Complete Time: 19:08 kb 03/27 19:10 Order name: BETA HYDROXYBUTYRATE; Complete Time: 20:08 kb 03/27 19:10 Order name: Phosphorus; Complete Time: 20:08 kb 03/27 19:53 Order name: Glucose, Ancillary Testing; Complete Time: 19:55 EDMS 03/27 21:22 Order name: Glucose, Ancillary Testing EDVT 03/27 21:37 Order name: Basic Metabolic Panel EDVT 03/27 21:37 Order name: Basic Metabolic Panel EDVT 03/27 21:37 Order name: Basic Metabolic Panel EDVT 03/27 21:37 Order name: Basic Metabolic Panel EDMS 03/27 21:37 Order name: CBC with Automated Diff EDMS 03/27 21:37 Order name: CBC with Automated Diff EDMS 03/27 21:37 Order name: CBC with Automated Diff EDMS 03/27 21:37 Order name: CBC with Automated Diff EDMS 03/27 22:28 Order name: Glucose, Ancillary Testing EDMS 03/27 18:13 Order name: CT Abd/Pelvis - IV Contrast Only kb 03/27 19:10 Order name: EKG; Complete Time: 19:10 kb 03/27 18:13 Order name: IV Saline Lock; Complete Time: 18:36 kb 03/27 18:13 Order name: Labs collected and sent; Complete Time: 18:36 kb 03/27 19:10 Order name: EKG - Nurse/Tech; Complete Time: 20:56 kb 03/27 19:10 Order name: NPO; Complete Time: 19:51 kb EC:46 Rate is 97 beats/min. Rhythm is regular. QRS [place] is Normal. [place] interval is normal at dr5 208 msec. QRS interval is normal at 94 msec. QT interval is normal at 352 msec. Clinical impression: Normal ECG and No evidence of ischemia. Administered Medications: 18:49 Drug: NS 0.9% IV 1000 ml IV at 1000 ml once; to be given as a bolus over 60 minutes af3 Route: IV; Rate: 1000 ml; Site: right antecubital; 21:19 Follow up: Response: No adverse reaction; IV Status: Completed infusion tb4 18:49 Drug: Ondansetron IVP 4 mg IVP once; over 2 minutes Route: IVP; Site: right antecubital;af3 21:19 Follow up: Response: No adverse reaction; Nausea is decreased tb4 18:49 Drug: fentaNYL (PF) IVP 25 mcg IVP once Route: IVP; Site: right antecubital; af3 21:18 Follow up: Response: No adverse reaction; Pain is decreased; RASS: Alert and Calm (0) tb4 20:01 Drug: Insulin Drip - (Insulin Regular Human IVP 100 units, NS 0.9% IV 100 ml) IV at tb4 calculated rate continuous; Standard concentration 1unit/ml; Dose for DKA is 0.1 units/kg/hr {Co-Signature: me1 (Eddleman, Nadja RN).} Route: IV; Rate: 7 units/hr; Site: right forearm; 21:48 Follow up: Rate change 8 units/hr tb4 23:05 Follow up: IV Status: Infusion continued tb4 20:02 Drug: NS 0.9% IV 1000 ml IV at 1000 ml once; to be given as a bolus over 60 minutes tb4 Route: IV; Rate: 1000 ml; Site: right forearm; 23:04 Follow up: IV Status: Infusion continued tb4 Point of Care Testing: Blood Glucose: 22:17 Blood Glucose: 436 mg/dL; tb4 19:50 Results are unreadable due to being high. tb4 21:08 Unable to read, too high tb4 Ranges: Critical Glucose Levels:Adult <50 mg/dl or >400 mg/dl <40 mg/dl or >180 mg/dl Disposition Summary: 03/27/25 19:58 Hospitalization Ordered Notes: Hospitalization Status: Inpatient Admission kb Provider: Andrea Soliz Location: Intensive Care Unit kb Condition: Stable kb Problem: new kb Symptoms: are unchanged kb Bed/Room Type: [facility] Room Assignment: 7-(03/27/25 20:34) rv1 Diagnosis - Diabetes mellitus due to underlying condition with ketoacidosis without coma kb - Nausea with vomiting, unspecified kb - Abdominal pain, Generalized kb Forms: - Medication Reconciliation Form kb - SBAR form kb - Leadership Thank You Letter kb Critical care time excluding procedures: 19:42 Critical care time: Bedside Care: 16 minutes, Consultation: 15 minutes. Total time: 31 kb minutes Addendum: 03/30/2025 07:02 Co-signature as Attending Physician, Quique Suresh MD I reviewed the patient's care r n provided by the Advanced Practice Provider and agree with the diagnosis and treatment plan. Signatures: Dispatcher [employer] Viridiana Clemons, LEAD FRONT END DEVELOPER-C LEAD FRONT END DEVELOPER-Ckb Quique Suresh MD MD rn Villegas, Rebecca rv1 Aimee Garcia, ERICK RN af3 Emigdio Lopez, LEAD FRONT END DEVELOPER-C LEAD FRONT END DEVELOPER-Cdr5 Danae Alexandre, RN RN tb4 Nadja Cleary RN me1 Corrections: (The following items were deleted from the chart) 03/27 20:34 19:58 kb rv1
--- NOTE | 2025-03-27 19:59 | ER ---
Nurse's Notes [facility] Name: Meir Scanlon Jr Age: 69 yrs Sex: Male : 1955 Arrival Date: 03/27/2025 Time: 18:09 Bed [id number] Private MD: Diagnosis: Diabetes mellitus due to underlying condition with ketoacidosis without coma;Nausea with vomiting, unspecified;Abdominal pain, Generalized Presentation: 03/27 18:22 Chief complaint: Patient states: nausea/vomiting since yesterday. Coronavirus screen: af3 At this time, the client does not indicate any symptoms associated with coronavirus-19. Ebola Screen: No symptoms or risks identified at this time. Initial Sepsis Screen: Does the patient meet any 2 criteria? No. Patient's initial sepsis screen is negative. Does the patient have a suspected source of infection? No. Patient's initial sepsis screen is negative. Risk Assessment: Do you want to hurt yourself or someone else? Patient reports no desire to harm self or others. Onset of symptoms was March 26, 2025. 18:22 Method Of Arrival: Wheelchair af3 18:22 Acuity: REJI 3 af3 Triage Assessment: 18:24 General: Appears in no apparent distress. uncomfortable, well groomed, well developed, af3 Behavior is calm, cooperative, appropriate for age. Pain: Complains of pain in right lower quadrant and left lower quadrant. Neuro: Level of Consciousness is awake, alert, obeys commands, Oriented to person, place, time, situation, Appropriate for age. Cardiovascular: Patient's skin is warm and dry. Respiratory: Airway is patent Respiratory effort is even, unlabored, Respiratory pattern is regular, symmetrical. GI: Reports nausea, vomiting. Historical: - Allergies: 18:24 Codeine; af3 - PMHx: 18:24 Arthritis; Diabetes - IDDM; Hypertension; Kidney stones; LARS syndrome (Unknown); af3 Myocardial infarction; - Immunization history:: Adult Immunizations unknown. - Infectious Disease History:: Denies. - Social history:: Smoking status: Patient denies any tobacco usage or history of. Screenin:50 [facility] ED Fall Risk Assessment (Adult) History of falling in the last 3 months, af3 including since admission No falls in past 3 months (0 pts) Confusion or Disorientation No (0 pts) Intoxicated or Sedated No (0 pts) Impaired Gait No (0 pts) Mobility Assist Device Used No (0 pt) Altered Elimination No (0 pt) Score/Fall Risk Level 0 - 2 = Low Risk Oriented to surroundings, Maintained a safe environment, Educated pt \T\ family on fall prevention, incl call for assistance when getting out of bed. Abuse screen: Denies threats or abuse. Denies injuries from another. Nutritional screening: No deficits noted. Tuberculosis screening: No symptoms or risk factors identified. 19:50 [facility] ED Fall Risk Assessment (Adult) History of falling in the last 3 months, tb4 including since admission No falls in past 3 months (0 pts) Confusion or Disorientation No (0 pts) Intoxicated or Sedated No (0 pts) Impaired Gait No (0 pts) Mobility Assist Device Used No (0 pt) Altered Elimination No (0 pt) Score/Fall Risk Level 0 - 2 = Low Risk Maintained a safe environment. Abuse screen: Denies threats or abuse. Denies injuries from another. Nutritional screening: No deficits noted. Tuberculosis screening: No symptoms or risk factors identified. Assessment: 18:25 General: see traige assessment. af3 18:50 Reassessment: Patient appears in no apparent distress at this time. No changes from af3 previously documented assessment. Patient and/or family updated on plan of care and expected duration. Pain level reassessed. Patient is alert, oriented x 3, equal unlabored respirations, skin warm/dry/pink. 19:29 General: Appears in no apparent distress. comfortable, Behavior is calm, cooperative. tb4 Pain: Complains of pain in abdomen and generalized body pain Pain does not radiate. Pain currently is 2 out of 10 on a pain scale. Quality of pain is described as shooting, Pain began gradually, Is continuous. Neuro: Level of Consciousness is awake, alert, obeys commands, Oriented to person, place, time, situation, Procurement Assistant are weak bilaterally Moves all extremities. Full function Weakness generalized. Gait is unsteady, Speech is normal, Facial symmetry appears normal. Respiratory: Reports Airway is patent Respiratory effort is even, unlabored, Respiratory pattern is regular, symmetrical. GI: Bowel sounds present X 4 quads. Abd is soft Abdomen is tender to palpation X 4 quads. Reports nausea. : No signs and/or symptoms were reported regarding the genitourinary system. EENT: No signs and/or symptoms were reported regarding the EENT system. Derm: No signs and/or symptoms reported regarding the dermatologic system. Skin is intact, is healthy with good turgor, Skin is dry, Skin is normal, Skin temperature is warm. Musculoskeletal: No signs and/or symptoms reported regarding the musculoskeletal system. Circulation, motion, and sensation intact. Range of motion: intact in all extremities, Reports weakness in generalized Pain is 3 out of 10 on a pain scale. 21:19 Reassessment: Patient blood glucose is unreadable. Shows high on Glucometer. tb4 21:50 Reassessment: Report given to [place]. tb4 Vital Signs: 18:22 BP 139 / 70; Pulse 104; Resp 18; Temp 98.3; Pulse Ox 100% on R/A; Weight 69.4 kg; af3 Height 5 ft. 9 in. ; 18:50 BP 130 / 54; Pulse 103; Resp 18; Pulse Ox 97% on R/A; af3 19:50 BP 134 / 56; Pulse 99; Resp 17; Pulse Ox 100% on R/A; Weight 69.4 kg; Height 5 ft. 9 tb4 in. ; Pain 3/10; 21:00 BP 106 / 46; Pulse 89; Resp 16; Pulse Ox 98% on R/A; tb4 22:00 BP 134 / 77; Pulse 67; Resp 17; Pulse Ox 99% on R/A; Pain 0/10; tb4 19:50 Body Mass Index 22.59 (69.40 kg, 175.26 cm) tb4 19:50 Pain Scale: Adult tb4 22:00 Pain Scale: Adult tb4 ED Course: 18:12 Patient arrived in ED. al6 18:13 Viridiana Bueno [facility]-C [facility]. kb 18:13 Quique Suresh MD is Attending Physician. kb 18:15 Radiology exam delayed due to lab results not completed at this time. (BUN/Creatinine) jc4 IV insertion attempt and/or patient not having appropriate IV at this time. 18:21 Aimee Garcia, ERICK is Primary Nurse. af3 18:24 Triage completed. af3 18:24 Arm band placed on. af3 18:35 Initial lab(s) drawn, by me, sent to lab. Inserted saline lock: 20 gauge in right rk3 forearm, using aseptic technique. Blood collected. Flushed with 10 mL NS. 18:50 Patient has correct armband on for positive identification. Bed in low position. Call af3 light in reach. Provided Education on: call light use . 18:50 No provider procedures requiring assistance completed. af3 19:16 CT Abd/Pelvis - IV Contrast Only In Process Unspecified. EDMS 19:50 vehicle monitor technician on. Door closed. Warm blanket given. tb4 19:57 Andrea Soliz MD is Hospitalizing Provider. kb Administered Medications: 18:49 Drug: NS 0.9% IV 1000 ml IV at 1000 ml once; to be given as a bolus over 60 minutes af3 Route: IV; Rate: 1000 ml; Site: right antecubital; 21:19 Follow up: Response: No adverse reaction; IV Status: Completed infusion tb4 18:49 Drug: Ondansetron IVP 4 mg IVP once; over 2 minutes Route: IVP; Site: right antecubital;af3 21:19 Follow up: Response: No adverse reaction; Nausea is decreased tb4 18:49 Drug: fentaNYL (PF) IVP 25 mcg IVP once Route: IVP; Site: right antecubital; af3 21:18 Follow up: Response: No adverse reaction; Pain is decreased; RASS: Alert and Calm (0) tb4 20:01 Drug: Insulin Drip - (Insulin Regular Human IVP 100 units, NS 0.9% IV 100 ml) IV at tb4 calculated rate continuous; Standard concentration 1unit/ml; Dose for DKA is 0.1 units/kg/hr {Co-Signature: me1 (Nadja Cleary RN).} Route: IV; Rate: 7 units/hr; Site: right forearm; 21:48 Follow up: Rate change 8 units/hr tb4 23:05 Follow up: IV Status: Infusion continued tb4 20:02 Drug: NS 0.9% IV 1000 ml IV at 1000 ml once; to be given as a bolus over 60 minutes tb4 Route: IV; Rate: 1000 ml; Site: right forearm; 23:04 Follow up: IV Status: Infusion continued tb4 Medication: 18:51 VIS not applicable for this client. af3 Point of Care Testing: Blood Glucose: 22:17 Blood Glucose: 436 mg/dL; tb4 19:50 Results are unreadable due to being high. tb4 21:08 Unable to read, too high tb4 Ranges: Outcome: 19:58 Decision to Hospitalize by Provider. kb 23:08 Patient left the ED. tb4 Signatures: Dispatcher [employer] EDViridiana Gutierrez, OPERATIONS CHIEFFelecia OPERATIONS CHIEF-Gabriel Collins jc4 Aimee Garcia, RN RN af3 Lorrie Ramírez al6 Pam Tabor rk3 Danae Alexandre RN RN tb4 Nadja Cleary RN me1 Corrections: (The following items were deleted from the chart) 18:24 18:21 Chief complaint: af3 af3
--- NOTE | 2025-03-27 20:38 | RAD REPORT ---
EXAMINATION: CT Abdomen Pelvis W Contrast CLINICAL INDICATION: Male, 69 years old. ABD PAIN TECHNIQUE: CT abdomen and pelvis was performed, after the administration of IV contrast, as per [facility] protocol. Axial, sagittal and coronal reconstructions were obtained. One or more of the following dose reduction techniques were used: Automated exposure control, adjustment of the mA and k V according to patient size, and iterative reconstruction. Unless otherwise specified, incidental findings do not require dedicated imaging follow-up. COMPARISON: No prior exam. FINDINGS: LOWER CHEST: The visualized lung bases are clear. LIVER: Normal in size and contour. No focal lesion. BILIARY SYSTEM: No suspicious abnormalities. SPLEEN: Normal size. No focal lesion. PANCREAS: No mass, ductal dilation, or isabel-pancreatic fluid. ADRENALS: Normal; no mass. KIDNEYS: Normal size and contour. No hydronephrosis. URINARY BLADDER: Unremarkable. GASTROINTESTINAL TRACT: Paucity of intra-abdominal fat somewhat limits evaluation. Marked fluid diste ntion of the stomach. Anastomotic suture lines in the right lower quadrant and near the junction with the anal canal, compatible with sequelae of prior bowel resection. No evidence of free air, sign ificant intra-abdominal free fluid, bowel obstruction or abscess. APPENDIX: Appendix not visualized, but no inflammatory changes in region of appendix. LYMPH NODES: No lymphadenopathy. MUSCULOSKELETAL: No acute or suspicious osseous abnormality. ADDITIONAL FINDINGS: Nonspecific mild fat stranding along the mesentery in the left lower quadrant an d in the pelvis. IMPRESSION: Marked fluid distention of the stomach. Nonspecific fat stranding along the mesentery in the left low er quadrant and in the pelvis. The findings could relate to an ongoing infectious or inflammatory process such as enteritis.
--- NOTE | 2025-03-27 21:24 | P.HP ---
Certification for Inpatient Patient admitted to: Inpatient With expected LOS: >2 Midnights Practitioner: I am a practitioner with admitting privileges, knowledge of patient current condition, hospital course, and medical plan of care. Services: Services provided to patient in accordance with Admission requirements found in Title 42 Section 412.3 of the Code of Federal Regulations Patient History Date of Service: 03/27/25 Reason for admission: DKA History of Present Illness: 69 yrs old Male with past medical history of diabetes, hypertension, hyperlipidemia, bladder syndrome, kidney stones, CAD's status post MT, arthritis who was brought to ER with abdominal pain and vomiting which started yesterday and has been progressively getting worse. Denies any fever or chills. No sick contacts. Patient had a colostomy reversal a few months ago. He was supposed to get a colonoscopy today with Dr. Givens but started having nausea and vomiting and hence cancelled Patient denies any chest pain or shortness of breath. Patient was assessed in the ER and was admitted for further management of DKA Allergies codeine Adverse Reaction (Verified 10/02/23 12:24) Nausea/Vomiting Home medications list reviewed: Yes Home Medications: Insulin NPH Human Isophane [Novolin N] 16 units SQ BIDWM 04/17/20 Insulin Regular, Human [Novolin R] 4 units SQ BIDWM 04/17/20 Aspirin [Aspirin EC 81 MG] 81 mg PO DAILY 30 Days #30 tablet. 04/18/20 Clopidogrel Bisulfate [Plavix*] 1 tab PO DAILY 30 Days #30 tablet 04/18/20 Atorvastatin Calcium [Lipitor] 1 tab PO BEDTIME 30 Days #30 tab 02/16/25 - Past Medical/Surgical History Diabetic: Yes Past Medical History: Reviewed- Non-Contributory -: HTN -: Insulin dependent DM Type 1 -: kidney stones -: colonoscopy -: CAD/MT -: Colon cancer status post chemoradiation Past Surgical History: Reviewed- Non-Contributory -: Colon resection - Family History Father -: Heart disease Mother -: Cancer Notes: breast cancer Sister -: Cancer Notes: breast cancer - Social History Smoking Status: Never smoker Alcohol use: Yes CD- Drugs: No Caffeine use: Yes Review of Systems 10-point ROS is otherwise unremarkable Physical Examination - Vital Signs Temperature: 98.4 F Blood Pressure: 138/72 Pulse: 82 Respirations: 18 Pulse Ox (%): 94 - Physical Exam General: Alert, Oriented x3 HEENT: Atraumatic, Normocephalic Neck: Supple Respiratory: Clear to auscultation bilaterally, Normal air movement Cardiovascular: Regular rate/rhythm, Normal S1 S2 Capillary refill: <2 Seconds Gastrointestinal: Soft and benign, W/out hepatosplenomegaly, Tenderness Musculoskeletal: No clubbing Integumentary: No rashes Neurological: Other (Alert awake nonfocal) Lymphatics: No axilla or inguinal lymphadenopathy - Studies Laboratory Data (last 24 hrs) 03/27/25 03/27/25 03/27/25 18:29 18:29 18:29 WBC 8.40 Hgb 14.1 Hct 42.3 Plt Count 202 Sodium 132 L Potassium 4.7 BUN 25 H Creatinine 1.35 H Glucose 597 H* Phosphorus 4.3 Total Bilirubin 1.2 H AST 23 ALT 28 Alkaline Phosphatase 106 Lipase 8 L Assessment and Plan - Plan Diabetic ketoacidosis Admit to ICU Started on insulin drip Anion gap monitored IV hydration aggressively Oxygen supplementation Will monitor BMP every 4 hours Accu-Chek q. hourly Electrolytes monitor and replace accordingly Hypertension Antihypertensives titrated Continue home medications and titrate as needed Hyperlipidemia Continue statin CKD stage II Monitor renal parameters Electrolytes monitor and replace accordingly CAD History of MT Continue home medications subjective Enteritis Monitor closely Started on antibiotics empirically GI/DVT prophylaxis Advanced directive full code Discharge Plan: Home Plan to discharge in: 48 Hours - Advance Directives Does patient have a Living Will: No Does patient have a Durable POA for Healthcare: No - Code Status/Comfort Care Code Status: Full Code Time Spent Managing Pts Care (In Minutes): 48
[2025-03-27] MEDS ORDERED: D50W 25 GM/50 ML SYRINGE IV PRN ×2 (21:32→22:46)
[2025-03-27] MEDS ORDERED: GLUCAGON 1 MG/VIAL IM PRN ×2 (21:32→22:46)
[2025-03-27] MEDS: D5 0.45 NS 1,000 ML IV SCH (22:00)
[2025-03-27] MEDS ORDERED: INSULIN REGULAR, HUMAN 100 UNIT in NA CHLORIDE 0.9% 100 ML IV SCH (22:00)
[2025-03-27] MEDS: INSULIN REGULAR, HUMAN 100 UNIT in NA CHLORIDE 0.9% 100 ML IV SCH (22:30)
[2025-03-27 22:34] LABS: Anion Gap 15.1 mEq/L (5.0-15.0); BUN Blood Urea Nitrogen 29.0 mg/dL (7-18)
[2025-03-27 22:39] LABS: Glucose Level 475.0 mg/dL (74-106); Potassium 4.1 mEq/L (3.5-5.1)
[2025-03-27] MEDS: NACHLORIDE 0.45% 1,000 ML IV SCH (22:59)
[2025-03-27] MEDS: CEFTRIAXONE 1,000 MG in NA CHLORIDE 0.9% 50 ML IVPB SCH (23:32)
[2025-03-28] MEDS: METRONIDAZOLE 500mg IVPB 500 MG/100 ML BAG IV SCH (00:57)
[2025-03-28 02:38] LABS: Anion Gap 9.5 mEq/L (5.0-15.0); BUN Blood Urea Nitrogen 28.0 mg/dL (7-18); Glucose Level 275.0 mg/dL (74-106); Potassium 3.5 mEq/L (3.5-5.1)
[2025-03-28] MEDS ORDERED: GLUCAGON 1 MG/VIAL IM PRN (03:12)
[2025-03-28] MEDS ORDERED: D10W 125 ML IV PRN (03:12)
[2025-03-28] MEDS: INSULIN GLARGINE 100 UNIT/ML SQ SCH (03:29)
[2025-03-28 06:14] LABS: Absolute Lymphocytes (CBC) 1.6 K/uL (0.7-4.9); Hematocrit 37.0 % (39.6-49.0); Hemoglobin 12.9 g/dL (13.6-17.9); MCH 31.5 pg (27.0-35.0); MCHC 34.8 g/dL (32.0-36.0); MCV 90.6 fL (80-100); MPV 8.3 fL (7.6-11.3); Nucleated RBC Absolute Count 0.0 (0-0); Nucleated Red Blood Cells % 0.1 % (0-0); RBC Red Blood Cell Count 4.08 M/uL (4.33-5.43); White Blood Count 10.90 thou/uL (4.3-10.9)
[2025-03-28 06:25] LABS: Anion Gap 8.2 mEq/L (5.0-15.0); BUN Blood Urea Nitrogen 27.0 mg/dL (7-18); Glucose Level 120.0 mg/dL (74-106); Magnesium 2.1 mg/dL (1.6-2.4); Potassium 4.2 mEq/L (3.5-5.1)
[2025-03-28] MEDS: POTASS/SODIUM PHOSPHATE 1 PKT POWD.PACK PO SCH (07:30)
[2025-03-28] MEDS: INSULIN REGULAR (HUMAN) 100 UNIT/ML SQ SCH (07:30)
--- NOTE | 2025-03-28 08:48 | P.PN ---
Date of Service: 03/28/25 Subjective: feeling better this morning reports intermittent constipation since ostomy reversal will go days without a BM followed by nausea/vomiting and then sugars go high was supposed to get colonoscopy with Dr. Givens day of admission as outpatient Physical Exam: Gen: Alert, Oriented, NAD CV: Regular rate and rhythm, no edema Pulm: Nonlabored respirations on room air, clear bilaterally Abdomen: Soft, mild abdominal tenderness, nondistended Neuro: Normal strength, normal affect Problem List: DKA resolved IDDM Possible acute enteritis CKD Hypertension Hyperlipidemia Hx of colon cancer s/p resection and chemoradiation Hx of CAD s/p PCI DKA resolved IDDM Possible acute enteritis On admission presents with abdominal pain associated with nausea/vomiting. Was scheduled to get colonoscopy yesterday with Dr. Givens but then ended up in ER. He reports since his ostomy reversal, he gets backed up and goes days without BM, followed by nausea/vomiting and then sugars go high CT abd/pelvis noted Marked fluid distention of the stomach. +Nonspecific fat stranding along the mesentery in LLQ and pelvis possibly related to infectious/inflammatory enteritis. Started on insulin drip and admitted to ICU. Anion gap 23.7 on admission, Glc levels initially > 500 DKA resolved. Anion gap closed overnight S/P insulin drip. Start semglee 10u. Titrate as needed Continue empiric Rocephin/Flagyl to cover enteritis add daily laxative continue IVF CKD Hypertension Hyperlipidemia Hx of colon cancer s/p resection and chemoradiation Hx of CAD s/p PCI confirm home meds, restart as appropriate VTE: SCD Code: Full Dispo: Home Possible downgrade to floor later today if tolerating diet and glc ok
[2025-03-28] MEDS: NACHLORIDE 0.45% 1,000 ML IV SCH (08:53)
[2025-03-28 11:02] VITALS: O2SAT 100
[2025-03-28] MEDS: ONDANSETRON 4 MG/2 ML VIAL IV PRN (20:49)
[2025-03-28] MEDS: DOCUSATE NA/SENNA CONC 1 TAB PO SCH (20:49)
[2025-03-29 05:04] LABS: Absolute Lymphocytes (CBC) 1.8 K/uL (0.7-4.9); Hematocrit 33.2 % (39.6-49.0); Hemoglobin 11.8 g/dL (13.6-17.9); MCH 32.0 pg (27.0-35.0); MCHC 35.4 g/dL (32.0-36.0); MCV 90.4 fL (80-100); MPV 8.5 fL (7.6-11.3); Nucleated RBC Absolute Count 0.0 (0-0); Nucleated Red Blood Cells % 0.0 % (0-0); RBC Red Blood Cell Count 3.67 M/uL (4.33-5.43); White Blood Count 8.30 thou/uL (4.3-10.9)
[2025-03-29 05:23] LABS: ALT/SGPT 54.0 U/L (16-61); AST/SGOT 71.0 U/L (15-37); Albumin 3.0 g/dL (3.4-5.0); Albumin/Globulin Ratio 1.3 (1.1-1.8); Alkaline Phosphatase 80.0 U/L (45-117); Anion Gap 9.1 mEq/L (5.0-15.0); BUN Blood Urea Nitrogen 20.0 mg/dL (7-18); Globulin 2.4 g/dL (2.3-3.5); Glucose Level 165.0 mg/dL (74-106); Magnesium 1.8 mg/dL (1.6-2.4); Potassium 4.1 mEq/L (3.5-5.1)
[2025-03-29 07:10] VITALS: BMI 22.6
[2025-03-29] MEDS: INSULIN REGULAR (HUMAN) 100 UNIT/ML SQ SCH (08:25)
[2025-03-29] MEDS: MAGNESIUM SULFATE 1 gm IVPB 1 GM/100 ML BAG IV ONE (08:25)
--- NOTE | 2025-03-29 11:45 | P.PN ---
Date of Service: 03/29/25 Subjective: Doing okay denies any new issues; still with some nausea, and fullness in abdomen, no BM in 7 days vitals stable Physical Exam: Gen: Alert, Oriented, NAD CV: Regular rate and rhythm, no edema Pulm: Nonlabored respirations on room air, clear bilaterally Abdomen: Soft, mild abdominal tenderness, nondistended Neuro: Normal strength, normal affect Problem List: DKA resolved IDDM Possible acute enteritis CKD Hypertension Hyperlipidemia Hx of colon cancer s/p resection and chemoradiation Hx of CAD s/p PCI DKA resolved IDDM Possible acute enteritis On admission presents with abdominal pain associated with nausea/vomiting. Was scheduled to get colonoscopy yesterday with Dr. Givens but then ended up in ER. He reports since his ostomy reversal, he gets backed up and goes days without BM, followed by nausea/vomiting and then sugars go high CT abd/pelvis noted Marked fluid distention of the stomach. +Nonspecific fat stranding along the mesentery in LLQ and pelvis possibly related to infectious/i nflammatory enteritis. Started on insulin drip and admitted to ICU. Anion gap 23.7 on admission, Glc levels initially > 500 DKA resolved. Anion gap closed overnight S/P insulin drip. Start semglee 10u. Titrate as needed Continue empiric Rocephin/Flagyl to cover enteritis Senokot PRN for constipation continue IVF CT abd/pelvis with PO contrast to eval pSBO, anastamosis stricture s/p ostomy revision CKD Hypertension Hyperlipidemia Hx of colon cancer s/p resection and chemoradiation Hx of CAD s/p PCI confirm home meds, restart as appropriate VTE: SCD Code: Full Dispo: Home
--- NOTE | 2025-03-29 17:26 | RAD REPORT ---
EXAMINATION: CT Abdomen Pelvis Wo Contrast CLINICAL INDICATION: Male, 69 years old. eval pSBO, anastamosis stricture s/p ostomy revisi TECHNIQUE: CT abdomen and pelvis was performed, without IV contrast, as per department protocol. Axia l, sagittal and coronal reconstructions were obtained. One or more of the following dose reduction techniques were used: Automated exposure control, adjustment of the mA and kV according to the patien t size, and iterative reconstruction. Unless otherwise specified, incidental findings do not require dedicated imaging follow-up. COMPARISON: 03/27/2025 FINDINGS: The lack of intravenous contrast limits the sensitivity of this exam for evaluation of solid visceral organs, vascular structures, and retroperitoneum. LOWER CHEST: Trace layering bilateral pleural effusions. Mild bibasilar platelike atelectasis. LIVER: Normal in size and contour. No focal lesion. BILIARY SYSTEM: Mildly dependent sludge. No other suspicious abnormalities. SPLEEN: Normal size. No focal lesion. PANCREAS: No mass, ductal dilation, or isabel-pancreatic fluid. ADRENALS: Normal; no mass. KIDNEYS AND URETERS: Normal size and contour. No hydronephrosis. URINARY BLADDER: Normal contour. GASTROINTESTINAL TRACT: No evidence of bowel obstruction, free air or abscess. Distal colon is not we ll visualized which could be related to suboptimal distention. . Mild free fluid along the right upper quadrant and pelvis. APPENDIX: Appendix not visualized, but no inflammatory changes in region of appendix. LYMPH NODES: No lymphadenopathy. MUSCULOSKELETAL: No acute or suspicious osseous abnormality. ADDITIONAL FINDINGS: Prostatomegaly. IMPRESSION: Mild free ascites. Trace bilateral pleural effusions. No other acute process identified.
[2025-03-30 05:54] LABS: Absolute Lymphocytes (CBC) 1.3 K/uL (0.7-4.9); Hematocrit 37.9 % (39.6-49.0); Hemoglobin 13.1 g/dL (13.6-17.9); MCH 31.7 pg (27.0-35.0); MCHC 34.5 g/dL (32.0-36.0); MCV 91.8 fL (80-100); MPV 8.6 fL (7.6-11.3); Nucleated RBC Absolute Count 0.0 (0-0); Nucleated Red Blood Cells % 0.1 % (0-0); RBC Red Blood Cell Count 4.13 M/uL (4.33-5.43); White Blood Count 5.60 thou/uL (4.3-10.9)
[2025-03-30 06:06] LABS: Anion Gap 8.4 mEq/L (5.0-15.0); BUN Blood Urea Nitrogen 12.0 mg/dL (7-18); Glucose Level 280.0 mg/dL (74-106); Magnesium 2.0 mg/dL (1.6-2.4); Potassium 4.4 mEq/L (3.5-5.1)
[2025-03-30] MEDS: INSULIN NPH (HUMAN) 100 UNITS/ML SQ SCH (10:14)
--- NOTE | 2025-03-30 11:29 | P.PN ---
Date of Service: 03/30/25 Subjective: feeling better today tolerating diet no new issues Physical Exam: Gen: Alert, Oriented, NAD CV: Regular rate and rhythm, no edema Pulm: Nonlabored respirations on room air, clear bilaterally Abdomen: Soft, mild abdominal tenderness, nondistended Neuro: Normal strength, normal affect Problem List: DKA resolved IDDM Possible acute enteritis CKD Hypertension Hyperlipidemia Hx of colon cancer s/p resection and chemoradiation Hx of CAD s/p PCI DKA resolved IDDM Possible acute enteritis On admission presents with abdominal pain associated with nausea/vomiting. Was scheduled to get colonoscopy yesterday with Dr. Givens but then ended up in ER. He reports since his ostomy reversal, he gets backed up and goes days without BM, followed by nausea/vomiting and then sugars go high CT abd/pelvis noted Marked fluid distention of the stomach. +Nonspecific fat stranding along the mesentery in LLQ and pelvis possibly related to infectious/inflammatory enteritis. Started on insulin drip and admitted to ICU. Anion gap 23.7 on admission, Glc levels initially > 500 DKA resolved. Anion gap closed. S/P insulin drip. glc in 300s today. Insulin adjusted. Titrate as needed Possible acute enteritis CT abd/pelvis noted Marked fluid distention of the stomach. +Nonspecific fat stranding along the mesentery in LLQ and pelvis possibly related to infectious/inflammatory enteritis. Continue empiric Rocephin/Flagyl to cover enteritis Senokot PRN for constipation repeat CT abd/pelvis was negative for any acute findings. CKD Hypertension Hyperlipidemia Hx of colon cancer s/p resection and chemoradiation Hx of CAD s/p PCI confirm home meds, restart as appropriate VTE: SCD Code: Full Dispo: Home Pending better glc control; consistently ~200 or less
[2025-03-30] MEDS: INSULIN REGULAR (HUMAN) 100 UNIT/ML IV ONE (12:51)
[2025-03-30 16:29] VITALS: BP 120/58; TEMP 98.1
[2025-03-30] MEDS: INSULIN REGULAR (HUMAN) 100 UNIT/ML SQ SCH (16:30)
[2025-03-30] MEDS ORDERED: ATORVASTATIN 80 MG TAB PO SCH (21:00)
[2025-03-31] MEDS ORDERED: ASPIRIN EC 81 MG TAB PO SCH (09:00)
[2025-03-31] MEDS ORDERED: CLOPIDOGREL 75 MG TABLET PO SCH (09:00)
--- NOTE | 2025-04-01 11:15 | P.DS ---
Admission Date: 03/27/25 Discharge Date: 03/30/25 Disposition: DC HOME/HOME HEALTH CARE Discharge Condition: GOOD Reason for Admission: DKA Brief History of Present Illness: 69 yo M, PMH: diabetes, hypertension, hyperlipidemia, bladder syndrome, kidney stones, CAD's status post OR, arthritis Patient was brought to ER with abdominal pain and vomiting which started yesterday and has been progressively getting worse. Denies any fever or chills. No sick contacts. Patient had a colostomy reversal a few months ago. He was supposed to get a colonoscopy today with Dr. Givens but started having nausea and vomiting and hence cancelled Patient denies any chest pain or shortness of breath. Patient was assessed in the ER and was admitted for further management of DKA Hospital Course: Problem List: DKA resolved IDDM Possible acute enteritis CKD Hypertension Hyperlipidemia Hx of colon cancer s/p resection and chemoradiation Hx of CAD s/p PCI Physician discharge instructions: Patient presented to ED with abdominal pain associated with nausea vomiting secondary to DKA. Glucose levels were initially greater than 500 on arrival. Lab work on admission was consistent with DKA with anion gap of 23 associated with PIERCE (1.35 Cr). Patient was started on an insulin drip and had improvement. Anion gap closed within 24 hours of admission. Insulin drip was transitioned to long acting insulin with sliding scale and patient continued to improve. PIERCE resolved with DKA resolution and IVF. Check glucose levels around the same time before and after meals. Keep a daily log of glucose readings to take to follow up appointments for further adjustments of diabetic medications. On admission he reported having a scheduled colonoscopy with Dr. Givens and was doing the colonoscopy prep, but then ended up in the ER. He reports since his ostomy reversal, he gets backed up and goes days without BM, followed by nausea/vomiting and then sugars go high. CT abd/pelvis noted Marked fluid distention of the stomach and nonspecific fat stranding along the mesentery in LLQ and pelvis possibly related to infectious/inflammatory enteritis. Patient received empiric Rocephin/Flagyl to cover possible enteritis. Repeat CT abdomen/pelvis with contrast was negative for any acute process, only noted trace bilateral effusions, mild free ascites, prostatomegaly. He never had a fever or leukocytosis. no evidence of acute infection. No further antibiotics warranted. Discussed his symptoms improve quickly with resolution of his DKA, which makes it difficult to assign the cause of his symptoms to some other process. He feels something is getting stuck / backed up since his surgery. CT with PO contrast was performed which did not reveal any acute findings - but did note did not visualize the distal colon very well. He does report having some pencil thin BM's at times, and has required dilatation before by his surgeon. Discussed to follow up with his doctor to complete workup with colonoscopy. Discussed maintaining bowel movement every 3 or so days. He takes colace and daily miralax. Suggested to increase to twice a day miralax. If no bowel mo vement by day 3-4, to take an additional laxative - whether it be a suppository, enema, or other oral laxative like milk of magnesia or mag citrate, to ensure he doesn't go 5-7 days without a bowel movement. Also discussed, need to have better control of his insulin / glucose. To maintain an insulin/glucose diary and follow up closely with his PCP. It seems he is having some extreme highs and lows. If he is experiencing some GI issues - constipation / fullness, that changes his nutritional intake, this can lead to sub optimal control of glucose levels, contributing to his DKA presentations. Review of EMR did note, he had similarly described issues and in DKA prior to ostomy reversal. Medications: no new medications. Adjust insulin as needed to maintain good glucose control. Follow up: PCP 3-[address] Givens in near future Please call to schedule / confirm appointments Physical Exam: Gen: Alert, Oriented, NAD CV: Regular rate and rhythm, no edema Pulm: Nonlabored respirations on room air, clear bilaterally Abdomen: Soft, mild abdominal tenderness, nondistended Neuro: Normal strength, normal affect Vital Signs/Physical Exam: Temp Pulse Resp BP Pulse Ox 98.1 F 64 16 120/58 L 100 03/30/25 16:00 03/30/25 16:00 03/30/25 16:00 03/30/25 16:03/30/25 16:00 Laboratory Data at Discharge: WBC 5.60 thou/uL (4.3-10.9) 03/30/25 05:16 Hgb 13.1 g/dL (13.6-17.9) L D 03/30/25 05:16 Hct 37.9 % (39.6-49.0) L 03/30/25 05:16 Plt Count 145 thou/uL (152-406) L 03/30/25 05:16 Sodium 135 mEq/L (136-145) L 03/30/25 05:16 Potassium 4.4 mEq/L (3.5-5.1) 03/30/25 05:16 BUN 12 mg/dL (7-18) 03/30/25 05:16 Creatinine 0.72 mg/dL (0.70-1.30) 03/30/25 05:16 Glucose 280 mg/dL (74-106) H 03/30/25 05:16 Phosphorus 2.0 mg/dL (2.5-4.9) L 03/28/25 05:56 Magnesium 2.0 mg/dL (1.6-2.4) 03/30/25 05:16 Total Bilirubin 0.7 mg/dL (0.2-1.0) 03/29/25 04:40 AST 71 U/L (15-37) H 03/29/25 04:40 ALT 54 U/L (16-61) 03/29/25 04:40 Alkaline Phosphatase 80 U/L (45-117) 03/29/25 04:40 Lipase 8 U/L (13-75) L 03/27/25 18:29 Home Medications: Insulin NPH Human Isophane [Novolin N] 16 units SQ BIDWM 04/17/20 Insulin Regular, Human [Novolin R] 4 units SQ BIDWM 04/17/20 Aspirin [Aspirin EC 81 MG] 81 mg PO DAILY 30 Days #30 tablet.dr 04/18/20 Clopidogrel Bisulfate [Plavix*] 1 tab PO DAILY 30 Days #30 tablet 04/18/20 Atorvastatin Calcium [Lipitor] 1 tab PO BEDTIME 30 Days #30 tab 02/16/25 Physician Discharge Instructions: Physician discharge instructions: Patient presented to ED with abdominal pain associated with nausea vomiting secondary to DKA. Glucose levels were initially greater than 500 on arrival. Lab work on admission was consistent with DKA with anion gap of 23 associated with PIERCE (1.35 Cr). Patient was started on an insulin drip and had improvement. Anion gap closed within 24 hours of admission. Insulin drip was transitioned to long acting insulin with sliding scale and patient continued to improve. PIERCE resolved with DKA resolution and IVF. Check glucose levels around the same time before and after meals. Keep a daily log of glucose readings to take to follow up appointments for further adjustments of diabetic medications. On admission he reported having a scheduled colonoscopy with Dr. Givens and was doing the colonoscopy prep, but then ended up in the ER. He reports since his ostomy reversal, he gets backed up and goes days without BM, followed by nausea/vomiting and then sugars go high. CT abd/pelvis noted Marked fluid distention of the stomach and nonspecific fat stranding along the mesentery in LLQ and pelvis possibly related to infectious/inflammatory enteritis. Patient received empiric Rocephin/Flagyl to cover possible enteritis. Repeat CT abdomen/pelvis with contrast was negative for any acute process, only noted trace bilateral effusions, mild free ascites, prostatomegaly. He never had a f ever or leukocytosis. no evidence of acute infection. No further antibiotics warranted. Discussed his symptoms improve quickly with resolution of his DKA, which makes it difficult to assign the cause of his symptoms to some other process. He feels something is getting stuck / backed up since his surgery. CT with PO contrast was performed which did not reveal any acute findings - but did note did not visualize the distal colon very well. He does report having some pencil thin BM's at times, and has required dilatation before by his surgeon. Discussed to follow up with his doctor to complete workup with colonoscopy. Discussed maintaining bowel movement every 3 or so days. He takes colace and daily miralax. Suggested to increase to twice a day miralax. If no bowel movement by day 3-4, to take an additional laxative - whether it be a suppository, enema, or other oral laxative like milk of magnesia or mag citrate, to ensure he doesn't go 5-7 days without a bowel movement. Also discussed, need to have better control of his insulin / glucose. To maintain an insulin/glucose diary and follow up closely with his PCP. It seems he is having some extreme highs and lows. If he is experiencing some GI issues - constipation / fullness, that changes his nutritional intake, this can lead to sub optimal control of glucose levels, contributing to his DKA presentations. Review of EMR did note, he had similarly described issues and in DKA prior to ostomy reversal. Medications: no new medications. Adjust insulin as needed to maintain good glucose control. Follow up: PCP 3-[address] Givens in near future Please call to schedule / confirm appointments Followup: Catie Sheikh NP [Primary Care Provider] - 1-2 Weeks Time spent managing pt's care (in minutes): 45
== END 2025-03-30 18:05 | disposition home health service (06) | DRG 638 ==
LOC: ER 18:09 → 3RD-ICU 21:32 → 2ND 03-28 13:45
PROVIDERS: ADMIT Family Medicine; ATTEND Hospitalist
DX: E11.10 Type 2 diabetes mellitus with ketoacidosis without coma (principal); N17.9 Acute kidney failure, unspecified; R18.8 Other ascites; E78.5 Hyperlipidemia, unspecified; K59.00 Constipation, unspecified; M19.90 Unspecified osteoarthritis, unspecified site; K52.9 Noninfective gastroenteritis and colitis, unspecified; I12.9 Hypertensive chronic kidney disease with stage 1 through stage 4 chronic kidney disease, or unspecified chronic kidney disease; N18.2 Chronic kidney disease, stage 2 (mild); E11.22 Type 2 diabetes mellitus with diabetic chronic kidney disease; I25.10 Atherosclerotic heart disease of native coronary artery without angina pectoris; I25.2 Old myocardial infarction; Z93.3 Colostomy status; Z88.5 Allergy status to narcotic agent; Z79.4 Long term (current) use of insulin; Z79.82 Long term (current) use of aspirin; Z92.21 Personal history of antineoplastic chemotherapy; Z79.02 Long term (current) use of antithrombotics/antiplatelets; Z79.899 Other long term (current) drug therapy; Z85.038 Personal history of other malignant neoplasm of large intestine
CPT/HCPCS: 36415; 74176; 74177; 80048; 80053; 82010; 82947; 83690; 83735; 84100; 85025; 93005; 96361; 96365; 96366; 96375; 99285; J0696; J1815; J2405; J3010; J3475; J7030; Q9967